=== PATIENT | female | born 1945 | race Caucasian/White ===

== ENCOUNTER → 2017-11-13 11:08 | Outpatient (CLI) | payer MEDICARE, SELFPAY ==
[2017-11-13 11:12] LABS: Bacteria 0 SEEN /hpf (None Seen); Mucous, Urine 0 SEEN /hpf (<or=2+); Red Blood Cells-Urine 0 SEEN /hpf (0-5); Squamous Epithelial Cells - UA 0 SEEN /hpf (5-10); White Blood Cells 0 SEEN /hpf (0-5)
[2017-11-13 14:42] LABS: Absolute Lymphocyte Count 1.34 X10^3/ul (0.83-4.51); Absolute Neutrophil Count 3.1 X10^3/uL (2.0-7.7); Basophil# 0.02 X10^3/uL; Basophil% 0.4 % (0-1); Hematocrit 40.1 % (37-47); Hemoglobin 12.9 g/dl (12.0-15.0); Lymphocyte # 1.34 X10^3/ul (4.0); Lymphocyte % 26.6 % (19-41); Mean Corp Hgb Conc 32.2 g/gl (32-36); Mean Corpuscular Hgb 29.8 pg (27.0-32.0); Mean Corpuscular Volume 92.6 fL (81-99); Mean Platelet Vol. 11.3 fl (6.2-12.0); Monocyte# 0.45 X10^3/uL; Monocyte% 8.9 % (0-10); Neutrophil # 3.13 X10^3/uL (2.7-7.7); Neutrophil % 62.1 % (47-70); POSITIVE COUNT NO; POSITIVE DIFFERENTIAL NO; POSITIVE MORPHOLOGY NO; Platelet Count 210 K/mm3 (150-450); RBC Distribution Width CV 13.2 % (11.6-14.6); RBC Distribution Width SD 43.9 fl (35.1-43.9); Red Blood Count 4.33 M/mm3 (4.2-5.4)
[2017-11-13 14:44] LABS: Color, Urine Yellow (Yellow); Glucose, Dipstick Normal (Normal); Ketone-Dipstick Negative (Negative); Protein-Dipstick Negative (Negative); Specific Gravity, Urine 1.005 (1.002-1.030); Urine Bilirubin Dipstick Negative (Negative); Urine Clarity Clear (Clear); Urine pH 6.5 (5.0 - 8.0)
[2017-11-13 14:45] LABS: Leukocyte Esterase-Dipstick Negative /ul (Negative); Nitrite-Dipstick Negative (Negative); Occult Blood-Urine Negative /ul (Negative); Urine Urobilinogen Normal (Normal)
[2017-11-13 14:58] LABS: Vitamin D,25 Hydroxy 46.2 ng/mL (29.95-100.01)
== END ==
PROVIDERS: Family Provider Family Medicine; PCP Family Medicine; Visit Provider Family Medicine
DX: N18.3 Chronic kidney disease, stage 3 (moderate) (principal)
CPT/HCPCS: 36415; 81001; 82306; 85025

== ENCOUNTER → 2017-11-20 10:41 | Outpatient (CLI) | payer MEDICARE, SELFPAY ==
[2017-11-20 12:28] LABS: Protein, Urine (Random) < 6.0 mg/dL (<11.9); Protein:Creat Ratio 65 mg/g CRE (0-200)
[2017-11-20 12:45] LABS: ALB/GLOB Ratio 0.9 RATIO (0.9-2.4); AST(SGOT) 20 U/L (15-37); Alanine Aminotransfer ALT/SGPT 20 U/L (13-56); Albumin, Serum 3.5 g/dL (3.2-5.0); Alkaline Phosphatase 69 U/L (45-117); Anion Gap 9 (5-15); BUN 12 mg/dL (7-18); BUN/Creat Ratio 9.3 RATIO (10-20); Chloride 108 mmol/L (98-107); Cholesterol 236 mg/dL (200); Creatinine, Serum 1.29 mg/dL (0.55-1.02); EST Glomerular Filtration Rate 43 mL/min (>60); Est Glom Filt Rate - Afr Amer 52 mL/min (>60); Globulin 3.9 g/dL (2.2-4.2); Glucose 110 mg/dL (74-106); High Density Lipoprotein 57 mg/dL; Phosphorus 3.4 mg/dL (2.5-4.9); Protein, Total 7.4 g/dL (6.4-8.2); Sodium Level 142 mmol/L (136-145); Thyroid Stim Hormone (TSH) 1.02 uIU/mL (0.358-3.74); Triglycerides 166 mg/dL; Very Low Density Lipoprotein 33 mg/dL (5-40)
[2017-11-20 12:55] LABS: PTHIN 44.5 pg/mL (18.4-80.1)
== END ==
PROVIDERS: Family Provider Family Medicine; PCP Family Medicine; Visit Provider Family Medicine
DX: I12.9 Hypertensive chronic kidney disease with stage 1 through stage 4 chronic kidney disease, or unspecified chronic kidney disease (principal); N18.3 Chronic kidney disease, stage 3 (moderate); E78.2 Mixed hyperlipidemia
CPT/HCPCS: 36415; 80053; 80061; 82570; 83970; 84100; 84156; 84443

== ENCOUNTER → 2018-01-29 10:51 | Outpatient (CLI) | payer MEDICARE, SELFPAY ==
--- NOTE | 2018-01-29 11:04 | BD_ITS ---
STUDY: DUAL ENERGY X-RAY ABSORPTIOMETRY / DXA REASON FOR EXAM: Female, 72 years old. The patient is postmenopausal. Loss of height. TECHNIQUE: Bone Mineral Density (BMD) measurements of lumbar spine and bilateral hips were obtained. COMPARISON: None. FINDINGS: Lumbar Spine (L1-L4): g/cm2 (1.009) / T-score (-1.6) / Z-score (0.2) Findings are suggestive of osteopenia with a moderate fracture risk. Left Femur Total: g/cm2 (0.771) / T-score (-1.9) / Z-score (-0.2) Left Femoral Neck: g/cm2 (0.645) / T-score (-2.8) / Z-score (-0.9) Right Femur Total: g/cm2 (0.796) / T-score (-1.7) / Z-score (0.0) Right Femoral Neck: g/cm2 (0.719) / T-score (-2.3) / Z-score (-0.4) BD/Dexa Bone Density Study IMPRESSION: The patient is considered osteoporotic as outlined below according to [employer] (WHO) criteria with a high fracture risk. Reference Information: The T-score is the number of standard deviations above or below the standard which is normal for young adults at their peak bone mineral density. The World Health Organization (WHO) interprets the T-scores as follows: Above -1 Normal bone density Between -1 and -2.5 Osteopenia Equal to / or below -2.5 Osteoporosis As a practical clinical guideline, osteopenia may be graded as follows: Mild -1 through -1.5 Moderate -1.6 through -2.0 Severe -2.1 through -2.4 The Z-score is the number of standard deviations above or below age-matched controls. A Z-score of less than -1.5 would be considered abnormal. References: 1. NIH Osteoporosis and Related Bone Diseases http://www.osteo.org 2. International Society for Clinical Densitometry http://www.iscd.org 3. National Osteoporosis Foundation http://www.nof.org Electronically Signed: Kevin Milton MD at 9:01 EDT Tel [phone], Service support ,
== END ==
PROVIDERS: Family Provider Family Medicine; PCP Family Medicine; Visit Provider Family Medicine
DX: Z13.820 Encounter for screening for osteoporosis (principal); Z78.0 Asymptomatic menopausal state; M81.0 Age-related osteoporosis without current pathological fracture
CPT/HCPCS: 77080

== ENCOUNTER → 2018-02-13 09:42 | Outpatient (CLI) | payer MEDICARE, SELFPAY ==
[2018-02-13 09:48] LABS: Bacteria 0 SEEN /hpf (None Seen); Mucous, Urine 0 SEEN /hpf (<or=2+); Red Blood Cells-Urine 0 SEEN /hpf (0-5); White Blood Cells 0 SEEN /hpf (0-5)
[2018-02-13 12:19] LABS: Color, Urine Yellow (Yellow); Glucose, Dipstick Normal (Normal); Ketone-Dipstick Negative (Negative); Leukocyte Esterase-Dipstick Negative /ul (Negative); Nitrite-Dipstick Negative (Negative); Occult Blood-Urine Negative /ul (Negative); Protein-Dipstick Negative (Negative); Urine Bilirubin Dipstick Negative (Negative); Urine Clarity Clear (Clear); Urine Urobilinogen Normal (Normal)
[2018-02-13 12:27] LABS: Squamous Epithelial Cells - UA 0-5 SEEN /hpf (5-10)
[2018-02-13 12:28] LABS: Protein, Urine (Random) 9.7 mg/dL (<11.9); Protein:Creat Ratio 102 mg/g CRE (0-200)
[2018-02-13 12:44] LABS: Hematocrit 40.1 % (37-47); Hemoglobin 12.8 g/dl (12.0-15.0); Mean Corp Hgb Conc 31.9 g/gl (32-36); Mean Corpuscular Hgb 29.4 pg (27.0-32.0); Mean Platelet Vol. 11.2 fl (6.2-12.0); Platelet Count 212 K/mm3 (150-450); RBC Distribution Width CV 13.7 % (11.6-14.6); RBC Distribution Width SD 45.2 fl (35.1-43.9); Red Blood Count 4.36 M/mm3 (4.2-5.4); White Blood Count 4.4 K/mm3 (4.4-11.0)
[2018-02-13 12:48] LABS: Scan Indicated on CBC? Y/N NO
[2018-02-13 13:01] LABS: ALB/GLOB Ratio 0.9 RATIO (0.9-2.4); AST(SGOT) 22 U/L (15-37); Alanine Aminotransfer ALT/SGPT 26 U/L (13-56); Albumin, Serum 3.5 g/dL (3.2-5.0); Alkaline Phosphatase 72 U/L (45-117); Anion Gap 7 (5-15); BUN 14 mg/dL (7-18); BUN/Creat Ratio 11.4 RATIO (10-20); Calcium,Total 8.8 mg/dL (8.5-10.1); Chloride 109 mmol/L (98-107); Creatinine, Serum 1.23 mg/dL (0.55-1.02); EST Glomerular Filtration Rate 45 mL/min (>60); Est Glom Filt Rate - Afr Amer 55 mL/min (>60); Globulin 3.8 g/dL (2.2-4.2); Glucose 87 mg/dL (74-106); Potassium 4.1 mmol/L (3.5-5.1); Protein, Total 7.3 g/dL (6.4-8.2); Sodium Level 141 mmol/L (136-145)
[2018-02-13 13:19] LABS: Vitamin D,25 Hydroxy 44.1 ng/mL (29.95-100.01)
== END ==
PROVIDERS: Family Provider Family Medicine; PCP Family Medicine; Visit Provider Family Medicine
DX: N18.3 Chronic kidney disease, stage 3 (moderate) (principal); E55.9 Vitamin D deficiency, unspecified
CPT/HCPCS: 36415; 80053; 81001; 82306; 82570; 84156; 85027

== ENCOUNTER → 2018-03-25 08:28 | Outpatient (CLI) | payer MEDICARE, SELFPAY ==
[2018-03-25 12:23] LABS: Anion Gap 5 (5-15); BUN 11 mg/dL (7-18); BUN/Creat Ratio 8.2 RATIO (10-20); Calcium,Total 9.4 mg/dL (8.5-10.1); Chloride 106 mmol/L (98-107); Creatinine, Serum 1.34 mg/dL (0.55-1.02); EST Glomerular Filtration Rate 41 mL/min (>60); Est Glom Filt Rate - Afr Amer 50 mL/min (>60); Glucose 99 mg/dL (74-106); Potassium 3.7 mmol/L (3.5-5.1); Sodium Level 140 mmol/L (136-145)
== END ==
PROVIDERS: Family Provider Family Medicine; PCP Family Medicine; Visit Provider Family Medicine
DX: I10 Essential (primary) hypertension (principal)
CPT/HCPCS: 36415; 80048

== ENCOUNTER → 2018-07-09 10:27 | Outpatient (CLI) | payer MEDICARE, SELFPAY ==
[2018-07-09 10:33] LABS: Bacteria 0 SEEN /hpf (None Seen); Mucous, Urine 0 SEEN /hpf (<or=2+); Red Blood Cells-Urine 0 SEEN /hpf (0-5); White Blood Cells 0 SEEN /hpf (0-5)
[2018-07-09 12:11] LABS: Absolute Lymphocyte Count 1.47 X10^3/ul (0.83-4.51); Absolute Neutrophil Count 2.9 X10^3/uL (2.0-7.7); Basophil# 0.03 X10^3/uL; Basophil% 0.6 % (0-1); Eosinophil# 0.12 X10^3/uL; Eosinophils% 2.4 % (0-5); Hematocrit 41.7 % (37-47); Hemoglobin 13.4 g/dl (12.0-15.0); Lymphocyte # 1.47 X10^3/ul (4.0); Lymphocyte % 29.2 % (19-41); Mean Corp Hgb Conc 32.1 g/gl (32-36); Mean Corpuscular Volume 93.3 fL (81-99); Mean Platelet Vol. 11.1 fl (6.2-12.0); Monocyte# 0.47 X10^3/uL; Monocyte% 9.3 % (0-10); Neutrophil # 2.93 X10^3/uL (2.7-7.7); Neutrophil % 58.3 % (47-70); Platelet Count 221 K/mm3 (150-450); RBC Distribution Width CV 13.4 % (11.6-14.6); RBC Distribution Width SD 44.1 fl (35.1-43.9); Red Blood Count 4.47 M/mm3 (4.2-5.4)
[2018-07-09 12:23] LABS: Anion Gap 8 (5-15); BUN 14 mg/dL (7-18); BUN/Creat Ratio 9.8 RATIO (10-20); Calcium,Total 9.4 mg/dL (8.5-10.1); Chloride 106 mmol/L (98-107); Cholesterol 242 mg/dL (200); Creatinine, Serum 1.43 mg/dL (0.55-1.02); EST Glomerular Filtration Rate 38 mL/min (>60); Est Glom Filt Rate - Afr Amer 46 mL/min (>60); Glucose 91 mg/dL (74-106); High Density Lipoprotein 56 mg/dL; Phosphorus 3.5 mg/dL (2.5-4.9); Sodium Level 140 mmol/L (136-145); Triglycerides 185 mg/dL; Very Low Density Lipoprotein 37 mg/dL (5-40)
[2018-07-09 12:25] LABS: POSITIVE COUNT NO; POSITIVE DIFFERENTIAL NO; POSITIVE MORPHOLOGY NO
[2018-07-09 12:29] LABS: Vitamin D,25 Hydroxy 43.2 ng/mL (29.95-100.01)
[2018-07-09 13:03] LABS: Color, Urine Yellow (Yellow); Glucose, Dipstick Normal (Normal); Ketone-Dipstick Negative (Negative); Leukocyte Esterase-Dipstick 25 /ul (Negative); Nitrite-Dipstick Negative (Negative); Occult Blood-Urine Negative /ul (Negative); Protein-Dipstick Negative (Negative); Specific Gravity, Urine 1.015 (1.002-1.030); Urine Bilirubin Dipstick Negative (Negative); Urine Clarity Clear (Clear); Urine Urobilinogen Normal (Normal)
[2018-07-09 13:13] LABS: Squamous Epithelial Cells - UA 0-5 SEEN /hpf (5-10)
--- OUTSIDE RECORDS SUMMARY | 2018-09-03 18:44 | XMS RPT_ITS ---
:1945 Author Organization OH[facility] Care Team Providers Name Role Phone GEORGES ESCOBAR Referring Unavailable Georges Escobar Attending Unavailable Georges Escobar Primary Care Unavailable Linda Perez D.C. Attending Unavailable Georges Escobar Referring Unavailable Georges Escobar Primary Care Unavailable Georges Escobar Attending Unavailable Georges Escobar Primary Care Unavailable Linda Perez D.C. Attending Unavailable Georges Escobar Attending Unavailable Georges Escobar Primary Care Unavailable Georges Escobar Attending Unavailable Georges Escobar Primary Care Unavailable Georges Escobar Attending Unavailable Georges Escobar Primary Care Unavailable Georges Escobar Attending Unavailable Georges Escobar Primary Care Unavailable PROBLEMS PROBLEMS DATE TYPE CONDITION / CODE ATTENDING STATUS SOURCE 01/29/2018 Unknown Z13.820 - Georges Escobar Active [facility] Encounter for E [facility] screening for [facility] osteoporosis / Repository Z13.820(ICD-10) 11/25/2017 Unknown M99.01 - Segmental Dossie, Linda Active [place] [facility] Community dysfunction of Hospital cervical region / Repository M99.01(ICD-10) 11/25/2017 Unknown M99.02 - Segmental Dossie, Linda Active [facility] dysfunction of Hospital thoracic region / Repository M99.02(ICD-10) 11/25/2017 Unknown M99.03 - Segmental Dossie, Linda Active [place] [facility] Community dysfunction of Hospital lumbar region / Repository M99.03(ICD-10) 11/25/2017 Unknown M99.05 - Segmental Dossie, Linda Active [place] [facility] Community dysfunction of Hospital pelvic region / Repository M99.05(ICD-10) 11/25/2017 Unknown M43.10 - Dossie, Linda Active [place] [facility] Community site unspecified / Hospital M43.10(ICD-10) Repository 11/19/2017 Unknown N18.3 - Chronic Georges Escobar Active [facility] kidney disease, E Community stage 3 (moderate) Hospital / N18.3(ICD-10) Repository 09/30/2017 Active Unknown / NA Active [facility] UNK(Unknown) [facility] [place] Repository PROCEDURES PROCEDURES No Procedure Records FoundRESULTS RESULTS BASIC METABOLIC Collected: 07/09/2018 Status: F Source: [facility] PROFILE (BMP) [facility] TYPE CODE TESTS RESULT OUT OF RANGE REFERENCE UNITS LAB L501.0100 74-106 mg/dL Normal GLU 91 Result Comment: Please note revised GLUCOSE reference range effective 2017. LAB L501.1000 7-18 mg/dL Normal BUN 14 LAB L501.1100 0.55-1.02 mg/dL High CREAT,SERUM 1.43 Result Comment: The validity of the calculated GFR AND GFRAA in patients over 70 years has not been determined. Clinical correlation is essential. LAB L501.1110 >60 mL/min Low EST GFR 38 Result Comment: Non- GFR Calc LAB L501.1115 >60 mL/min Low EST GFR - AA 46 Result Comment: GFR Calc LAB L501.1300 10-20 RATIO Low BUN/CRE 9.8 LAB L501.2200 8.5-10.1 mg/dL Normal CA 9.4 LAB L501.5300 136-145 mmol/L Normal NA 140 LAB L501.5600 3.5-5.1 mmol/L Normal K 4.0 LAB L501.5900 98-107 mmol/L Normal CL 106 LAB L501.6100 21.0-32.0 mmol/L Normal CO2 26.0 LAB L501.6200 5-15 Normal GAP 8 Performed By: #### L500.2500, L500.4100, L501.2300 #### [facility] [address] [place], [place], [id number] LIPID PROFILE Collected: 07/09/2018 Status: F Source: [facility] 10:30 AM [facility] REPOSITORY TYPE CODE TESTS RESULT OUT OF RANGE REFERENCE UNITS LAB L501.4900 200 mg/dL High CHOL 242 Result Comment: <200 mg/dL Desirable 200-240 mg/dL Borderline >240 mg/dL High Risk LAB L501.5000 mg/dL Normal TRIG 185 Result Comment: The drugs N-Acetylcysteine and Metamizole may falsely depress this assay. Serum Triglycerides Reference Interval Normal <150 mg/dL Borderline high 150 - 199 mg/dL High 200 - 499 mg/dL Very High > or = 500 mg/dL LAB L501.6400 mg/dL Normal HDL 56 Result Comment: The drugs N-Acetylcysteine and Metamizole may falsely depress this assay. Reference Range HDL <40 mg/dL Low HDL Cholesterol HDL >or= 60 mg/dL High HDL Cholesterol LAB L501.6500 0-130 mg/dL High LDL 149 LAB L501.6600 5-40 mg/dL Normal VLDL 37 Performed By: #### L500.2500, L500.4100, L501.2300 #### [facility] [address] [place], [address] PHOSPHORUS Collected: 07/09/2018 Status: F Source: [place] 10:30 AM [facility] REPOSITORY TYPE CODE TESTS RESULT OUT OF RANGE REFERENCE UNITS LAB L501.2300 2.5-4.9 mg/dL Normal PHOS 3.5 Performed By: #### L500.2500, L500.4100, L501.2300 #### [facility] [address] [place], [place], [address] CBC W/DIFF, AUTOMATED Collected: 07/09/2018 Status: F Source: [place] 10:30 AM [facility] REPOSITORY TYPE CODE TESTS RESULT OUT OF RANGE REFERENCE UNITS LAB L100.1000 4.4-11.0 K/mm3 Normal WBC 5.0 LAB L100.1200 4.2-5.4 M/mm3 Normal RBC 4.47 LAB L100.1300 12.0-15.0 g/dl Normal HGB 13.4 LAB L100.1400 37-47 % Normal HCT 41.7 LAB L100.1500 81-99 fL Normal MCV 93.3 LAB L100.1600 27.0-32.0 pg Normal MCH 30.0 LAB L100.1700 32-36 g/gl Normal MCHC 32.1 LAB L100.1810 11.6-14.6 % Normal RDW CV 13.4 LAB L100.1820 35.1-43.9 fl High RDW SD 44.1 LAB L100.1900 150-450 K/mm3 Normal PLT 221 LAB L100.2000 6.2-12.0 fl Normal MPV 11.1 LAB L100.2100 47-70 % Normal NEUT% 58.3 LAB L100.2200 19-41 % Normal LY% 29.2 LAB L100.2300 0-10 % Normal MONO% 9.3 LAB L100.2400 0-5 % Normal EO% 2.4 LAB L100.2500 0-1 % Normal BASO% 0.6 LAB L100.2550 0.0-0.9 % Normal IM GRAN % 0.200 Result Comment: IG% - Immature Granulocytes (promyelocytes, myelocytes and metamyelocytes) > 1% indicates that a LEFT SHIFT is Present. LAB L100.2620 2.0-7.7 X10 3/uL Normal Absolute Neut 2.9 LAB L100.2720 0.83-4.51 X10 3/ul Normal Absolute Lymph 1.47 Performed By: #### L100.0100 #### [facility] [address] [place], [address] VITAMIN D,25 HYDROXY Collected: 07/09/2018 Status: F Source: [place] 10:30 AM [facility] REPOSITORY TYPE CODE TESTS RESULT OUT OF RANGE REFERENCE UNITS LAB L506.1000 29.95-100.01 ng/mL Normal Vitamin D 43.2 25-OH Result Comment: Vitamin D 25(OH) Status Range Deficiency <20 ng/mL (50nmol/L) Insuffciency 20 - 30 ng/mL (50 - 75 nmol/L) Sufficiency 30 - 100 ng/mL (75 - 250 nmol/L) Toxicity >100 ng/mL (>250 nmol/L) Performed By: #### L506.1000 #### [facility] [address] [place], [address] URINALYSIS, COMPLETE Collected: 07/09/2018 Status: F Source: [facility] 10:30 AM [facility] REPOSITORY Order Comment: How was Urine Obtained? CLEAN CATCH TYPE CODE TESTS RESULT OUT OF RANGE REFERENCE UNITS LAB L400.3000 Yellow COLOR Normal Yellow LAB L400.3050 Clear Normal CLARITY Clear LAB L400.3200 Normal mg/dl Normal GLUCOSE, UR Normal LAB L400.3300 Negative mg/dL Normal BILIRUBIN URINE Negative LAB L400.3400 Negative mg/dl Normal KETONE UR Negative LAB L400.3465 1.002-1.030 Normal SP.GR. DIPSTX 1.015 LAB L400.3550 5.0 - 8.0 pH UR Normal 8.0 LAB L400.3600 Negative mg/dl PROT Normal DIPSTX Negative LAB L400.3700 Normal mg/dl Normal UROBILI Normal LAB L400.3750 Negative Normal NITRITE UR Negative LAB L400.3780 Negative /ul Normal OCCULT BLOOD-UR Negative LAB L400.3800 Negative /ul High LEUK 25 ESTERASE LAB L400.4050 0-5 /hpf WBC 0 Normal SEEN LAB L400.4100 0-5 /hpf 0 Normal RBC-UA SEEN LAB L400.4150 5-10 /hpf SQUAM Normal EPI 0-5 SEEN LAB L400.4300 None Seen /hpf 0 Normal BACTERIA SEEN LAB L400.4350 <or=2+ /hpf 0 Normal MUCUS, URINE SEEN Performed By: #### L400.0001 #### [facility] [address] [place], [place], [address] BASIC METABOLIC Collected: 03/25/2018 Status: F Source: [facility] PROFILE (BMP) 8:30 AM [facility] REPOSITORY Order Comment: Order Date: 03/18/18 Order Info: 0667-1 - BMP TYPE CODE TESTS RESULT OUT OF RANGE REFERENCE UNITS LAB L501.0100 74-106 mg/dL Normal GLU 99 Result Comment: Please note revised GLUCOSE reference range effective 2017. LAB L501.1000 7-18 mg/dL Normal BUN 11 LAB L501.1100 0.55-1.02 mg/dL High CREAT,SERUM 1.34 Result Comment: The validity of the calculated GFR AND GFRAA in patients over 70 years has not been determined. Clinical correlation is essential. LAB L501.1110 >60 mL/min Low EST GFR 41 Result Comment: Non- GFR Calc LAB L501.1115 >60 mL/min Low EST GFR - AA 50 Result Comment: GFR Calc LAB L501.1300 10-20 RATIO Low BUN/CRE 8.2 LAB L501.2200 8.5-10.1 mg/dL Normal CA 9.4 LAB L501.5300 136-145 mmol/L Normal NA 140 LAB L501.5600 3.5-5.1 mmol/L Normal K 3.7 LAB L501.5900 98-107 mmol/L Normal CL 106 LAB L501.6100 21.0-32.0 mmol/L Normal CO2 29.0 LAB L501.6200 5-15 Normal GAP 5 Performed By: #### L500.2500 #### [facility] [address] [place], [address] URINALYSIS, COMPLETE Collected: 02/13/2018 Status: F Source: [facility] 9:47 AM [facility] REPOSITORY Order Comment: How was Urine Obtained? CLEAN CATCH TYPE CODE TESTS RESULT OUT OF RANGE REFERENCE UNITS LAB L400.3000 Yellow COLOR Normal Yellow LAB L400.3050 Clear Normal CLARITY Clear LAB L400.3200 Normal mg/dl Normal GLUCOSE, UR Normal LAB L400.3300 Negative mg/dL Normal BILIRUBIN URINE Negative LAB L400.3400 Negative mg/dl Normal KETONE UR Negative LAB L400.3465 1.002-1.030 Normal SP.GR. DIPSTX 1.010 LAB L400.3550 5.0 - 8.0 pH UR Normal 7.0 LAB L400.3600 Negative mg/dl PROT Normal DIPSTX Negative LAB L400.3700 Normal mg/dl Normal UROBILI Normal LAB L400.3750 Negative Normal NITRITE UR Negative LAB L400.3780 Negative /ul Normal OCCULT BLOOD-UR Negative LAB L400.3800 Negative /ul LEUK Normal ESTERASE Negative LAB L400.4050 0-5 /hpf WBC 0 Normal SEEN LAB L400.4100 0-5 /hpf 0 Normal RBC-UA SEEN LAB L400.4150 5-10 /hpf SQUAM Normal EPI 0-5 SEEN LAB L400.4300 None Seen /hpf 0 Normal BACTERIA SEEN LAB L400.4350 <or=2+ /hpf 0 Normal MUCUS, URINE SEEN Performed By: #### L400.0001 #### [facility] [address] [place], [address] PROTEIN+CREATININE Collected: Status: F Source: [facility],URINE 02/13/2018 9:47 AM [facility] REPOSITORY TYPE CODE TESTS RESULT OUT OF RANGE REFERENCE UNITS LAB L501.1200 NO RANGE EST. mg/dL Normal UR CREAT 94.90 LAB L501.1930 <11.9 mg/dL Normal 9.7 PROTEIN,UR.R AN. LAB L501.1940 0-200 mg/g CRE Normal PROT:CRE 102 RATIO Performed By: #### L501.0900 #### [facility] [address] [place], [place], [address] CBC-COMPLETE BLOOD CNT Collected: 02/13/2018 Status: F Source: [facility] NO DIFF 9:47 AM [facility] REPOSITORY TYPE CODE TESTS RESULT OUT OF RANGE REFERENCE UNITS LAB L100.1000 4.4-11.0 K/mm3 Normal WBC 4.4 LAB L100.1200 4.2-5.4 M/mm3 Normal RBC 4.36 LAB L100.1300 12.0-15.0 g/dl Normal HGB 12.8 LAB L100.1400 37-47 % Normal HCT 40.1 LAB L100.1500 81-99 fL Normal MCV 92.0 LAB L100.1600 27.0-32.0 pg Normal MCH 29.4 LAB L100.1700 32-36 g/gl Low MCHC 31.9 LAB L100.1810 11.6-14.6 % Normal RDW CV 13.7 LAB L100.1820 35.1-43.9 fl High RDW SD 45.2 LAB L100.1900 150-450 K/mm3 Normal PLT 212 LAB L100.2000 6.2-12.0 fl Normal MPV 11.2 Performed By: #### L100.0500 #### [facility] [address] [place], [address] COMPREHENSIVE METABOLIC Collected: 02/13/2018 Status: F Source: [facility] 9:47 AM [facility] REPOSITORY TYPE CODE TESTS RESULT OUT OF RANGE REFERENCE UNITS LAB L501.0100 74-106 mg/dL Normal GLU 87 Result Comment: Please note revised GLUCOSE reference range effective 2017. LAB L501.1000 7-18 mg/dL Normal BUN 14 LAB L501.1100 0.55-1.02 mg/dL High CREAT,SERUM 1.23 Result Comment: The validity of the calculated GFR AND GFRAA in patients over 70 years has not been determined. Clinical correlation is essential. LAB L501.1110 >60 mL/min Low EST GFR 45 Result Comment: Non- GFR Calc LAB L501.1115 >60 mL/min Low EST GFR - AA 55 Result Comment: GFR Calc LAB L501.1300 10-20 RATIO Normal BUN/CRE 11.4 LAB L501.1500 6.4-8.2 g/dL T Normal PROT 7.3 LAB L501.1800 3.2-5.0 g/dL Normal ALB 3.5 LAB L501.1950 2.2-4.2 g/dL Normal GLOB 3.8 LAB L501.2000 0.9-2.4 RATIO Normal A/G 0.9 LAB L501.2200 8.5-10.1 mg/dL CA Normal 8.8 LAB L501.4100 15-37 U/L Normal AST 22 LAB L501.4305 45-117 U/L Normal ALK P 72 LAB L501.4405 13-56 U/L Normal ALT 26 LAB L501.4600 0.20-1.00 mg/dL T Normal BILI 0.50 LAB L501.5300 136-145 mmol/L NA Normal 141 LAB L501.5600 3.5-5.1 mmol/L K Normal 4.1 LAB L501.5900 98-107 mmol/L High CL 109 LAB L501.6100 21.0-32.0 mmol/L Normal CO2 25.0 LAB L501.6200 5-15 Normal GAP 7 Performed By: #### L500.4050 #### [facility] [address] [facility] [place], [address] VITAMIN D,25 HYDROXY Collected: 02/13/2018 Status: F Source: [facility] 9:47 AM [facility] REPOSITORY TYPE CODE TESTS RESULT OUT OF RANGE REFERENCE UNITS LAB L506.1000 29.95-100.01 ng/mL Normal Vitamin D 44.1 25-OH Result Comment: Vitamin D 25(OH) Status Range Deficiency <20 ng/mL (50nmol/L) Insuffciency 20 - 30 ng/mL (50 - 75 nmol/L) Sufficiency 30 - 100 ng/mL (75 - 250 nmol/L) Toxicity >100 ng/mL (>250 nmol/L) Performed By: #### L506.1000 #### [facility] [address] [facility] [place], [address] DEXA BONE DENSITY Observed: 01/29/2018 Status: F Source: [facility] STUDY 11:05 AM [facility] REPOSITORY [facility] Services [address] [place] [address] Dexa Bone Density Study MR#: [id number] Acct: [id number] Name: CHERELLE STRAUSSALETHEA Cm Rep #: [id number] : 1945 F 72 From: Kevin Milton MD PCP: Georges Escobar MD Status: REG CLI Study: Dexa Bone Density Study Date of Exam: 01/29/18 Exam# [id number] Ordering Dr: Georges Escobar MD STUDY: DUAL ENERGY X-RAY ABSORPTIOMETRY / DXA REASON FOR EXAM: Female, 72 years old. The patient is postmenopausal. Loss of height. TECHNIQUE: Bone Mineral Density (BMD) measurements of lumbar spine and bilateral hips were obtained. COMPARISON: None. FINDINGS: Lumbar Spine (L1-L4): g/cm2 (1.009) / T-score (-1.6) / Z-score (0.2) Findings are suggestive of osteopenia with a moderate fracture risk. Left Femur Total: g/cm2 (0.771) / T-score (-1.9) / Z- score (-0.2) Left Femoral Neck: g/cm2 (0.645) / T-score (-2.8) / Z- score (-0.9) Right Femur Total: g/cm2 (0.796) / T-score (-1.7) / Z- score (0.0) Right Femoral Neck: g/cm2 (0.719) / T-score (-2.3) / Z-score (-0.4) BD/Dexa Bone Density Study IMPRESSION: The patient is considered osteoporotic as outlined below according to World [employer] Organization (WHO) criteria with a high fracture risk. Reference Information: The T-score is the number of standard deviations above or below the standard which is normal for young adults at their peak bone mineral density. The World Health Organization (WHO) interprets the T-scores as follows: Above -1 Normal bone density Between -1 and -2.5 Osteopenia Equal to / or below -2.5 Osteoporosis As a practical clinical guideline, osteopenia may be graded as follows: Mild -1 through -1.5 Moderate -1.6 through -2.0 Severe -2.1 through -2.4 The Z-score is the number of standard deviations above or below age-matched controls. A Z-score of less than -1.5 would be considered abnormal. References: 1. NIH Osteoporosis and Related Bone Diseases http://www.osteo.org 2. International Society for Clinical Densitometry http://www.iscd.org 3. National Osteoporosis Foundation http://www.nof.org Electronically Signed: Kevin Milton MD at 9:01 EDT Tel [phone], Service support , CC: Georges Escobar MD Tissue Inserter: Signed PROTEIN+CREATININE Collected: Status: F Source: [facility],URINE 11/20/2017 10:42 AM [facility] REPOSITORY TYPE CODE TESTS RESULT OUT OF RANGE REFERENCE UNITS LAB L501.1200 NO RANGE EST. mg/dL Normal UR CREAT 89.80 LAB L501.1930 <11.9 mg/dL Normal < 6.0 PROTEIN,UR.R AN. LAB L501.1940 0-200 mg/g CRE Normal PROT:CRE 65 RATIO Performed By: #### L501.0900 #### [facility] [address] [place], [address] COMPREHENSIVE METABOLIC Collected: 11/20/2017 Status: F Source: [facility] PROFIL 10:42 AM [facility] REPOSITORY Order Comment: Order Date: 11/20/17 Order Info: [id number] - CMP Order Info: [id number] - LIPID Order Info: [id number] - PHOS Order Info: 3016-3 - TSH TYPE CODE TESTS RESULT OUT OF RANGE REFERENCE UNITS LAB L501.0100 74-106 mg/dL High GLU 110 Result Comment: Fasting Glucose result from 100 to 125 mg/dL suggests IMPAIRED HOMEOSTASIS per A.D.A. criteria. Please note revised GLUCOSE reference range effective 2017. LAB L501.1000 7-18 mg/dL Normal BUN 12 LAB L501.1100 0.55-1.02 mg/dL High CREAT,SERUM 1.29 Result Comment: The validity of the calculated GFR AND GFRAA in patients over 70 years has not been determined. Clinical correlation is essential. LAB L501.1110 >60 mL/min Low EST GFR 43 Result Comment: Non- GFR Calc LAB L501.1115 >60 mL/min Low EST GFR - AA 52 Result Comment: GFR Calc LAB L501.1300 10-20 RATIO Low BUN/CRE 9.3 LAB L501.1500 6.4-8.2 g/dL Normal T PROT 7.4 LAB L501.1800 3.2-5.0 g/dL Normal ALB 3.5 LAB L501.1950 2.2-4.2 g/dL Normal GLOB 3.9 LAB L501.2000 0.9-2.4 RATIO Normal A/G 0.9 LAB L501.2200 8.5-10.1 mg/dL Normal CA 9.0 LAB L501.4100 15-37 U/L Normal AST 20 LAB L501.4305 45-117 U/L Normal ALK P 69 LAB L501.4405 13-56 U/L Normal ALT 20 Result Comment: Please note revised ALT reference range effective 2017. LAB L501.4600 0.20-1.00 mg/dL Normal T BILI 0.40 LAB L501.5300 136-145 mmol/L Normal NA 142 LAB L501.5600 3.5-5.1 mmol/L Normal K 4.0 LAB L501.5900 98-107 mmol/L High CL 108 LAB L501.6100 21.0-32.0 mmol/L Normal CO2 25.0 LAB L501.6200 5-15 Normal GAP 9 Performed By: #### L500.4050, L500.4100, L501.2300, L501.9520, L509.1000 #### [facility] [address] [place], [address] LIPID PROFILE Collected: 11/20/2017 Status: F Source: [facility] 10:42 AM [facility] REPOSITORY Order Comment: Order Date: 11/20/17 Order Info: [id number] - CMP Order Info: [id number] - LIPID Order Info: [id number] - PHOS Order Info: 3016-3 - TSH TYPE CODE TESTS RESULT OUT OF RANGE REFERENCE UNITS LAB L501.4900 200 mg/dL High CHOL 236 Result Comment: <200 mg/dL Desirable 200-240 mg/dL Borderline >240 mg/dL High Risk LAB L501.5000 mg/dL Normal TRIG 166 Result Comment: The drugs N-Acetylcysteine and Metamizole may falsely depress this assay. Serum Triglycerides Reference Interval Normal <150 mg/dL Borderline high 150 - 199 mg/dL High 200 - 499 mg/dL Very High > or = 500 mg/dL LAB L501.6400 mg/dL Normal HDL 57 Result Comment: The drugs N-Acetylcysteine and Metamizole may falsely depress this assay. Reference Range HDL <40 mg/dL Low HDL Cholesterol HDL >or= 60 mg/dL High HDL Cholesterol LAB L501.6500 0-130 mg/dL High LDL 146 LAB L501.6600 5-40 mg/dL Normal VLDL 33 Performed By: #### L500.4050, L500.4100, L501.2300, L501.9520, L509.1000 #### [facility] [address] [place], [place], [address] PHOSPHORUS Collected: 11/20/2017 Status: F Source: [facility] 10:42 AM [facility] REPOSITORY Order Comment: Order Date: 11/20/17 Order Info: [id number] - CMP Order Info: [id number] - LIPID Order Info: [id number] - PHOS Order Info: 3016-3 - TSH TYPE CODE TESTS RESULT OUT OF RANGE REFERENCE UNITS LAB L501.2300 2.5-4.9 mg/dL Normal PHOS 3.4 Performed By: #### L500.4050, L500.4100, L501.2300, L501.9520, L509.1000 #### [facility] [address] [place], [place], [address] THYROID STIM HORMONE Collected: 11/20/2017 Status: F Source: [facility] (TSH) 10:42 AM [facility] REPOSITORY Order Comment: Order Date: 11/20/17 Order Info: [id number] - CMP Order Info: [id number] - LIPID Order Info: [id number] - PHOS Order Info: 3016-3 - TSH TYPE CODE TESTS RESULT OUT OF RANGE REFERENCE UNITS LAB L501.9520 0.358-3.74 uIU/mL Normal TSH 1.02 Performed By: #### L500.4050, L500.4100, L501.2300, L501.9520, L509.1000 #### [facility] [address] [place], [address] PTHIN Collected: 11/20/2017 Status: F Source: [facility] 10:42 AM [facility] REPOSITORY Order Comment: Order Date: 11/20/17 Order Info: [id number] - PTHIN TYPE CODE TESTS RESULT OUT OF RANGE REFERENCE UNITS LAB L509.1000 18.4-80.1 pg/mL Normal PTHIN 44.5 Result Comment: Please Note: PTH INTACT METHOD AND REFERENCE RANGE CHANGE Effective 07/31/2017. Performed By: #### L500.4050, L500.4100, L501.2300, L501.9520, L509.1000 #### [facility] [address] [place], [address] CHIROPRACTIC REPORT Observed: 11/20/2017 Status: F Source: [facility] 10:05 AM [facility] REPOSITORY [facility] [address] [place] [address] OFFICE VISIT Date of Service: 11/18/17 MR#: [id number] Acct: [id number] Name: HAYDEE STRAUSS N Rep #: [id number] : 1945 Provider: Linda Benítez D.C. Age/Sex: 72/F Location: [facility] Status: Signed Intake Vital Signs11/18/17 Height 5 ft 4 in 11/18/17 Weight: 215 lb 11/18/17 Body Mass Index (BMI) 36.8 Intake Visit Reasons: R back pain Is patient in pain?: Yes PFSH Medical History Anterolisthesis (Chronic) Social History Smoking Status: Former smoker HPI R back pain : Chief Complaint: low back pain Visit Number: 1 Referral source: previous patient Details: HAYDEE STRAUSS is a 72 year old F who presents with R sided low back pain with insideous onset. She states that over the past four days she has noticed a sharp ache in the low back, today Haydee rates her pain a 4/10 although lifting her R leg to tie her shoes causes a sharp shooting pain that is a 7/10. The pain is staying localized to the R low back, with a specific area, she denies any numbness or tingling. Haydee also gets occasional upper back tightness and discomfort. No headaches. Onset: 11/12/17 Location: R low back Duration: constant Aggravating or associated factors: transitioning to standing, lifting the R leg Relieving factors: N/A Pain Quality: aching, dull Exam Musc General: Yes normal gait, joint tenderness (C6, T3, T4, L3- L5, R SI) and decreased ROM; no normal posture (decreased lumbar lordosis) Cervical Spine: loss of normal cervical lordosis (slight anterior head carriage), pain with cervical ROM with lateral flexion to left, with lateral flexion to right, with anterior flexion and with extension, cervical spasm, cervical ROM abnormal lateral flexion to the right decreased, lateral flexion to the left decreased and extension decreased Thoracic/Lumbar Spine: thor and lumb spine abnorm to inspection (left posteriorly rotated pelvis), Lasegue's sign positive on the right, pain with thoraco-lumbar ROM with forward flexion, with lateral flexion to the left, with lateral flexion to the right and with rotation to the right, thoraco-lumbar ROM limited with forward flexion and with lateral flexion to the left, thoraco-lumbar spasm on the right in the lower lumbar and bilaterally in the upper thoracic and in the mid thoracic, straight leg raise negative Neuro General: alert, awake, oriented x3, gait normal, normal light touch, pain and propioception, no focal motor deficits Ortho Test CERVICAL Compression pain: Negative Distraction pain: relief Miquel's pain: Negative Valsalvas: Negative Shoulder depression pain: Right (bilateral) THORACIC Kemps: Negative Schepelmanns pain: Negative Jasso: Negative LUMBAR Kemps: Positive, Rig Valsalvas: Negative SLR: Negative Iliac Compression: Positive, Rig Office Procedures Chiropractic Treatments Procedures Manipulation: 3-4 regions (C6, T3, L3,L5, RIL) Assessment AND Plan 1. Segmental and somatic dysfunction of cervical region M99.01 Orders Orders: 2. Segmental and somatic dysfunction of thoracic region M99.02 Orders Orders: 3. Segmental and somatic dysfunction of pelvic region M99.05 Orders Orders: 4. Segmental and somatic dysfunction of lumbar region M99.03 Orders Orders: 5. Anterolisthesis M43.10 Orders Orders: Plan Detail Goals Decrease pain and spasm Improve ROM Barriers Anterolisthesis of L4 on L5 Follow Up 1 Week Coding Level of Care Code Off vis,est,level 1 Diagnoses Segmental and somatic dysfunction of cervical region M99.01 Segmental and somatic dysfunction of thoracic region M99.02 Segmental and somatic dysfunction of pelvic region M99.05 Segmental and somatic dysfunction of lumbar region M99.03 Anterolisthesis M43.10 Additional Codes Procedures - Manipulation: 3-4 regions (62723) 11/20/17 1005 <Electronically signed by Linda Benítez D.C.> Date Linda Benítez D.C. Cosigner Signature: Date (if applicable) CC: CBC W/DIFF, AUTOMATED Collected: 11/13/2017 Status: F Source: [facility] 11:11 AM [facility] REPOSITORY Order Comment: Order Date: 06/27/17 Order Info: [id number] - CBCD TYPE CODE TESTS RESULT OUT OF RANGE REFERENCE UNITS LAB L100.1000 4.4-11.0 K/mm3 Normal WBC 5.0 LAB L100.1200 4.2-5.4 M/mm3 Normal RBC 4.33 LAB L100.1300 12.0-15.0 g/dl Normal HGB 12.9 LAB L100.1400 37-47 % Normal HCT 40.1 LAB L100.1500 81-99 fL Normal MCV 92.6 LAB L100.1600 27.0-32.0 pg Normal MCH 29.8 LAB L100.1700 32-36 g/gl Normal MCHC 32.2 LAB L100.1810 11.6-14.6 % Normal RDW CV 13.2 LAB L100.1820 35.1-43.9 fl Normal RDW SD 43.9 LAB L100.1900 150-450 K/mm3 Normal PLT 210 LAB L100.2000 6.2-12.0 fl Normal MPV 11.3 LAB L100.2100 47-70 % Normal NEUT% 62.1 LAB L100.2200 19-41 % Normal LY% 26.6 LAB L100.2300 0-10 % Normal MONO% 8.9 LAB L100.2400 0-5 % Normal EO% 2.0 LAB L100.2500 0-1 % Normal BASO% 0.4 LAB L100.2550 0.0-0.9 % Normal IM GRAN % 0.000 Result Comment: IG% - Immature Granulocytes (promyelocytes, myelocytes and metamyelocytes) > 1% indicates that a LEFT SHIFT is Present. LAB L100.2620 2.0-7.7 X10 3/uL Normal Absolute Neut 3.1 LAB L100.2720 0.83-4.51 X10 3/ul Normal Absolute Lymph 1.34 Performed By: #### L100.0100, L400.0001, L506.1000 #### [facility] [address] [place], [place], [address] URINALYSIS, COMPLETE Collected: 11/13/2017 Status: F Source: [place] 11:11 AM [facility] REPOSIT[facility] Order Comment: Order Date: 06/27/17 Order Info: [id number] - UAC How was Urine Obtained? BUTTER MAKER TO SPECIFY TYPE CODE TESTS RESULT OUT OF RANGE REFERENCE UNITS LAB L400.3000 Yellow COLOR Normal Yellow LAB L400.3050 Clear Normal CLARITY Clear LAB L400.3200 Normal mg/dl Normal GLUCOSE, UR Normal LAB L400.3300 Negative mg/dL Normal BILIRUBIN URINE Negative LAB L400.3400 Negative mg/dl Normal KETONE UR Negative LAB L400.3465 1.002-1.030 Normal SP.GR. DIPSTX 1.005 LAB L400.3550 5.0 - 8.0 pH UR Normal 6.5 LAB L400.3600 Negative mg/dl PROT Normal DIPSTX Negative LAB L400.3700 Normal mg/dl Normal UROBILI Normal LAB L400.3750 Negative Normal NITRITE UR Negative LAB L400.3780 Negative /ul Normal OCCULT BLOOD-UR Negative LAB L400.3800 Negative /ul LEUK Normal ESTERASE Negative LAB L400.4050 0-5 /hpf WBC 0 Normal SEEN LAB L400.4100 0-5 /hpf 0 Normal RBC-UA SEEN LAB L400.4150 5-10 /hpf SQUAM 0 Normal EPI SEEN LAB L400.4300 None Seen /hpf 0 Normal BACTERIA SEEN LAB L400.4350 <or=2+ /hpf 0 Normal MUCUS, URINE SEEN Performed By: #### L100.0100, L400.0001, L506.1000 #### [facility] [address] [place], [address] VITAMIN D,25 HYDROXY Collected: 11/13/2017 Status: F Source: [place] 11:11 AM [facility] REPOSITORY Order Comment: Order Date: 06/27/17 Order Info: [id number] - VITD25 TYPE CODE TESTS RESULT OUT OF RANGE REFERENCE UNITS LAB L506.1000 29.95-100.01 ng/mL Normal Vitamin D 46.2 25-OH Result Comment: Vitamin D 25(OH) Status Range Deficiency <20 ng/mL (50nmol/L) Insuffciency 20 - 30 ng/mL (50 - 75 nmol/L) Sufficiency 30 - 100 ng/mL (75 - 250 nmol/L) Toxicity >100 ng/mL (>250 nmol/L) Performed By: #### L100.0100, L400.0001, L506.1000 #### [facility] [address] [place], [address] XR CHEST 2V FRONTAL/LAT Observed: 09/30/2017 Status: F Source: [place] 9:02 AM [facility] REPOSITORY * * *Final Report* * * DATE OF EXAM: Sep 30 2017 9:02AM WRX 5291 - XR CHEST 2V FRONTAL/LAT / PROCEDURE REASON: lung nodule * * * * Physician Interpretation * * * * EXAMINATION: CHEST RADIOGRAPH (2 VIEW FRONTAL and LATERAL) Clinical History: lung nodule M: XC2_4 Comparison: 09/26/2011 RESULT: Lines, tubes, and devices: None. Lungs and pleura: There is a stable 1 cm nodule within the left upper lobe and areas of scarring within the right middle lobe, lingula and left lower lobe. No additional nodules are identified. There is no evidence of consolidation, pleural effusion or pneumothorax. Pulmonary vascularity is normal. Cardiomediastinal silhouette: Normal cardiomediastinal silhouette. There is atherosclerotic calcification within the aortic arch. Other: There is diffuse osteopenia and multilevel degenerative disc disease predominantly involving the mid to upper thoracic spine. IMPRESSION: NO ACUTE RADIOGRAPHIC ABNORMALITY. STABLE LEFT UPPER LOBE NODULE AND AREAS OF SCARRING WITHIN BOTH LUNGS. Tissue Inserter: WILLIAM Transcribe Date/Time: Sep 30 2017 10:37A Dictated by : DEIRDRE ZIMMERMAN MD This examination was interpreted and the report reviewed and electronically signed by: DEIRDRE ZIMMERMAN MD on Sep 30 2017 10:41AM EST [id number] PROGRESS Observed: 09/30/2017 Status: COMPLETED Source: [place] 8:54 AM [facility] REPOSITORY HNO ID: [id number] Author: Inocencia Jung (Rt) Alvaro [place] Service: (none) Author Type: Java Sql Developer Type: Progress Notes Filed: 09/30/2017 9:03 AM Note Text: Radiology Service Progress Note PATIENT NAME: Haydee Strauss DATE OF SERVICE: September 30, 2017 TIME: 8:54 AM PATIENT IDENTITY VERIFICATION COMPLETED USING TWO (2) METHODS: Patient confirmed name verbally and Date of . PATIENT GENDER DATA: Female. status: : No status: NO. PATIENT RELEVANT IMPLANT DATA REVIEWED: Not Applicable RADIOLOGY DEPARTMENT: General X-ray: Exam(s) Completed: Chest X-Ray PERIPHERAL IV DATA: Not applicable SIGNED BY: RT Marcin September 30, 2017 8:54 AM ALLERGIES ALLERGIES DATE TYPE / CODE NAME / CODE REACTION SEVERITY SOURCE 04/22/2006 Drug SULFA HIVES [facility] Class/266113 (SULFONAMIDE [place] 003(SNOMED ANTIBIOTICS) Repository CT) ENCOUNTERS ENCOUNTERS ADMIT/DISCHARGE ACCOUNT ADMITTING ENCOUNTER LOCATION SOURCE NUMBER CLASS 07/09/[id number] [facility] ing:MFPLAB Repository 03/25/[id number] [facility] ing:MFPLAB Repository 02/13/[id number] [facility] ing:MFPLAB Repository 01/29/[id number] [facility] ing:OPBD Repository 11/25/2017 [id number] Ambulatory BMS[place] Repository 11/20/2017 [id number] [facility] 11/18/2017/11/19/19 [id number] Ambulatory BMSBuilding:B [place] [address] [facility] Repository 11/13/2017 [id number] Ambulatory [facility] ing:MFPLAB Repository 09/30/2017/09/30/19 [id number] Ambulatory [address] Repository PAYERS PAYERS ENCOUNTER GUARANTOR PAYER SUBSCRIBER SOURCE 07/09/2018 JAYCE Hogan Primary HAYDEE N [place] [id number] Insurance:AETNA SCHLUNDDOB: [facility] [place] [id number] [id number] Repository [address]Nli: 234) Date:3114-31-34MH [phone] () [id number] [address]AE: 07/09/2018 Secondary NOT GIVENUNK [place] Insurance:SELF PAY [facility] Number: Effective Repository Date:2018-07-09 03/25/2018 JAYCE Hogan Primary HAYDEE N [place] [id number] Insurance:AETNA SCHLUNDDOB: [facility] Number: [id number] [id number] Repository [address]Ijm: ([phone]) Date:2134-42-96DG [phone] ) [id number] [address]RL: 03/25/2018 Secondary NOT GIVENUNK [place] Insurance:SELF PAY [facility] Number: Effective Repository Date:2018-03-25 02/13/2018 JAYCE Hogan Primary HAYDEE N [place] [id number] Insurance:AETNA SCHLUNDDOB: [facility] Number: [id number][place] [id number] Repository [address]Rzj: ([phone]) Date:7864-05-21SP [phone] (HP) [id number] [place] [address]CR: 02/13/2018 Secondary NOT GIVENUNK [place] Insurance:SELF PAY [facility] Number: Effective Repository Date:2018-02-13 01/29/2018 JAYCE Hogan Primary HAYDEE N [place] [id number] Insurance:AETNA SCHLUNDDOB: [facility] [place] Number: [id number], [place] [id number] Repository [address]Fvq: ([phone]) Date:2227-55-92DI [phone] (HP) [id number] [place] [address]FF: 01/29/2018 Secondary NOT GIVENUNK [place] Insurance:SELF PAY [facility] Number: Effective Repository Date:2018-01-23 11/25/2017 JAYCE Hogan Primary HAYDEE N [place] [id number] Insurance:AETNA SCHLUNDDOB: [facility] Number: [id number], [place] [id number] Repository [address]Thi: ([phone]) Date:3986-30-28QU [phone] (HP) [id number] [place], [place] [address]DT: 11/25/2017 Secondary NOT GIVENUNK [place] Insurance:SELF PAY [facility] Number: Effective Repository Date:2017-11-21 11/20/2017 JAYCE Hogan Primary HAYDEE N [place] [id number] Insurance:AETNA SCHLUNDDOB: [facility] Number: [id number], [place] [id number] Repository [address]Pjv: ([phone]) Date:4799-89-19VR [phone] (HP) [id number] [place] [address]HU: 11/20/2017 Secondary NOT GIVENUNK [place] Insurance:SELF PAY [facility] Number: Effective Repository Date:2017-11-20 11/18/2017 JAYCE A Primary HAYDEE N [place] [id number] Insurance:AETNA SCHLUNDDOB: [facility] Number: [id number], [place] [id number] Repository [address]Bcr: ([phone]) Date:5621-17-72YJ [phone] () [id number] [place] [address]XF: 11/18/2017 Secondary NOT GIVENUNK [place] Insurance:SELF PAY [facility] Number: Effective Repository Date:2017-11-18 11/13/2017 JAYCE Hogan Primary HAYDEE N [place] [id number] Insurance:AETNA JANETLUNDDOB: [facility] Number: [id number], [place] [id number] Repository [address]Zso: ([phone]) Date:2720-77-37PM [phone] () [id number] [place] [address]JK: 11/13/2017 Secondary NOT GIVENUNK [place] Insurance:SELF PAY [facility] Number: Effective Repository Date:2017-11-13
== END ==
PROVIDERS: Family Provider Family Medicine; PCP Family Medicine; Visit Provider Family Medicine
DX: N18.3 Chronic kidney disease, stage 3 (moderate) (principal); E78.2 Mixed hyperlipidemia; M81.0 Age-related osteoporosis without current pathological fracture
CPT/HCPCS: 36415; 80048; 80061; 81001; 82306; 84100; 85025

== ENCOUNTER → 2018-11-06 08:52 | Outpatient (CLI) | payer MEDICARE, SELFPAY ==
[2018-11-06 08:55] LABS: Bacteria 0 SEEN /hpf (None Seen); Mucous, Urine 0 SEEN /hpf (<or=2+); Red Blood Cells-Urine 0 SEEN /hpf (0-5); White Blood Cells 0 SEEN /hpf (0-5)
[2018-11-06 09:58] LABS: Color, Urine Yellow (Yellow); Glucose, Dipstick Normal (Normal); Ketone-Dipstick Negative (Negative); Leukocyte Esterase-Dipstick 25 /ul (Negative); Nitrite-Dipstick Negative (Negative); Occult Blood-Urine Negative /ul (Negative); Protein-Dipstick Negative (Negative); Urine Bilirubin Dipstick Negative (Negative); Urine Clarity Clear (Clear); Urine Urobilinogen Normal (Normal)
[2018-11-06 10:10] LABS: Absolute Lymphocyte Count 1.34 X10^3/ul (0.83-4.51); Absolute Neutrophil Count 2.4 X10^3/uL (2.0-7.7); Basophil# 0.02 X10^3/uL; Basophil% 0.5 % (0-1); Eosinophil# 0.12 X10^3/uL; Eosinophils% 2.9 % (0-5); Hematocrit 40.1 % (37-47); Hemoglobin 12.7 g/dl (12.0-15.0); Lymphocyte # 1.34 X10^3/ul (4.0); Lymphocyte % 31.9 % (19-41); Mean Corp Hgb Conc 31.7 g/gl (32-36); Mean Corpuscular Hgb 29.6 pg (27.0-32.0); Mean Corpuscular Volume 93.5 fL (81-99); Mean Platelet Vol. 11.2 fl (6.2-12.0); Monocyte# 0.37 X10^3/uL; Monocyte% 8.8 % (0-10); Neutrophil # 2.35 X10^3/uL (2.7-7.7); Neutrophil % 55.9 % (47-70); Platelet Count 204 K/mm3 (150-450); RBC Distribution Width CV 13.5 % (11.6-14.6); Red Blood Count 4.29 M/mm3 (4.2-5.4); White Blood Count 4.2 K/mm3 (4.4-11.0)
[2018-11-06 10:11] LABS: Squamous Epithelial Cells - UA 0-5 SEEN /hpf (5-10)
[2018-11-06 10:17] LABS: POSITIVE COUNT NO; POSITIVE DIFFERENTIAL NO; POSITIVE MORPHOLOGY NO
[2018-11-06 10:24] LABS: Protein, Urine (Random) 10.1 mg/dL (<11.9); Protein:Creat Ratio 83 mg/g CRE (0-200)
[2018-11-06 10:40] LABS: AST(SGOT) 21 U/L (15-37); Alanine Aminotransfer ALT/SGPT 24 U/L (13-56); Albumin, Serum 3.5 g/dL (3.2-5.0); Alkaline Phosphatase 64 U/L (45-117); Anion Gap 7 (5-15); BUN 9 mg/dL (7-18); Chloride 110 mmol/L (98-107); Creatinine, Serum 1.29 mg/dL (0.55-1.02); EST Glomerular Filtration Rate 43 mL/min (>60); Est Glom Filt Rate - Afr Amer 52 mL/min (>60); Globulin 3.6 g/dL (2.2-4.2); Glucose 88 mg/dL (74-106); Potassium 3.8 mmol/L (3.5-5.1); Protein, Total 7.1 g/dL (6.4-8.2); Sodium Level 143 mmol/L (136-145)
[2018-11-06 10:46] LABS: Vitamin D,25 Hydroxy 42.7 ng/mL (29.95-100.01)
== END ==
PROVIDERS: Family Provider Family Medicine; PCP Family Medicine; Referring Provider Family Medicine; Visit Provider Family Medicine
DX: I12.9 Hypertensive chronic kidney disease with stage 1 through stage 4 chronic kidney disease, or unspecified chronic kidney disease (principal); N18.3 Chronic kidney disease, stage 3 (moderate); E55.9 Vitamin D deficiency, unspecified
CPT/HCPCS: 36415; 80053; 81001; 82306; 82570; 84156; 85025

== ENCOUNTER → 2019-05-11 08:42 | Outpatient (CLI) | payer MEDICARE, SELFPAY ==
[2019-05-11 12:29] LABS: Absolute Lymphocyte Count 1.34 X10^3/uL (0.83-4.51); Absolute Neutrophil Count 2.6 X10^3/uL (2.0-7.7); Basophil# 0.04 X10^3/uL; Basophil% 0.9 % (0-1); Eosinophil# 0.17 X10^3/uL; Eosinophils% 3.7 % (0-5); Hematocrit 38.9 % (37-47); Hemoglobin 12.5 g/dL (12.0-15.0); Lymphocyte # 1.34 X10^3/ul (4.0); Mean Corp Hgb Conc 32.1 g/dL (32-36); Mean Corpuscular Hgb 30.3 pg (27.0-32.0); Mean Corpuscular Volume 94.4 fL (81-99); Mean Platelet Vol. 11.2 fl (6.2-12.0); Monocyte# 0.43 X10^3/uL; Monocyte% 9.3 % (0-10); NRBC Flagged by Analyzer 0 % (0-5); Neutrophil # 2.63 X10^3/uL (2.7-7.7); Neutrophil % 56.9 % (47-70); Platelet Count 189 K/mm3 (150-450); RBC Distribution Width CV 12.8 % (11.6-14.6); RBC Distribution Width SD 44.2 fl (35.1-43.9); Red Blood Count 4.12 M/mm3 (4.2-5.4); White Blood Count 4.6 K/mm3 (4.4-11.0)
[2019-05-11 13:27] LABS: AST(SGOT) 20 U/L (15-37); Alanine Aminotransfer ALT/SGPT 23 U/L (13-56); Albumin, Serum 3.4 g/dL (3.2-5.0); Alkaline Phosphatase 68 U/L (45-117); Anion Gap 6 (5-15); BUN 14 mg/dL (7-18); BUN/Creat Ratio 9.8 RATIO (10-20); Chloride 110 mmol/L (98-107); Cholesterol 207 mg/dL (200); Creatinine, Serum 1.43 mg/dL (0.55-1.02); EST Glomerular Filtration Rate 38 mL/min (>60); Est Glom Filt Rate - Afr Amer 46 mL/min (>60); Globulin 3.3 g/dL (2.2-4.2); Glucose 88 mg/dL (74-106); High Density Lipoprotein 56 mg/dL; Protein, Total 6.7 g/dL (6.4-8.2); Sodium Level 141 mmol/L (136-145); Thyroid Stim Hormone (TSH) 1.57 uIU/mL (0.358-3.74); Triglycerides 137 mg/dL; Very Low Density Lipoprotein 27 mg/dL (5-40)
== END ==
PROVIDERS: Family Provider Family Medicine; PCP Family Medicine; Referring Provider Family Medicine; Visit Provider Family Medicine
DX: I12.9 Hypertensive chronic kidney disease with stage 1 through stage 4 chronic kidney disease, or unspecified chronic kidney disease (principal); N18.3 Chronic kidney disease, stage 3 (moderate); E78.2 Mixed hyperlipidemia
CPT/HCPCS: 36415; 80053; 80061; 84443; 85025

== ENCOUNTER → 2019-09-14 10:26 | Outpatient (CLI) | payer MEDICARE, SELFPAY ==
[2019-09-14 12:35] LABS: PTHIN 25.9 pg/mL (18.4-80.1); Protein, Urine (Random) < 6.0 mg/dL (<11.9); Protein:Creat Ratio 72 mg/g CRE (0-200); Vitamin D,25 Hydroxy 35.7 ng/mL (29.95-100.01)
[2019-09-14 12:36] LABS: ALB/GLOB Ratio 0.9 RATIO (0.9-2.4); AST(SGOT) 17 U/L (15-37); Alanine Aminotransfer ALT/SGPT 24 U/L (13-56); Albumin, Serum 3.5 g/dL (3.2-5.0); Alkaline Phosphatase 75 U/L (45-117); Anion Gap 5 (5-15); BUN 14 mg/dL (7-18); BUN/Creat Ratio 9.8 RATIO (10-20); Calcium,Total 9.5 mg/dL (8.5-10.1); Chloride 106 mmol/L (98-107); Creatinine, Serum 1.43 mg/dL (0.55-1.02); EST Glomerular Filtration Rate 38 mL/min (>60); Est Glom Filt Rate - Afr Amer 46 mL/min (>60); Globulin 3.7 g/dL (2.2-4.2); Glucose 90 mg/dL (74-106); Phosphorus 3.4 mg/dL (2.5-4.9); Protein, Total 7.2 g/dL (6.4-8.2); Sodium Level 138 mmol/L (136-145)
== END ==
PROVIDERS: PCP Family Medicine; Referring Provider Family Medicine; Visit Provider Family Medicine
DX: I12.9 Hypertensive chronic kidney disease with stage 1 through stage 4 chronic kidney disease, or unspecified chronic kidney disease (principal); N18.3 Chronic kidney disease, stage 3 (moderate); M81.0 Age-related osteoporosis without current pathological fracture; E55.9 Vitamin D deficiency, unspecified
CPT/HCPCS: 36415; 80053; 82306; 82570; 83970; 84100; 84156

== ENCOUNTER → 2019-09-28 10:43 | Outpatient (CLI) | payer MEDICARE, SELFPAY ==
[2019-09-28 12:51] LABS: Vitamin B12 592 pg/mL (211-911)
== END ==
PROVIDERS: PCP Family Medicine; Referring Provider Family Medicine; Visit Provider Family Medicine
DX: R41.3 Other amnesia (principal)
CPT/HCPCS: 36415; 82607

== ENCOUNTER → 2020-01-13 14:10 | Outpatient (CLI) | payer MEDICARE, SELFPAY ==
--- NOTE | 2020-01-13 14:29 | RAD_ITS ---
STUDY: X-RAY - LEFT SHOULDER REASON FOR EXAM: Female, 74 years old. PAIN X 1 YEAR, NO INJURY TECHNIQUE: 4 view(s) of the shoulder. COMPARISON: None. FINDINGS: Normal glenohumeral articulation. There is minimal degenerative arthrosis of the acromioclavicular joint without inferior osseous spur formation. Normal acromion. There is demineralization of the humerus and visualized osseous structures. The soft tissue structures are unremarkable. Normal visualized pulmonary apex. RAD/Shoulder min 2 Views IMPRESSION: Bony demineralization. No visualized fracture. Minimal degenerative change. Electronically Signed: Sunni Arango MD at 2:35 EDT Tel , Service support ,
[2020-01-13 15:36] LABS: Absolute Lymphocyte Count 1.39 X10^3/uL (0.83-4.51); Absolute Neutrophil Count 3.7 X10^3/uL (2.0-7.7); Basophil# 0.04 X10^3/uL; Basophil% 0.7 % (0-1); Eosinophil# 0.25 X10^3/uL; Eosinophils% 4.2 % (0-5); Hematocrit 39.1 % (37-47); Hemoglobin 12.4 g/dL (12.0-15.0); Lymphocyte # 1.39 X10^3/ul (4.0); Lymphocyte % 23.3 % (19-41); Mean Corp Hgb Conc 31.7 g/dL (32-36); Mean Corpuscular Hgb 29.7 pg (27.0-32.0); Mean Corpuscular Volume 93.5 fL (81-99); Monocyte# 0.54 X10^3/uL; NRBC Flagged by Analyzer 0 % (0-5); Neutrophil # 3.73 X10^3/uL (2.7-7.7); Neutrophil % 62.5 % (47-70); Platelet Count 244 K/mm3 (150-450); RBC Distribution Width CV 13.2 % (11.6-14.6); RBC Distribution Width SD 45.1 fl (35.1-43.9); Red Blood Count 4.18 M/mm3 (4.2-5.4)
[2020-01-13 15:54] LABS: Protein, Urine (Random) < 6.0 mg/dL (<11.9)
[2020-01-13 16:07] LABS: ALB/GLOB Ratio 1.1 RATIO (0.9-2.4); AST(SGOT) 18 U/L (15-37); Alanine Aminotransfer ALT/SGPT 21 U/L (13-56); Albumin, Serum 3.8 g/dL (3.2-5.0); Alkaline Phosphatase 85 U/L (45-117); Anion Gap 4 (5-15); BUN 13 mg/dL (7-18); BUN/Creat Ratio 9.2 RATIO (10-20); Calcium,Total 10.1 mg/dL (8.5-10.1); Chloride 109 mmol/L (98-107); Creatinine, Serum 1.41 mg/dL (0.55-1.02); EST Glomerular Filtration Rate 39 mL/min (>60); Est Glom Filt Rate - Afr Amer 47 mL/min (>60); Globulin 3.6 g/dL (2.2-4.2); Glucose 93 mg/dL (74-106); Potassium 4.2 mmol/L (3.5-5.1); Protein, Total 7.4 g/dL (6.4-8.2); Sodium Level 142 mmol/L (136-145); Vitamin D,25 Hydroxy 34.6 ng/mL
== END ==
PROVIDERS: PCP Family Medicine; Referring Provider Family Medicine; Visit Provider Family Medicine
DX: M25.512 Pain in left shoulder (principal); I12.9 Hypertensive chronic kidney disease with stage 1 through stage 4 chronic kidney disease, or unspecified chronic kidney disease; N18.3 Chronic kidney disease, stage 3 (moderate); E55.9 Vitamin D deficiency, unspecified
CPT/HCPCS: 36415; 73030; 80053; 82306; 82570; 84156; 85025

== ENCOUNTER → 2020-01-29 15:53 | Outpatient (CLI) | payer MEDICARE, SELFPAY ==
[2020-01-29 19:11] LABS: Vitamin B12 530 pg/mL (211-911)
[2020-02-03 03:19] LABS: Vitamin B1, Thiamine 174.3 nmol/L (66.5-200.0)
== END ==
PROVIDERS: PCP Family Medicine; Visit Provider Family Medicine
DX: Q38.2 Macroglossia (principal)
CPT/HCPCS: 82607; 84100; 84425

== ENCOUNTER 2020-02-17 11:00 | Outpatient (RCR) | payer MEDICARE, SELFPAY ==
--- NOTE | 2020-01-15 15:17 | HP.PTEVAL_ITS ---
Patient's Visit Information HAYDEE STRAUSS is a 74 year old F referred to Physical Therapy by Dr. Don Madsen MD with a diagnosis of L shoulder pain. Date of Evaluation: 01/15/20 Physical Therapist: Logan Navarro, PT, NIMESH, SCS, CSCS - Visit Plan Frequency: 2x /Week Duration: 4 Weeks Plan: See patient 2xweek for 2 weeks if she is no better than perhaps and MRi to rule out a rotator cuff tear or injection. We did disuss that many RCT we can strenthen and get by without sx. Mrs Strauss lives along as her just . - Subjective PT states that approximately 3 weeks ago she was walking up her step and tripped and fell on an outstretched arm. She sought hte help of Dr Shea who referred her to our care. She is having difficulty raising her left arm, hooking on bra and several other adl's. - Pain Left Shoulder Pain Intensity (Out of 10): 2 Pain Intensity Range: 2, 6 - Objective Mrs Strauss presents with tenderness to palapation at the insertion fo the supraspinatus, she has a small amount of brusinig in that area. PROM is essentially Full 175+ shd flexion, 165+ abd. 55 ext intT 6 & 7. MMT R 19/21 ext/int L 2.5/21. Crepitus noted with Flexion and overpressure. Active shoulder flexion to 80 on L side. - Goals Goal 1:: Understand the anatomy and what is wrong with her shoulder Goal Time Frame: 1 Week Goal 2:: Initiate a light strenthening program to help raise arm arm her head Goal Time Frame: 4-6 Weeks - Rehabilitation Potential Physical Therapy Diagnosis: L Rotator cuff tear. Rehabilitation Potential: Good - Anticipated Interventions Patient/Client Instruction: Educate patient on: Condition, Plan of Care, Benefits of Fitness Program For the Purpose of:: To decrease pain, To increase ROM, To improve ability to perform ADL's Therapeutic Exercise to Include: Strength training For the Purpose of:: To decrease pain, To decrease swelling/inflammation, To increase ROM, To improve ability to perform ADL's Functional electric stimulation: Yes Ultrasound (thermal/non thermal): Yes For the Purpose of:: To decrease pain, To decrease swelling/inflammation, To increase ROM, To improve ability to perform ADL's Thank you for the opportunity to evaluate your patient. For Medicare and Medicare HMO plans, please review the plan of care and approve it. It will need to be FAXED BACK to us at [phone] for Medicare purposes. For Medicare only, by signing this I certify the plan of care. Please let me know if there are questions or concerns regarding this plan of care. Physician Signatur e: Date:
--- NOTE | 2020-02-17 11:44 | HP.PTDCSUM ---
It has been my pleasure to treat HAYDEE STRAUSS referred by Dr. Don Madsen MD, with the diagnosis of L shoulder pain for a total of 9 visit(s). Discharge Date: 02/17/20 Please see the following information for a summary of their discharge status. Subjective: My dog is not doing well so I'm a little grumpy. I happy with my progress I can rasie my arm again. Left Shoulder Pain Intensity (Out of 10): 0 % Improvement: 75 Objective/Function: MMT. L 11.9/23.2. R . Able to actively raise arm to 170+ shoulder flexion and 170 abduction Goal 1:: Understand the anatomy and what is wrong with her shoulder Goal Progress: Goal Met Goal 2:: Initiate a light strenthening program to help raise arm arm her head Goal Progress: Goal Met Plan: discharge to [facility] wick reviewed HEP will continue to check on her progress. I'm concerned with her memory which I let her duaghter in law know. Discharge Comments: Appreciate referral. If there are questions or concerns regarding this patient's physical therapy, please feel free to call me at [phone]. Thank you for the referral of this patient. Sincerely, Logan Navarro, PT, NIMESH, SCS, CSCS
== END 2020-02-17 12:49 | disposition home or self-care (01) ==
LOC: PT 11:00
PROVIDERS: PCP Family Medicine; Referring Provider Family Medicine; Visit Provider Family Medicine
DX: M25.512 Pain in left shoulder (principal)
CPT/HCPCS: 97014; 97035; 97110; 97161; G0283

== ENCOUNTER → 2020-07-14 10:39 | Outpatient (CLI) | payer MEDICARE, SELFPAY ==
[2020-07-14 10:43] LABS: Bacteria 0 SEEN /hpf (None Seen); Mucous, Urine 0 SEEN /hpf (<or=2+)
[2020-07-14 12:21] LABS: Absolute Lymphocyte Count 1.25 X10^3/uL (0.83-4.51); Basophil# 0.04 X10^3/uL; Basophil% 0.8 % (0-1); Color, Urine Yellow (Yellow); Eosinophil# 0.09 X10^3/uL; Eosinophils% 1.9 % (0-5); Glucose, Dipstick Normal (Normal); Hematocrit 41.4 % (37-47); Hemoglobin 13.1 g/dL (12.0-15.0); Ketone-Dipstick Negative (Negative); Leukocyte Esterase-Dipstick 500 /ul (Negative); Lymphocyte # 1.25 X10^3/ul (4.0); Lymphocyte % 25.9 % (19-41); Mean Corp Hgb Conc 31.6 g/dL (32-36); Mean Corpuscular Hgb 29.6 pg (27.0-32.0); Mean Corpuscular Volume 93.7 fL (81-99); Mean Platelet Vol. 10.5 fl (6.2-12.0); Monocyte# 0.42 X10^3/uL; Monocyte% 8.7 % (0-10); NRBC Flagged by Analyzer 0 % (0-5); Neutrophil % 62.3 % (47-70); Nitrite-Dipstick Negative (Negative); Occult Blood-Urine 10 /ul (Negative); Platelet Count 243 K/mm3 (150-450); Protein-Dipstick Negative (Negative); RBC Distribution Width CV 12.7 % (11.6-14.6); RBC Distribution Width SD 43.8 fl (35.1-43.9); Red Blood Count 4.42 M/mm3 (4.2-5.4); Specific Gravity, Urine 1.015 (1.002-1.030); Urine Bilirubin Dipstick Negative (Negative); Urine Clarity Clear (Clear); Urine Urobilinogen Normal (Normal); White Blood Count 4.8 K/mm3 (4.4-11.0)
[2020-07-14 12:31] LABS: PTHIN 33.8 pg/mL (18.4-80.1)
[2020-07-14 12:35] LABS: Vitamin D,25 Hydroxy 47.6 ng/mL
[2020-07-14 12:39] LABS: Protein, Urine (Random) 7.9 mg/dL (<11.9); Protein:Creat Ratio 84 mg/g CRE (0-200)
[2020-07-14 12:57] LABS: AST(SGOT) 16 U/L (15-37); Alanine Aminotransfer ALT/SGPT 20 U/L (13-56); Albumin, Serum 3.6 g/dL (3.2-5.0); Alkaline Phosphatase 81 U/L (45-117); Anion Gap 4 (5-15); BUN 17 mg/dL (7-18); BUN/Creat Ratio 12.1 RATIO (10-20); Calcium,Total 9.7 mg/dL (8.5-10.1); Chloride 109 mmol/L (98-107); EST Glomerular Filtration Rate 39 mL/min (>60); Est Glom Filt Rate - Afr Amer 47 mL/min (>60); Globulin 3.7 g/dL (2.2-4.2); Glucose 90 mg/dL (74-106); Phosphorus 3.4 mg/dL (2.5-4.9); Protein, Total 7.3 g/dL (6.4-8.2); Sodium Level 139 mmol/L (136-145)
[2020-07-14 13:03] LABS: Squamous Epithelial Cells - UA 0-5 SEEN /hpf (5-10); Transitional Epithelial - Ur 0-5 SEEN /hpf (0-5)
[2020-07-14 13:05] LABS: Red Blood Cells-Urine 0-5 SEEN /hpf (0-5); White Blood Cells 0-5 SEEN /hpf (0-5)
== END ==
PROVIDERS: PCP Family Medicine; Referring Provider Family Medicine; Visit Provider Family Medicine
DX: N18.30 Chronic kidney disease, stage 3 unspecified (principal); M81.0 Age-related osteoporosis without current pathological fracture; E55.9 Vitamin D deficiency, unspecified
CPT/HCPCS: 36415; 80053; 81001; 82306; 82570; 83970; 84100; 84156; 85025

== ENCOUNTER → 2020-08-16 | Outpatient (CLI) | payer MEDICARE, SELFPAY ==
[2020-08-16 13:39] LABS: Bacteria 0 SEEN /hpf (None Seen); Mucous, Urine 0 SEEN /hpf (<or=2+); Red Blood Cells-Urine 0 SEEN /hpf (0-5)
[2020-08-16 15:21] LABS: Color, Urine Yellow (Yellow); Glucose, Dipstick Normal (Normal); Ketone-Dipstick Negative (Negative); Leukocyte Esterase-Dipstick 100 /ul (Negative); Nitrite-Dipstick Negative (Negative); Occult Blood-Urine Negative /ul (Negative); Protein-Dipstick Negative (Negative); Urine Bilirubin Dipstick Negative (Negative); Urine Clarity Clear (Clear); Urine Urobilinogen Normal (Normal)
[2020-08-16 16:10] LABS: Squamous Epithelial Cells - UA 0-5 SEEN /hpf (5-10); White Blood Cells 5-10 SEEN /hpf (0-5)
== END | disposition home or self-care (01) ==
LOC: LABSPEC 13:38
PROVIDERS: PCP Family Medicine; Referring Provider Family Medicine; Visit Provider Family Medicine
DX: N18.30 Chronic kidney disease, stage 3 unspecified (principal)
CPT/HCPCS: 81001

== ENCOUNTER → 2020-08-18 14:34 | Outpatient (CLI) | payer MEDICARE, SELFPAY ==
[2020-08-18 18:22] LABS: Anion Gap 7 (5-15); BUN 12 mg/dL (7-18); BUN/Creat Ratio 9.2 RATIO (10-20); Calcium,Total 9.3 mg/dL (8.5-10.1); Chloride 105 mmol/L (98-107); Creatinine, Serum 1.31 mg/dL (0.55-1.02); EST Glomerular Filtration Rate 42 mL/min (>60); Est Glom Filt Rate - Afr Amer 51 mL/min (>60); Glucose 116 mg/dL (74-106); Potassium 3.7 mmol/L (3.5-5.1); Sodium Level 138 mmol/L (136-145)
== END ==
PROVIDERS: PCP Family Medicine; Referring Provider Family Medicine; Visit Provider Family Medicine
DX: N18.30 Chronic kidney disease, stage 3 unspecified (principal)
CPT/HCPCS: 36415; 80048

== ENCOUNTER → 2020-12-13 08:35 | Outpatient (CLI) | payer MEDICARE, SELFPAY ==
[2020-12-13 10:12] LABS: Absolute Lymphocyte Count 1.43 X10^3/uL (0.83-4.51); Absolute Neutrophil Count 2.7 X10^3/uL (2.0-7.7); Basophil# 0.03 X10^3/uL; Basophil% 0.6 % (0-1); Eosinophil# 0.14 X10^3/uL; Eosinophils% 2.9 % (0-5); Hematocrit 40.3 % (37-47); Hemoglobin 12.8 g/dL (12.0-15.0); Lymphocyte # 1.43 X10^3/ul (0.83-4.51); Mean Corp Hgb Conc 31.8 g/dL (32-36); Mean Corpuscular Hgb 29.6 pg (27.0-32.0); Mean Corpuscular Volume 93.1 fL (81-99); Mean Platelet Vol. 11.7 fl (6.2-12.0); Monocyte# 0.41 X10^3/uL; Monocyte% 8.6 % (0-10); NRBC Flagged by Analyzer 0 % (0-5); Neutrophil # 2.73 X10^3/uL (2.7-7.7); Neutrophil % 57.5 % (47-70); POSITIVE COUNT YES; Platelet Count 178 K/mm3 (150-450); RBC Distribution Width CV 12.8 % (11.6-14.6); RBC Distribution Width SD 43.7 fl (35.1-43.9); Red Blood Count 4.33 M/mm3 (4.2-5.4); White Blood Count 4.8 K/mm3 (4.4-11.0)
[2020-12-13 10:14] LABS: Differential Indicated SCAN CRITERIA MET
[2020-12-13 10:32] LABS: Platelet Estimate ADEQUATE (ADEQ); Platelet Morphology CLUMPED
[2020-12-13 10:38] LABS: Protein, Urine (Random) < 6.0 mg/dL (<11.9)
[2020-12-13 10:48] LABS: AST(SGOT) 19 U/L (15-37); Alanine Aminotransfer ALT/SGPT 21 U/L (13-56); Albumin, Serum 3.6 g/dL (3.2-5.0); Alkaline Phosphatase 78 U/L (45-117); Anion Gap 3 (5-15); BUN 14 mg/dL (7-18); BUN/Creat Ratio 10.5 RATIO (10-20); Calcium,Total 9.2 mg/dL (8.5-10.1); Chloride 109 mmol/L (98-107); Creatinine, Serum 1.33 mg/dL (0.55-1.02); EST Glomerular Filtration Rate 41 mL/min (>60); Est Glom Filt Rate - Afr Amer 50 mL/min (>60); Globulin 3.6 g/dL (2.2-4.2); Glucose 91 mg/dL (74-106); Potassium 4.1 mmol/L (3.5-5.1); Protein, Total 7.2 g/dL (6.4-8.2); Sodium Level 139 mmol/L (136-145)
[2020-12-13 11:56] LABS: PTHIN 34.1 pg/mL (18.4-80.1)
[2020-12-13 11:58] LABS: Vitamin D,25 Hydroxy 48.4 ng/mL
== END ==
PROVIDERS: PCP Family Medicine; Referring Provider Family Medicine; Visit Provider Family Medicine
DX: I12.9 Hypertensive chronic kidney disease with stage 1 through stage 4 chronic kidney disease, or unspecified chronic kidney disease (principal); N18.30 Chronic kidney disease, stage 3 unspecified; E55.9 Vitamin D deficiency, unspecified
CPT/HCPCS: 36415; 80053; 82306; 82570; 83970; 84156; 85025

== ENCOUNTER → 2021-04-14 08:30 | Outpatient (CLI) | payer MEDICARE, SELFPAY ==
[2021-04-14 10:23] LABS: Absolute Lymphocyte Count 1.29 X10^3/uL (0.83-4.51); Absolute Neutrophil Count 4.2 X10^3/uL (2.0-7.7); Basophil# 0.04 X10^3/uL; Basophil% 0.6 % (0-1); Eosinophil# 0.15 X10^3/uL; Eosinophils% 2.4 % (0-5); Hematocrit 39.8 % (37-47); Hemoglobin 12.7 g/dL (12.0-15.0); Lymphocyte # 1.29 X10^3/ul (0.83-4.51); Lymphocyte % 20.6 % (19-41); Mean Corp Hgb Conc 31.9 g/dL (32-36); Mean Corpuscular Hgb 29.4 pg (27.0-32.0); Mean Corpuscular Volume 92.1 fL (81-99); Mean Platelet Vol. 10.7 fl (6.2-12.0); Monocyte# 0.54 X10^3/uL; Monocyte% 8.6 % (0-10); NRBC Flagged by Analyzer 0 % (0-5); Neutrophil # 4.22 X10^3/uL (2.7-7.7); Neutrophil % 67.5 % (47-70); Platelet Count 221 K/mm3 (150-450); RBC Distribution Width CV 12.8 % (11.6-14.6); RBC Distribution Width SD 43.2 fl (35.1-43.9); Red Blood Count 4.32 M/mm3 (4.2-5.4); White Blood Count 6.3 K/mm3 (4.4-11.0)
[2021-04-14 11:01] LABS: Vitamin D,25 Hydroxy 57.2 ng/mL
[2021-04-14 11:11] LABS: ALB/GLOB Ratio 0.8 RATIO (0.9-2.4); AST(SGOT) 19 U/L (15-37); Alanine Aminotransfer ALT/SGPT 23 U/L (13-56); Albumin, Serum 3.4 g/dL (3.2-5.0); Alkaline Phosphatase 81 U/L (45-117); Anion Gap 5 (5-15); BUN 10 mg/dL (7-18); BUN/Creat Ratio 7.2 RATIO (10-20); Calcium,Total 9.3 mg/dL (8.5-10.1); Chloride 108 mmol/L (98-107); Cholesterol 212 mg/dL (200); Creatinine, Serum 1.38 mg/dL (0.55-1.02); EST Glomerular Filtration Rate 39 mL/min (>60); Est Glom Filt Rate - Afr Amer 48 mL/min (>60); Glucose 93 mg/dL (74-106); High Density Lipoprotein 66 mg/dL; Potassium 4.1 mmol/L (3.5-5.1); Protein, Total 7.4 g/dL (6.4-8.2); Sodium Level 139 mmol/L (136-145); Thyroid Stim Hormone (TSH) 1.09 uIU/mL (0.358-3.74); Triglycerides 132 mg/dL; Very Low Density Lipoprotein 26 mg/dL (5-40)
== END ==
PROVIDERS: PCP Family Medicine; Referring Provider Family Medicine; Visit Provider Family Medicine
DX: I10 Essential (primary) hypertension (principal); E55.9 Vitamin D deficiency, unspecified
CPT/HCPCS: 36415; 80053; 80061; 82306; 84443; 85025

== ENCOUNTER → 2021-05-05 17:02 | Outpatient (CLI) | payer MEDICARE, SELFPAY ==
--- NOTE | 2021-05-05 17:05 | RAD_ITS ---
STUDY: X-RAY CHEST REASON FOR EXAM: Female, 76 years old. ACUTE BRONCHITIS TECHNIQUE: PA and lateral views of the chest. COMPARISON: None. FINDINGS: Scattered reticular opacities of the lung bases. No dense airspace consolidation. There is no demonstrated pleural abnormality. Normal size heart. Normal mediastinum and lora. Normal visualized pulmonary arteries. There is atherosclerotic calcification of the aortic arch with tortuosity. There are diffuse degenerative changes of the visualized thoracic spine. Normal visualized ribs, clavicles, and shoulders. There is no demonstrated abnormality of the visualized soft tissue structures of the upper abdomen. RAD/Chest PA and Lateral IMPRESSION: Bibasilar fibrotic scarring versus atelectasis. No comparison study. Electronically Signed: Dave Stephenson MD ([place]) at 16:54 EDT , Service support ,
== END ==
PROVIDERS: PCP Family Medicine; Referring Provider Family Medicine; Visit Provider Family Medicine
DX: U07.1 COVID-19 (principal); J20.8 Acute bronchitis due to other specified organisms
CPT/HCPCS: 71046; 87635; U0005; U0003

== ENCOUNTER → 2021-05-23 15:18 | Outpatient (CLI) | payer MEDICARE, SELFPAY ==
[2021-05-23 18:13] LABS: Anion Gap 7 (5-15); BUN 7 mg/dL (7-18); BUN/Creat Ratio 5.7 RATIO (10-20); Calcium,Total 9.9 mg/dL (8.5-10.1); Chloride 102 mmol/L (98-107); Creatinine, Serum 1.23 mg/dL (0.55-1.02); EST Glomerular Filtration Rate 45 mL/min (>60); Est Glom Filt Rate - Afr Amer 54 mL/min (>60); Glucose 139 mg/dL (74-106); Potassium 4.1 mmol/L (3.5-5.1); Sodium Level 138 mmol/L (136-145)
== END ==
PROVIDERS: PCP Family Medicine; Referring Provider Family Medicine; Visit Provider Family Medicine
DX: N18.30 Chronic kidney disease, stage 3 unspecified (principal)
CPT/HCPCS: 36415; 80048

== ENCOUNTER 2021-08-14 08:34 | Outpatient (CLI) | payer MEDICARE, SELFPAY ==
[2021-08-14 08:37] LABS: Bacteria 0 SEEN /hpf (None Seen); Mucous, Urine 0 SEEN /hpf (<or=2+); Red Blood Cells-Urine 0 SEEN /hpf (0-5)
[2021-08-14 10:15] LABS: Absolute Lymphocyte Count 1.15 X10^3/uL (0.83-4.51); Absolute Neutrophil Count 4.3 X10^3/uL (2.0-7.7); Basophil# 0.04 X10^3/uL; Basophil% 0.7 % (0-1); Eosinophil# 0.12 X10^3/uL; Hematocrit 38.9 % (37-47); Hemoglobin 12.2 g/dL (12.0-15.0); Lymphocyte # 1.15 X10^3/ul (0.83-4.51); Lymphocyte % 18.8 % (19-41); Mean Corp Hgb Conc 31.4 g/dL (32-36); Mean Corpuscular Hgb 28.4 pg (27.0-32.0); Mean Corpuscular Volume 90.7 fL (81-99); Mean Platelet Vol. 10.4 fl (6.2-12.0); Monocyte# 0.53 X10^3/uL; Monocyte% 8.6 % (0-10); NRBC Flagged by Analyzer 0 % (0-5); Neutrophil # 4.27 X10^3/uL (2.7-7.7); Neutrophil % 69.6 % (47-70); Platelet Count 247 K/mm3 (150-450); RBC Distribution Width CV 13.2 % (11.6-14.6); RBC Distribution Width SD 43.7 fl (35.1-43.9); Red Blood Count 4.29 M/mm3 (4.2-5.4); White Blood Count 6.1 K/mm3 (4.4-11.0)
[2021-08-14 10:44] LABS: Vitamin B12 1414 pg/mL (211-911)
[2021-08-14 10:44] LABS: Vitamin D,25 Hydroxy 49.3 ng/mL
[2021-08-14 10:51] LABS: ALB/GLOB Ratio 0.8 RATIO (0.9-2.4); AST(SGOT) 15 U/L (15-37); Alanine Aminotransfer ALT/SGPT 21 U/L (13-56); Albumin, Serum 3.3 g/dL (3.2-5.0); Alkaline Phosphatase 80 U/L (45-117); Anion Gap 8 (5-15); BUN 9 mg/dL (7-18); BUN/Creat Ratio 7.8 RATIO (10-20); Calcium,Total 9.6 mg/dL (8.5-10.1); Chloride 105 mmol/L (98-107); Creatinine, Serum 1.15 mg/dL (0.55-1.02); EST Glomerular Filtration Rate 48 mL/min (>60); Est Glom Filt Rate - Afr Amer 59 mL/min (>60); Globulin 4.3 g/dL (2.2-4.2); Glucose 91 mg/dL (74-106); Phosphorus 3.2 mg/dL (2.5-4.9); Potassium 3.6 mmol/L (3.5-5.1); Protein, Total 7.6 g/dL (6.4-8.2); Sodium Level 138 mmol/L (136-145)
[2021-08-14 11:05] LABS: Thyroid Stim Hormone (TSH) 1.37 uIU/mL (0.358-3.74)
[2021-08-14 12:22] LABS: Color, Urine Yellow (Yellow); Glucose, Dipstick Normal (Normal); Ketone-Dipstick Negative (Negative); Leukocyte Esterase-Dipstick 25 /ul (Negative); Nitrite-Dipstick Negative (Negative); Occult Blood-Urine Negative /ul (Negative); Protein-Dipstick Negative (Negative); Specific Gravity, Urine 1.015 (1.002-1.030); Urine Bilirubin Dipstick Negative (Negative); Urine Clarity Sl. Cloudy (Clear); Urine Urobilinogen Normal (Normal)
[2021-08-14 12:32] LABS: Squamous Epithelial Cells - UA 0-5 SEEN /hpf (5-10); White Blood Cells 0-5 SEEN /hpf (0-5)
[2021-08-14 13:02] LABS: Protein, Urine (Random) 11.7 mg/dL (<11.9); Protein:Creat Ratio 59 mg/g CRE (0-200)
== END 2021-08-14 23:59 | disposition short-term general hospital (02) ==
LOC: MFPLAB 08:35
PROVIDERS: PCP Family Medicine; Visit Provider Family Medicine
DX: I12.9 Hypertensive chronic kidney disease with stage 1 through stage 4 chronic kidney disease, or unspecified chronic kidney disease (principal); N18.30 Chronic kidney disease, stage 3 unspecified; E55.9 Vitamin D deficiency, unspecified; R41.3 Other amnesia
CPT/HCPCS: 36415; 80053; 81001; 82306; 82570; 82607; 84100; 84156; 84443; 85025

== ENCOUNTER → 2021-12-29 | Outpatient (CLI) | payer MEDICARE, SELFPAY ==
[2021-12-29 10:10] LABS: Bacteria 0 SEEN /hpf (None Seen); Mucous, Urine 0 SEEN /hpf (<or=2+); Red Blood Cells-Urine 0 SEEN /hpf (0-5); Squamous Epithelial Cells - UA 0 SEEN /hpf (5-10); White Blood Cells 0 SEEN /hpf (0-5)
[2021-12-29 12:20] LABS: Absolute Lymphocyte Count 1.36 X10^3/uL (0.83-4.51); Absolute Neutrophil Count 3.1 X10^3/uL (2.0-7.7); Basophil# 0.06 X10^3/uL; Basophil% 1.2 % (0-1); Color, Urine Yellow (Yellow); Eosinophil# 0.13 X10^3/uL; Eosinophils% 2.5 % (0-5); Glucose, Dipstick Normal (Normal); Hematocrit 40.3 % (37-47); Hemoglobin 12.9 g/dL (12.0-15.0); Ketone-Dipstick Negative (Negative); Leukocyte Esterase-Dipstick 25 /ul (Negative); Lymphocyte # 1.36 X10^3/ul (0.83-4.51); Lymphocyte % 26.5 % (19-41); Mean Corpuscular Hgb 29.9 pg (27.0-32.0); Mean Corpuscular Volume 93.3 fL (81-99); Mean Platelet Vol. 10.7 fl (6.2-12.0); Monocyte# 0.45 X10^3/uL; Monocyte% 8.8 % (0-10); NRBC Flagged by Analyzer 0 % (0-5); Neutrophil # 3.12 X10^3/uL (2.7-7.7); Neutrophil % 60.6 % (47-70); Nitrite-Dipstick Negative (Negative); Occult Blood-Urine Negative /ul (Negative); Platelet Count 218 K/mm3 (150-450); Protein-Dipstick Negative (Negative); RBC Distribution Width CV 13.5 % (11.6-14.6); RBC Distribution Width SD 46.2 fl (35.1-43.9); Red Blood Count 4.32 M/mm3 (4.2-5.4); Urine Bilirubin Dipstick Negative (Negative); Urine Clarity Clear (Clear); Urine Urobilinogen Normal (Normal); White Blood Count 5.1 K/mm3 (4.4-11.0)
[2021-12-29 12:27] LABS: Protein, Urine (Random) 9.1 mg/dL (<11.9); Protein:Creat Ratio 115 mg/g CRE (0-200)
[2021-12-29 12:38] LABS: PTHIN 45.6 pg/mL (18.4-80.1)
[2021-12-29 12:39] LABS: Vitamin D,25 Hydroxy 41.2 ng/mL
[2021-12-29 12:59] LABS: ALB/GLOB Ratio 0.8 RATIO (0.9-2.4); AST(SGOT) 20 U/L (15-37); Alanine Aminotransfer ALT/SGPT 19 U/L (13-56); Albumin, Serum 3.4 g/dL (3.2-5.0); Alkaline Phosphatase 88 U/L (45-117); Anion Gap 5 (5-15); BUN 13 mg/dL (7-18); BUN/Creat Ratio 10.1 RATIO (10-20); Calcium,Total 9.4 mg/dL (8.5-10.1); Chloride 109 mmol/L (98-107); Cholesterol 234 mg/dL (200); Creatinine, Serum 1.29 mg/dL (0.55-1.02); EST Glomerular Filtration Rate 42 mL/min (>60); Est Glom Filt Rate - Afr Amer 51 mL/min (>60); Glucose 87 mg/dL (74-106); High Density Lipoprotein 64 mg/dL; Phosphorus 2.9 mg/dL (2.5-4.9); Potassium 4.1 mmol/L (3.5-5.1); Protein, Total 7.4 g/dL (6.4-8.2); Sodium Level 140 mmol/L (136-145); Thyroid Stim Hormone (TSH) 1.21 uIU/mL (0.358-3.74); Triglycerides 143 mg/dL; Very Low Density Lipoprotein 29 mg/dL (5-40)
== END | disposition home or self-care (01) ==
LOC: MFPLAB 10:00
PROVIDERS: PCP Family Medicine; Referring Provider Family Medicine; Visit Provider Family Medicine
DX: I12.9 Hypertensive chronic kidney disease with stage 1 through stage 4 chronic kidney disease, or unspecified chronic kidney disease (principal); N18.30 Chronic kidney disease, stage 3 unspecified; E55.9 Vitamin D deficiency, unspecified
CPT/HCPCS: 36415; 80053; 80061; 81001; 82306; 82570; 83970; 84100; 84156; 84443; 85025

== ENCOUNTER → 2022-05-21 | Outpatient (CLI) | payer MEDICARE, SELFPAY ==
[2022-05-21 10:21] LABS: Absolute Lymphocyte Count 1.01 X10^3/uL (0.83-4.51); Absolute Neutrophil Count 4.1 X10^3/uL (2.0-7.7); Basophil# 0.04 X10^3/uL; Basophil% 0.7 % (0-1); Eosinophil# 0.13 X10^3/uL; Eosinophils% 2.2 % (0-5); Hematocrit 39.7 % (37-47); Hemoglobin 12.7 g/dL (12.0-15.0); Lymphocyte # 1.01 X10^3/ul (0.83-4.51); Lymphocyte % 17.5 % (19-41); Mean Corpuscular Hgb 30.2 pg (27.0-32.0); Mean Corpuscular Volume 94.3 fL (81-99); Mean Platelet Vol. 10.8 fl (6.2-12.0); Monocyte# 0.49 X10^3/uL; Monocyte% 8.5 % (0-10); NRBC Flagged by Analyzer 0 % (0-5); Neutrophil # 4.09 X10^3/uL (2.7-7.7); Neutrophil % 70.8 % (47-70); Platelet Count 213 K/mm3 (150-450); RBC Distribution Width CV 13.1 % (11.6-14.6); RBC Distribution Width SD 44.9 fl (35.1-43.9); Red Blood Count 4.21 M/mm3 (4.2-5.4); White Blood Count 5.8 K/mm3 (4.4-11.0)
[2022-05-21 10:45] LABS: Bacteria 0 SEEN /hpf (None Seen); Mucous, Urine 0 SEEN /hpf (<or=2+); Red Blood Cells-Urine 0 SEEN /hpf (0-5)
[2022-05-21 11:06] LABS: PTHIN 47.9 pg/mL (18.4-80.1)
[2022-05-21 11:07] LABS: ALB/GLOB Ratio 0.9 RATIO (0.9-2.4); AST(SGOT) 17 U/L (15-37); Alanine Aminotransfer ALT/SGPT 19 U/L (13-56); Albumin, Serum 3.4 g/dL (3.2-5.0); Alkaline Phosphatase 72 U/L (45-117); Anion Gap 6 (5-15); BUN 15 mg/dL (7-18); BUN/Creat Ratio 12.1 RATIO (10-20); Calcium,Total 9.4 mg/dL (8.5-10.1); Chloride 108 mmol/L (98-107); Cholesterol 205 mg/dL (200); Creatinine, Serum 1.24 mg/dL (0.55-1.02); EST Glomerular Filtration Rate 44 mL/min (>60); Est Glom Filt Rate - Afr Amer 54 mL/min (>60); Globulin 3.8 g/dL (2.2-4.2); Glucose 91 mg/dL (74-106); High Density Lipoprotein 60 mg/dL; Phosphorus 2.9 mg/dL (2.5-4.9); Potassium 4.2 mmol/L (3.5-5.1); Protein, Total 7.2 g/dL (6.4-8.2); Sodium Level 141 mmol/L (136-145); Thyroid Stim Hormone (TSH) 1.24 uIU/mL (0.358-3.74); Triglycerides 140 mg/dL; Very Low Density Lipoprotein 28 mg/dL (5-40)
[2022-05-21 11:10] LABS: Vitamin D,25 Hydroxy 47.6 ng/mL
[2022-05-21 12:13] LABS: Color, Urine Yellow (Yellow); Glucose, Dipstick Normal (Normal); Ketone-Dipstick Negative (Negative); Leukocyte Esterase-Dipstick 25 /ul (Negative); Nitrite-Dipstick Negative (Negative); Occult Blood-Urine Negative /ul (Negative); Protein-Dipstick Negative (Negative); Urine Bilirubin Dipstick Negative (Negative); Urine Clarity Clear (Clear); Urine Urobilinogen Normal (Normal); Urine pH 6.5 (5.0 - 8.0)
[2022-05-21 12:25] LABS: Squamous Epithelial Cells - UA 0-5 SEEN /hpf (5-10); White Blood Cells 0-5 SEEN /hpf (0-5)
[2022-05-21 12:41] LABS: Protein, Urine (Random) 16.4 mg/dL (<11.9); Protein:Creat Ratio 93 mg/g CRE (0-200)
== END | disposition home or self-care (01) ==
LOC: MFPLAB 09:09
PROVIDERS: PCP Family Medicine; Visit Provider Family Medicine
DX: I12.9 Hypertensive chronic kidney disease with stage 1 through stage 4 chronic kidney disease, or unspecified chronic kidney disease (principal); N18.30 Chronic kidney disease, stage 3 unspecified; E55.9 Vitamin D deficiency, unspecified
CPT/HCPCS: 36415; 80053; 80061; 81001; 82306; 82570; 83970; 84100; 84156; 84443; 85025

== ENCOUNTER → 2022-09-17 | Outpatient (CLI) | payer MEDICARE, SELFPAY ==
[2022-09-17 08:56] LABS: Bacteria 0 SEEN /hpf (None Seen); Mucous, Urine 0 SEEN /hpf (<or=2+); Red Blood Cells-Urine 0 SEEN /hpf (0-5); Squamous Epithelial Cells - UA 0 SEEN /hpf (5-10)
[2022-09-17 10:17] LABS: Absolute Lymphocyte Count 1.39 X10^3/uL (0.83-4.51); Absolute Neutrophil Count 3.3 X10^3/uL (2.0-7.7); Basophil# 0.04 X10^3/uL; Basophil% 0.8 % (0-1); Eosinophils% 1.9 % (0-5); Hematocrit 40.3 % (37-47); Hemoglobin 12.8 g/dL (12.0-15.0); Lymphocyte # 1.39 X10^3/ul (0.83-4.51); Lymphocyte % 26.1 % (19-41); Mean Corp Hgb Conc 31.8 g/dL (32-36); Mean Corpuscular Hgb 29.4 pg (27.0-32.0); Mean Corpuscular Volume 92.6 fL (81-99); Mean Platelet Vol. 10.9 fl (6.2-12.0); Monocyte# 0.51 X10^3/uL; Monocyte% 9.6 % (0-10); NRBC Flagged by Analyzer 0 % (0-5); Neutrophil # 3.27 X10^3/uL (2.7-7.7); Neutrophil % 61.2 % (47-70); Platelet Count 205 K/mm3 (150-450); RBC Distribution Width CV 13.4 % (11.6-14.6); RBC Distribution Width SD 45.2 fl (35.1-43.9); Red Blood Count 4.35 M/mm3 (4.2-5.4); White Blood Count 5.3 K/mm3 (4.4-11.0)
[2022-09-17 10:32] LABS: Color, Urine Yellow (Yellow); Glucose, Dipstick Normal (Normal); Ketone-Dipstick Negative (Negative); Leukocyte Esterase-Dipstick 25 /ul (Negative); Nitrite-Dipstick Negative (Negative); Occult Blood-Urine Negative /ul (Negative); Protein-Dipstick Negative (Negative); Urine Bilirubin Dipstick Negative (Negative); Urine Clarity Sl. Cloudy (Clear); Urine Urobilinogen Normal (Normal)
[2022-09-17 10:43] LABS: White Blood Cells 0-5 SEEN /hpf (0-5)
[2022-09-17 10:46] LABS: PTHIN 55.9 pg/mL (18.4-80.1)
[2022-09-17 10:48] LABS: Vitamin D,25 Hydroxy 55.2 ng/mL
[2022-09-17 10:51] LABS: AST(SGOT) 21 U/L (15-37); Alanine Aminotransfer ALT/SGPT 19 U/L (13-56); Albumin, Serum 3.6 g/dL (3.2-5.0); Alkaline Phosphatase 77 U/L (45-117); Anion Gap 6 (5-15); BUN 11 mg/dL (7-18); BUN/Creat Ratio 8.6 RATIO (10-20); Calcium,Total 9.2 mg/dL (8.5-10.1); Chloride 108 mmol/L (98-107); Creatinine, Serum 1.28 mg/dL (0.55-1.02); EST Glomerular Filtration Rate 43 mL/min (>60); Est Glom Filt Rate - Afr Amer 52 mL/min (>60); Globulin 3.7 g/dL (2.2-4.2); Glucose 90 mg/dL (74-106); Potassium 3.8 mmol/L (3.5-5.1); Protein, Total 7.3 g/dL (6.4-8.2); Sodium Level 140 mmol/L (136-145)
[2022-09-17 10:52] LABS: Protein, Urine (Random) < 6.0 mg/dL (<11.9)
== END | disposition home or self-care (01) ==
PROVIDERS: PCP Family Medicine; Referring Provider Family Medicine; Visit Provider Family Medicine
DX: I12.9 Hypertensive chronic kidney disease with stage 1 through stage 4 chronic kidney disease, or unspecified chronic kidney disease (principal); N18.30 Chronic kidney disease, stage 3 unspecified; E55.9 Vitamin D deficiency, unspecified
CPT/HCPCS: 36415; 80053; 81001; 82306; 82570; 83970; 84156; 85025

== ENCOUNTER → 2023-01-14 | Outpatient (CLI) | payer MEDICARE, SELFPAY ==
[2023-01-14 10:51] LABS: Color, Urine Yellow (Yellow); Glucose, Dipstick Normal (Normal); Ketone-Dipstick Negative (Negative); Leukocyte Esterase-Dipstick 25 /ul (Negative); Nitrite-Dipstick Negative (Negative); Occult Blood-Urine 10 /ul (Negative); Protein-Dipstick 15 mg/dl (Negative); Specific Gravity, Urine 1.015 (1.002-1.030); Urine Bilirubin Dipstick Negative (Negative); Urine Clarity Sl. Cloudy (Clear); Urine Urobilinogen Normal (Normal)
[2023-01-14 10:57] LABS: Bacteria RARE /hpf (None Seen); Mucous, Urine RARE /hpf (<or=2+); Red Blood Cells-Urine 0-5 SEEN /hpf (0-5); Squamous Epithelial Cells - UA 0-5 SEEN /hpf (5-10); White Blood Cells 0-5 SEEN /hpf (0-5)
[2023-01-14 11:01] LABS: Protein, Urine (Random) 21.8 mg/dL (<11.9); Protein:Creat Ratio 112 mg/g CRE (0-200)
[2023-01-14 11:05] LABS: ALB/GLOB Ratio 0.9 RATIO (0.9-2.4); AST(SGOT) 17 U/L (15-37); Alanine Aminotransfer ALT/SGPT 20 U/L (13-56); Albumin, Serum 3.6 g/dL (3.2-5.0); Alkaline Phosphatase 94 U/L (45-117); Anion Gap 5 (5-15); BUN 13 mg/dL (7-18); BUN/Creat Ratio 9.9 RATIO (10-20); Calcium,Total 9.4 mg/dL (8.5-10.1); Chloride 109 mmol/L (98-107); Cholesterol 212 mg/dL (200); Creatinine, Serum 1.31 mg/dL (0.55-1.02); EST Glomerular Filtration Rate 42 mL/min (>60); Est Glom Filt Rate - Afr Amer 50 mL/min (>60); Glucose 93 mg/dL (74-106); High Density Lipoprotein 61 mg/dL; Phosphorus 3.3 mg/dL (2.5-4.9); Potassium 4.7 mmol/L (3.5-5.1); Protein, Total 7.6 g/dL (6.4-8.2); Sodium Level 140 mmol/L (136-145); Triglycerides 114 mg/dL; Very Low Density Lipoprotein 23 mg/dL (5-40); Vitamin D,25 Hydroxy 48.9 ng/mL
[2023-01-14 11:13] LABS: PTHIN 74.5 pg/mL (18.4-80.1)
[2023-01-14 11:17] LABS: Absolute Lymphocyte Count 1.19 X10^3/uL (0.83-4.51); Absolute Neutrophil Count 3.7 X10^3/uL (2.0-7.7); Basophil# 0.05 X10^3/uL; Basophil% 0.9 % (0-1); Eosinophil# 0.16 X10^3/uL; Eosinophils% 2.9 % (0-5); Hemoglobin 13.2 g/dL (12.0-15.0); Lymphocyte # 1.19 X10^3/ul (0.83-4.51); Lymphocyte % 21.6 % (19-41); Mean Corpuscular Hgb 30.3 pg (27.0-32.0); Mean Platelet Vol. 10.9 fl (6.2-12.0); Monocyte# 0.42 X10^3/uL; Monocyte% 7.6 % (0-10); NRBC Flagged by Analyzer 0 % (0-5); Neutrophil # 3.66 X10^3/uL (2.7-7.7); Neutrophil % 66.6 % (47-70); Platelet Count 244 K/mm3 (150-450); RBC Distribution Width CV 12.8 % (11.6-14.6); RBC Distribution Width SD 42.9 fl (35.1-43.9); Red Blood Count 4.35 M/mm3 (4.2-5.4); White Blood Count 5.5 K/mm3 (4.4-11.0)
== END | disposition home or self-care (01) ==
LOC: MTLAB 08:44
PROVIDERS: PCP Family Medicine; Referring Provider Family Medicine; Visit Provider Family Medicine
DX: I12.9 Hypertensive chronic kidney disease with stage 1 through stage 4 chronic kidney disease, or unspecified chronic kidney disease (principal); N18.30 Chronic kidney disease, stage 3 unspecified; M81.0 Age-related osteoporosis without current pathological fracture
CPT/HCPCS: 80053; 80061; 81001; 82306; 82570; 83970; 84100; 84156; 85025

== ENCOUNTER → 2023-01-18 | Outpatient (CLI) | payer MEDICARE, SELFPAY ==
--- NOTE | 2023-01-18 14:25 | RAD_ITS ---
INDICATION: pain, fall on december 31 EXAMINATION/TECHNIQUE: X-RAY - XR Spine Lumbar 2 or 3 Views COMPARISON: Lumbar spine series 03/13/2016. FINDINGS: T12 compression abnormality with approximately 25% vertebral body height loss, of uncertain age but appears increased compared to prior study. Lumbar vertebral bodies are normal in height. Minimal anterior subluxation of L4 on L5 is unchanged. Mild disc space narrowing with osteophytes throughout most levels. Facet arthropathy at the lower levels. No paravertebral soft tissue mass identified. RAD/Lumbar Spine 2 or 3 Views IMPRESSION: T12 compression fracture of uncertain age, with increased height loss compared to prior study from 2015. No evidence of acute fracture or traumatic subluxation the lumbar spine. Degenerative changes with anterolisthesis at L4-5, stable. Electronically Signed: Karen Allison MD at 7:56 EDT ,
== END | disposition home or self-care (01) ==
LOC: MTRAD 14:25
PROVIDERS: PCP Family Medicine; Referring Provider Family Medicine; Visit Provider Family Medicine
DX: M54.50 Low back pain, unspecified (principal)
CPT/HCPCS: 72100

== ENCOUNTER → 2023-01-25 | Outpatient (CLI) | payer MEDICARE, SELFPAY ==
--- NOTE | 2023-01-27 14:41 | STRESSREP ---
Stress Test Report Date: 01/25/2023 Procedure: Exercise tolerance test/imaging study Indications: Chest pain Consent: Per the patient Procedure: The patient exercised on a Schuyler protocol for 4 minutes and 1 second achieving a peak heart rate of 160 bpm (113% predicted maximal heart rate) with a peak blood pressure 198/82 mmHg and a peak MET capacity of 7 METs. The baseline ECG demonstrated normal sinus rhythm, frequent PVCs. The peak exercise ECG demonstrated no significant ischemic changes. EKG during recovery revealed no significant ischemic changes [There were no cardiac dysrhythmias pretest, during exercise, or recovery]. The functional capacity was considered normal for age. There was [no complaint of chest discomfort during exercise or recovery]. The examination was discontinued secondary to dyspnea, achieving target heart rate. Impression: 1. Technically adequate (percent predicted maximal heart rate greater than 85%) exercise tolerance test 2. Stress test is negative for exercise-induced EKG changes of ischemia 3. The test test is negative for exercise-induced chest pain 4. Functional capacity is normal for age 5. Nuclear images pending Myocardial perfusion imaging study: Technique: The patient was injected with 12 mCi of technetium 99m Cardiolite and subsequently rest SPECT Cardiolite nuclear imaging was obtained in the horizontal long, vertical long, and short axis views. The patient exercised on a Schuyler protocol. Please see above for details. The patient was injected with 34.3 mCi of technetium 99m Cardiolite and subsequently stress SPECT Cardiolite nuclear imaging was obtained in the horizontal long, vertical long, and short axis views. A gated Cardiolite study at peak stress was obtained. Interpretation: Rest and stress SPECT Cardiolite nuclear imaging status post realignment, normalization, and attenuation correction, demonstrates overall normal myocardial radioisotope uptake. The gated Cardiolite study demonstrates no significant regional wall motion abnormalities. The reported LVEF is 70%. Impression: 1. There is no evidence of significant ischemia or infarction. 2. The gated Cardiolite study reports an LVEF of 70%. This note was generated with Mobile Road[employer] software. It may contain incorrect words, spelling, and punctuation that were not noted in checking the note before signing.
== END | disposition home or self-care (01) ==
PROVIDERS: PCP Family Medicine; Referring Provider Family Medicine; Visit Provider Family Medicine
DX: R07.9 Chest pain, unspecified (principal)
CPT/HCPCS: 78452; 93017; A9500; A4216

== ENCOUNTER → 2023-02-07 | Outpatient (CLI) | payer MEDICARE, SELFPAY ==
--- NOTE | 2023-02-07 12:59 | BD_ITS ---
STUDY: DUAL ENERGY X-RAY ABSORPTIOMETRY / DXA REASON FOR EXAM: Female, 77 years old. M810 TECHNIQUE: Bone Mineral Density (BMD) measurements of lumbar spine and bilateral hips were obtained. COMPARISON: Comparison is made with prior study dated January 29, 2018. FINDINGS: Lumbar Spine (L1-L4): g/cm2 (0.876) / T-score (-2.0) / Z-score (0.8) Findings are suggestive of osteopenia with a moderate fracture risk. Left Femur Total: g/cm2 (0.756) / T-score (-1.5) / Z-score (0.5) Left Femoral Neck: g/cm2 (0.563) / T-score (-2.6) / Z-score (-0.3) Right Femur Total: g/cm2 (0.698) / T-score (-2.0) / Z-score (0.0) Right Femoral Neck: g/cm2 (0.457) / T-score (-3.5) / Z-score (-1.2) The T-Scores on the most recent prior examination were: Lumbar Spine (L1-L4): There has been worsening of bone density since the previous examination. Left Femur Total: which represents an improvement of 6.3%. Right Femur Total: which represents a worsening of 5.2%. BD/Dexa Bone Density Study IMPRESSION: The patient is considered osteoporotic as outlined below according to World Jew[employer] Organization (WHO) criteria with a high fracture risk. There has been worsening of bone density since the previous examination. Reference Information: The T-score is the number of standard deviations above or below the standard which is normal for young adults at their peak bone mineral density. The World Health Organization (WHO) interprets the T-scores as follows: Above -1 Normal bone density Between -1 and -2.5 Osteopenia Equal to / or below -2.5 Osteoporosis As a practical clinical guideline, osteopenia may be graded as follows: Mild -1 through -1.5 Moderate -1.6 through -2.0 Severe -2.1 through -2.4 The Z-score is the number of standard deviations above or below age-matched controls. A Z-score of less than -1.5 would be considered abnormal. References: 1. NIH Osteoporosis and Related Bone Diseases www osteo.org 2. International Society for Clinical Densitometry www iscd.org 3. National Osteoporosis Foundation www nof.org Electronically Signed: Kevin Milton MD at 13:06 EDT ,
== END | disposition home or self-care (01) ==
LOC: OPBD 12:50
PROVIDERS: PCP Family Medicine; Referring Provider Family Medicine; Visit Provider Family Medicine
DX: M81.0 Age-related osteoporosis without current pathological fracture (principal)
CPT/HCPCS: 77080

== ENCOUNTER → 2023-03-07 | Outpatient (CLI) | payer MEDICARE, SELFPAY ==
--- NOTE | 2023-03-07 16:40 | RAD_ITS ---
INDICATION: pain EXAMINATION/TECHNIQUE: X-RAY - RIGHT XR Hip Unilateral with Pelvis when performed; 2-3 Views 3 VIEWS COMPARISON: Lumbar spine x-rays January 18, 2023. FINDINGS: SOFT TISSUES: No soft tissue swelling or gas. No radiopaque foreign body. BONES/JOINTS: No acute fracture or malalignment. Degenerative endplate changes and facet arthropathy lower lumbar spine. There are chronic degenerative changes, unchanged, sacroiliac joints and symphysis pubis. No sclerotic or destructive changes observed. RAD/HIP, UNI W/ Pelvis 2-3 Views IMPRESSION: No significant degenerative changes of the hip. Mild chronic degenerative changes spine and sacroiliac joints and symphysis pubis. Electronically Signed: Naldo Espinoza DO at 23:53 EDT ,
== END | disposition home or self-care (01) ==
LOC: MTRAD 16:39
PROVIDERS: PCP Family Medicine; Visit Provider Family Medicine
DX: M25.551 Pain in right hip (principal)
CPT/HCPCS: 73502

== ENCOUNTER → 2023-06-14 | Outpatient (CLI) | payer MEDICARE, SELFPAY ==
--- NOTE | 2023-06-14 08:49 | RAD_ITS ---
STUDY: X-RAY - LEFT SHOULDER REASON FOR EXAM: Female, 78 years old. Left shoulder pain. TECHNIQUE: 4 view(s) of the shoulder. COMPARISON: January 13, 2020 FINDINGS: Osteopenia. Mild arthrosis of the glenohumeral joint. Moderate arthrosis of the AC joint. Small subacromial spur. Normal humeral head and visualized proximal humerus. Normal soft tissues. Normal visualized pulmonary apex. RAD/Shoulder min 2 Views IMPRESSION: Stable osteopenia with osteoarthritic changes and small subacromial spur. Electronically Signed: Rayo Hi MD at 11:14 EDT ,
[2023-06-14 10:13] LABS: Absolute Lymphocyte Count 1.15 X10^3/uL (0.83-4.51); Absolute Neutrophil Count 3.7 X10^3/uL (2.0-7.7); Basophil# 0.03 X10^3/uL; Basophil% 0.5 % (0-1); Eosinophil# 0.13 X10^3/uL; Eosinophils% 2.3 % (0-5); Hematocrit 42.3 % (37-47); Hemoglobin 13.3 g/dL (12.0-15.0); Lymphocyte # 1.15 X10^3/ul (0.83-4.51); Lymphocyte % 20.5 % (19-41); Mean Corp Hgb Conc 31.4 g/dL (32-36); Mean Corpuscular Hgb 29.8 pg (27.0-32.0); Mean Corpuscular Volume 94.6 fL (81-99); Mean Platelet Vol. 10.6 fl (6.2-12.0); Monocyte# 0.58 X10^3/uL; Monocyte% 10.4 % (0-10); NRBC Flagged by Analyzer 0 % (0-5); Neutrophil # 3.68 X10^3/uL (2.7-7.7); Neutrophil % 65.8 % (47-70); Platelet Count 257 K/mm3 (150-450); RBC Distribution Width CV 13.2 % (11.6-14.6); RBC Distribution Width SD 46.5 fl (35.1-43.9); Red Blood Count 4.47 M/mm3 (4.2-5.4); White Blood Count 5.6 K/mm3 (4.4-11.0)
[2023-06-14 10:35] LABS: PTHIN 69.4 pg/mL (18.4-80.1); Vitamin D,25 Hydroxy 64.6 ng/mL
[2023-06-14 10:47] LABS: ALB/GLOB Ratio 0.8 RATIO (0.9-2.4); AST(SGOT) 22 U/L (15-37); Alanine Aminotransfer ALT/SGPT 30 U/L (13-56); Albumin, Serum 3.4 g/dL (3.2-5.0); Alkaline Phosphatase 83 U/L (45-117); Anion Gap 5 (5-15); BUN 12 mg/dL (7-18); BUN/Creat Ratio 9.1 RATIO (10-20); Calcium,Total 8.8 mg/dL (8.5-10.1); Chloride 104 mmol/L (98-107); Creatinine, Serum 1.32 mg/dL (0.55-1.02); EST Glomerular Filtration Rate 41 mL/min (>60); Est Glom Filt Rate - Afr Amer 50 mL/min (>60); Globulin 4.2 g/dL (2.2-4.2); Glucose 93 mg/dL (74-106); Phosphorus 3.1 mg/dL (2.5-4.9); Potassium 3.7 mmol/L (3.5-5.1); Protein, Total 7.6 g/dL (6.4-8.2); Sodium Level 136 mmol/L (136-145)
== END | disposition home or self-care (01) ==
LOC: MTLAB 08:29
PROVIDERS: PCP Family Medicine; Referring Provider Family Medicine; Visit Provider Family Medicine
DX: I12.9 Hypertensive chronic kidney disease with stage 1 through stage 4 chronic kidney disease, or unspecified chronic kidney disease (principal); N18.30 Chronic kidney disease, stage 3 unspecified; M25.812 Other specified joint disorders, left shoulder
CPT/HCPCS: 36415; 73030; 80053; 82306; 83970; 84100; 84443; 85025

== ENCOUNTER 2023-09-11 13:00 | Outpatient (RCR) | payer MEDICARE, SELFPAY ==
--- NOTE | 2023-07-10 14:31 | HP.PTEVAL_ITS ---
Patient's Visit Information Visit Information Visit Information: HAYDEE STRAUSS is a 78 year old F referred to Physical Therapy by Dr. Don Madsen MD with a diagnosis of L shoulder impingement. Date of Evaluation: 07/10/23 Physical Therapist: Ru Hernandez, PT, ATC Visit Plan Frequency: 2-3x /Week Duration: 4-6 Weeks Plan: L shoulder rot cuff strengthening, scap stab ex's, UBE, and HEP Subjective Subjective: Pt reports she fell while ascending the stairs 6 mos ago. Pt reports she landed on her L shoulder and experienced severe pain as a result. Pt notes she had an x-ray at that time that revealed no Fx. Pt reports the pain eventually went away until one month ago when her OA has kicked in. Pt reports reaching out to her side and lifting her arm up overhead all results in severe pain. Pt denies any tingling or numbness in her L UE at this time. Pt reports she has a hard time driving at this time secondary to L shoulder pain and li mited ROM. Pt reports no sleep difficulty at this time secondary to pain. Pt notes her L shoulder pops on occasion but does not result in pain. Pt is L hand dominant. 0/10 while sitting here at rest, 8/10 pain at worst. Pain L shoulder: Pain Intensity (Out of 10): 0 Pain Intensity Range: 8 Objective Objective: Neuro: B UE sensation is WNL to light touch. B bicipital reflex= 2/3 Palpation: Pt is sore along the distribution of the supraspinatus tendon. Minor deformity noted on the L AC joint. ROM: R shoulder flex= 150, abd= 130, ER= 30, IR= WNL; L shoulder flex= 60, abd= 55, ER= 0, IR= WNL MMT: R shoulder flex= 4, abd= 15, ER= 8, IR= 13 #F; L shoulder flex= 4, abd= 0, ER= 0, IR= 9 #F SPecial tests: Pos empty can Balance/Special Test Scores Quick DASH Score: 22.7250 Goals Goal 1:: Decrease L shoulder pain x 50% to aid with IADL's Goal Time Frame: 4-6 Weeks Goal 2:: Increase L shoulder flex and abd ROM x 20 degrees to aid with overhead lifting activities Goal Time Frame: 4-6 Weeks Goal 3:: Increase L shoulder strength x 5#F in all planes to aid with IADL's Goal Time Frame: 4-6 Weeks Goal 4:: I with HEP Goal Time Frame: 4-6 Weeks Rehabilitation Potential Physical Therapy Diagnosis: Pt has L shoulder pain, weakness, and limited ROM secondary to L rotator cuff strain Rehabilitation Potential: Good Anticipated Interventions Patient/Client Instruction: Educate patient on: Condition and Plan of Care For the Purpose of:: To improve self management Therapeutic Exercise to Include: Strength training, Endurance training, Flexibilty training, Active ROM and Scapular Strength/Stabilization For the Purpose of:: To decrease pain, To increase ROM and To improve muscle performance and motor function Cryotherapy (ice pack, ice massage): Yes For the Purpose of:: To decrease pain Text: Thank you for the opportunity to evaluate your patient. For Medicare and Medicare HMO plans, please review the plan of care and approve it. It will need to be FAXED BACK to us at [phone] for Medicare purposes. For Medicare only, by signing this I certify the plan of care. Please let me know if there are questions or concerns regarding this plan of care. Physician Signature: Date:
--- NOTE | 2023-09-13 13:46 | HP.PTDCSUM ---
Discharge Summary D/C summary: It has been my pleasure to treat HAYDEE STRAUSS referred by Dr. Don Madsen MD, with the diagnosis of L shoulder impingement for a total of 23 visit(s). Discharge Date: Please see the following information for a summary of their discharge status. Subjective Subjective: Pt reports she is ready for discharge Pain L shoulder: Pain Intensity (Out of 10): 0 LBP: Pain Intensity (Out of 10): 0 Overall Improvement % Improvement: 50 Objective Objective/Function: L shoulder pain ranges from 0-3/10 MMT: L shoulder flex= 0, abd= 8, ER= 8, IR= 15 #F L shoulder ROM: flex= 87, abd= 65 degrees Pt is I with HEP Goals Goal 1:: Decrease L shoulder pain x 50% to aid with IADL's Goal Progress: Goal Met Goal 2:: Increase L shoulder flex and abd ROM x 20 degrees to aid with overhead lifting activities Goal Progress: Progressing Goal 3:: Increase L shoulder strength x 5#F in all planes to aid with IADL's Goal Progress: Progressing Goal 4:: I with HEP Goal Progress: Goal Met Plan Plan: Discharge to HEP D/C Information d/c sentence: If there are questions or concerns regarding this patient's physical therapy, please feel free to call me at [phone]. Thank you for the referral of this patient. Sincerely, Ru Hernandez, PT, ATC Balance/Gait/Functional tests Balance/Special Test Scores Quick DASH Score: 31.8175 Improvement % Improvement: 50
== END 2023-09-11 19:00 | disposition home or self-care (01) ==
LOC: PT 13:00
PROVIDERS: PCP Family Medicine; Referring Provider Family Medicine; Visit Provider Family Medicine
DX: M25.812 Other specified joint disorders, left shoulder (principal)
CPT/HCPCS: 97110; 97161; 97164

== ENCOUNTER → 2023-10-14 | Outpatient (CLI) | payer MEDICARE, SELFPAY ==
[2023-10-14 08:04] LABS: Bacteria 0 SEEN /hpf (None Seen); Mucous, Urine 0 SEEN /hpf (<or=2+); Red Blood Cells-Urine 0 SEEN /hpf (0-5)
--- OUTSIDE RECORDS SUMMARY | 2023-10-14 08:37 | XMS RPT_ITS | CCD ---
Author Name Unknown Address [address] [place] [address] Organization [facility] Care Team Providers Care Stunner Name Role Phone LUZ GEORGES HAROON Unavailable Unavailabl e Allergies Allergy Classification Reported Allergen(s) Allergy Type Date of Onset Reaction(s) Facility (1 source) Sulfonamides (Antibiotic); Translations: [SULFA (SULFONAMIDE ANTIBIOTICS)] Propensity to adverse reactions to drug (disorder) [facility] [place] Repository Problems Problem Classification Problem Date Documented Da te Episodic/Chronic Unclassified (1 source) Unknown / UNK(Unknown) Onset: 09-30-2017 Results Test Name Value Interpretation Reference Range Facil ity Encounters Encounter Date Encounter Type Care Provider Facility Start: 09-30-2017 End: 09-30-2017 Ambulatory GEORGES CANDIDOSE MARCETRUDY [facility] Cl vj Summary Purpose Family History No Family History Records Found Advance Directives No Advanced Directives Records Found Additional Source Comments INFORMATION SOURCE (unrecogn ized section and content) FOR RECORDS PERTAINING TO PATIENTS WHO ARE OR HAVE BEEN ENROLLED IN A CHEMICAL DEPENDENCY/SUBSTANCEABUSE PROGRAM, SOME INFORMATION MAY BE OMITTED. This clinical summary was aggregated from multiple sources. Caution should be exercised in using it in the provision of clinical care. This summary normalizes information from multiple sources, and as a consequence, information in this document may materially change the coding, format and clinical context of patient data. In addition, data may be omitted in some cases. CLINICAL DECISIONS SHOULD BE BASED ON THE PRIMARY CLINICAL RECORDS. [email or web address] provides no warranty or guarantee of the accuracy or completeness of information in this document.
[2023-10-14 10:37] LABS: Absolute Lymphocyte Count 1.36 X10^3/uL (0.83-4.51); Absolute Neutrophil Count 3.5 X10^3/uL (2.0-7.7); Basophil# 0.05 X10^3/uL; Basophil% 0.9 % (0-1); Eosinophil# 0.17 X10^3/uL; Hematocrit 40.4 % (37-47); Lymphocyte # 1.36 X10^3/ul (0.83-4.51); Lymphocyte % 24.1 % (19-41); Mean Corp Hgb Conc 32.2 g/dL (32-36); Mean Corpuscular Hgb 29.9 pg (27.0-32.0); Mean Corpuscular Volume 92.9 fL (81-99); Mean Platelet Vol. 10.8 fl (6.2-12.0); Monocyte# 0.53 X10^3/uL; Monocyte% 9.4 % (0-10); NRBC Flagged by Analyzer 0 % (0-5); Neutrophil # 3.51 X10^3/uL (2.7-7.7); Neutrophil % 62.2 % (47-70); Platelet Count 230 K/mm3 (150-450); RBC Distribution Width CV 12.9 % (11.6-14.6); Red Blood Count 4.35 M/mm3 (4.2-5.4); White Blood Count 5.6 K/mm3 (4.4-11.0)
[2023-10-14 10:52] LABS: Vitamin D,25 Hydroxy 46.6 ng/mL
[2023-10-14 10:59] LABS: Protein, Urine (Random) 13.4 mg/dL (<11.9); Protein:Creat Ratio 90 mg/g CRE (0-200)
[2023-10-14 11:04] LABS: PTHIN 45.7 pg/mL (18.4-80.1)
[2023-10-14 11:05] LABS: ALB/GLOB Ratio 0.9 RATIO (0.9-2.4); AST(SGOT) 16 U/L (15-37); Alanine Aminotransfer ALT/SGPT 19 U/L (13-56); Albumin, Serum 3.4 g/dL (3.2-5.0); Alkaline Phosphatase 88 U/L (45-117); Anion Gap 3 (5-15); BUN 14 mg/dL (7-18); BUN/Creat Ratio 11.6 RATIO (10-20); Calcium,Total 9.6 mg/dL (8.5-10.1); Chloride 109 mmol/L (98-107); Cholesterol 217 mg/dL (200); Creatinine, Serum 1.21 mg/dL (0.55-1.02); EST Glomerular Filtration Rate 45 mL/min (>60); Est Glom Filt Rate - Afr Amer 55 mL/min (>60); Globulin 3.8 g/dL (2.2-4.2); Glucose 89 mg/dL (74-106); High Density Lipoprotein 60 mg/dL; Phosphorus 3.8 mg/dL (2.5-4.9); Protein, Total 7.2 g/dL (6.4-8.2); Sodium Level 140 mmol/L (136-145); Thyroid Stim Hormone (TSH) 1.59 uIU/mL (0.358-3.74); Triglycerides 115 mg/dL; Very Low Density Lipoprotein 23 mg/dL (5-40)
[2023-10-14 11:06] LABS: Color, Urine Yellow (Yellow); Glucose, Dipstick Normal (Normal); Ketone-Dipstick 5 mg/dl (Negative); Leukocyte Esterase-Dipstick 25 /ul (Negative); Nitrite-Dipstick Negative (Negative); Occult Blood-Urine Negative /ul (Negative); Protein-Dipstick 15 mg/dl (Negative); Urine Bilirubin Dipstick Negative (Negative); Urine Clarity Sl. Cloudy (Clear); Urine Urobilinogen Normal (Normal); Urine pH 6.5 (5.0 - 8.0)
[2023-10-14 11:21] LABS: Squamous Epithelial Cells - UA 0-5 SEEN /hpf (5-10); White Blood Cells 0-5 SEEN /hpf (0-5)
== END | disposition home or self-care (01) ==
LOC: MFPLAB 08:01
PROVIDERS: PCP Family Medicine; Visit Provider Family Medicine
DX: I12.9 Hypertensive chronic kidney disease with stage 1 through stage 4 chronic kidney disease, or unspecified chronic kidney disease (principal); N18.30 Chronic kidney disease, stage 3 unspecified; E55.9 Vitamin D deficiency, unspecified
CPT/HCPCS: 36415; 80053; 80061; 81001; 82306; 82570; 83970; 84100; 84156; 84443; 85025

== ENCOUNTER → 2024-02-19 | Outpatient (CLI) | payer MEDICARE, SELFPAY ==
[2024-02-19 11:24] LABS: Mucous, Urine 0 SEEN /hpf (<or=2+); Red Blood Cells-Urine 0 SEEN /hpf (0-5)
[2024-02-19 15:13] LABS: Absolute Lymphocyte Count 1.35 X10^3/uL (0.83-4.51); Absolute Neutrophil Count 3.8 X10^3/uL (2.0-7.7); Basophil# 0.05 X10^3/uL; Basophil% 0.8 % (0-1); Eosinophil# 0.16 X10^3/uL; Eosinophils% 2.6 % (0-5); Hematocrit 40.5 % (37-47); Hemoglobin 12.9 g/dL (12.0-15.0); Lymphocyte # 1.35 X10^3/ul (0.83-4.51); Lymphocyte % 22.4 % (19-41); Mean Corp Hgb Conc 31.9 g/dL (32-36); Mean Corpuscular Hgb 29.4 pg (27.0-32.0); Mean Corpuscular Volume 92.3 fL (81-99); Mean Platelet Vol. 10.7 fl (6.2-12.0); Monocyte# 0.63 X10^3/uL; Monocyte% 10.4 % (0-10); NRBC Flagged by Analyzer 0 % (0-5); Neutrophil # 3.84 X10^3/uL (2.7-7.7); Neutrophil % 63.6 % (47-70); Platelet Count 239 K/mm3 (150-450); RBC Distribution Width CV 12.9 % (11.6-14.6); RBC Distribution Width SD 43.8 fl (35.1-43.9); Red Blood Count 4.39 M/mm3 (4.2-5.4)
[2024-02-19 15:28] LABS: Color, Urine Yellow (Yellow); Glucose, Dipstick Normal (Normal); Ketone-Dipstick Negative (Negative); Leukocyte Esterase-Dipstick 25 /ul (Negative); Nitrite-Dipstick Negative (Negative); Occult Blood-Urine Negative /ul (Negative); Protein-Dipstick Negative (Negative); Urine Bilirubin Dipstick Negative (Negative); Urine Clarity Clear (Clear); Urine Urobilinogen Normal (Normal); Urine pH 6.5 (5.0 - 8.0)
[2024-02-19 15:48] LABS: PTHIN 52.6 pg/mL (18.4-80.1)
[2024-02-19 15:50] LABS: Vitamin D,25 Hydroxy 46.2 ng/mL
[2024-02-19 15:51] LABS: Protein, Urine (Random) 7.3 mg/dL (<11.9); Protein:Creat Ratio 109 mg/g CRE (0-200)
[2024-02-19 15:56] LABS: Bacteria 1+ /hpf (None Seen); Squamous Epithelial Cells - UA 0-5 SEEN /hpf (5-10); White Blood Cells 0-5 SEEN /hpf (0-5)
[2024-02-19 16:14] LABS: ALB/GLOB Ratio 0.9 RATIO (0.9-2.4); AST(SGOT) 21 U/L (15-37); Alanine Aminotransfer ALT/SGPT 22 U/L (13-56); Albumin, Serum 3.5 g/dL (3.2-5.0); Alkaline Phosphatase 88 U/L (45-117); Anion Gap 6 (5-15); BUN 12 mg/dL (7-18); BUN/Creat Ratio 10.3 RATIO (10-20); Calcium,Total 9.5 mg/dL (8.5-10.1); Chloride 105 mmol/L (98-107); Cholesterol 225 mg/dL (200); Creatinine, Serum 1.16 mg/dL (0.55-1.02); EST Glomerular Filtration Rate 48 mL/min (>60); Est Glom Filt Rate - Afr Amer 58 mL/min (>60); Globulin 3.9 g/dL (2.2-4.2); Glucose 92 mg/dL (74-106); High Density Lipoprotein 56 mg/dL; Magnesium 2.3 mg/dL (1.6-2.6); Phosphorus 3.8 mg/dL (2.5-4.9); Potassium 4.3 mmol/L (3.5-5.1); Protein, Total 7.4 g/dL (6.4-8.2); Sodium Level 137 mmol/L (136-145); Thyroid Stim Hormone (TSH) 1.18 uIU/mL (0.358-3.74); Triglycerides 156 mg/dL; Very Low Density Lipoprotein 31 mg/dL (5-40)
== END | disposition home or self-care (01) ==
LOC: MFPLAB 11:20
PROVIDERS: PCP Family Medicine; Visit Provider Family Medicine
DX: I12.9 Hypertensive chronic kidney disease with stage 1 through stage 4 chronic kidney disease, or unspecified chronic kidney disease (principal); N18.2 Chronic kidney disease, stage 2 (mild); E55.9 Vitamin D deficiency, unspecified
CPT/HCPCS: 36415; 80053; 80061; 81001; 82306; 82570; 83735; 83970; 84100; 84156; 84443; 85025

== ENCOUNTER → 2024-09-23 | Outpatient (CLI) | payer MEDICARE, SELFPAY ==
[2024-09-23 10:22] LABS: Absolute Lymphocyte Count 1.27 X10^3/uL (0.83-4.51); Absolute Neutrophil Count 3.8 X10^3/uL (2.0-7.7); Basophil# 0.04 X10^3/uL; Basophil% 0.7 % (0-1); Eosinophil# 0.14 X10^3/uL; Eosinophils% 2.4 % (0-5); Hematocrit 41.7 % (37-47); Hemoglobin 13.1 g/dL (12.0-15.0); Lymphocyte # 1.27 X10^3/ul (0.83-4.51); Lymphocyte % 21.9 % (19-41); Mean Corp Hgb Conc 31.4 g/dL (32-36); Mean Corpuscular Hgb 29.1 pg (27.0-32.0); Mean Corpuscular Volume 92.7 fL (81-99); Mean Platelet Vol. 10.9 fl (6.2-12.0); Monocyte# 0.52 X10^3/uL; NRBC Flagged by Analyzer 0 % (0-5); Neutrophil % 65.7 % (47-70); Platelet Count 209 K/mm3 (150-450); White Blood Count 5.8 K/mm3 (4.4-11.0)
[2024-09-23 10:38] LABS: Vitamin D,25 Hydroxy 44.7 ng/mL
[2024-09-23 10:49] LABS: ALB/GLOB Ratio 0.9 RATIO (0.9-2.4); AST(SGOT) 16 U/L (15-37); Alanine Aminotransfer ALT/SGPT 19 U/L (13-56); Albumin, Serum 3.5 g/dL (3.2-5.0); Alkaline Phosphatase 85 U/L (45-117); Anion Gap 6 (5-15); BUN 14 mg/dL (7-18); BUN/Creat Ratio 11.2 RATIO (10-20); Calcium,Total 9.3 mg/dL (8.5-10.1); Chloride 110 mmol/L (98-107); Creatinine, Serum 1.25 mg/dL (0.55-1.02); EST Glomerular Filtration Rate 44 mL/min (>60); Est Glom Filt Rate - Afr Amer 53 mL/min (>60); Globulin 3.7 g/dL (2.2-4.2); Glucose 91 mg/dL (74-106); Potassium 3.9 mmol/L (3.5-5.1); Protein, Total 7.2 g/dL (6.4-8.2); Sodium Level 141 mmol/L (136-145)
[2024-09-23 11:51] LABS: Microalbumin,Random Urine 13.2 mg/L (NO RANGE EST.); Protein, Urine (Random) 14.8 mg/dL (<11.9); Protein:Creat Ratio 72 mg/g CRE (0-200)
[2024-09-24 09:39] LABS: Color, Urine Yellow (Yellow); Glucose, Dipstick Normal (Normal); Ketone-Dipstick Negative (Negative); Leukocyte Esterase-Dipstick Negative /ul (Negative); Nitrite-Dipstick Negative (Negative); Occult Blood-Urine Negative /ul (Negative); Protein-Dipstick Negative (Negative); Specific Gravity, Urine 1.015 (1.002-1.030); Urine Bilirubin Dipstick Negative (Negative); Urine Clarity Clear (Clear); Urine Urobilinogen Normal (Normal)
== END | disposition home or self-care (01) ==
PROVIDERS: PCP Family Medicine; Referring Provider Family Medicine; Visit Provider Family Medicine
DX: I10 Essential (primary) hypertension (principal); E55.9 Vitamin D deficiency, unspecified
CPT/HCPCS: 36415; 80053; 81002; 82043; 82306; 82570; 84156; 85025

== ENCOUNTER → 2025-01-22 | Outpatient (CLI) | payer MEDICARE, SELFPAY ==
[2025-01-22 09:18] LABS: Bacteria 0 SEEN /hpf (None Seen)
[2025-01-22 10:17] LABS: Color, Urine Yellow (Yellow); Glucose, Dipstick Normal (Normal); Ketone-Dipstick Negative (Negative); Leukocyte Esterase-Dipstick 25 /ul (Negative); Nitrite-Dipstick Negative (Negative); Occult Blood-Urine Negative /ul (Negative); Protein-Dipstick Negative (Negative); Urine Bilirubin Dipstick Negative (Negative); Urine Clarity Clear (Clear); Urine Urobilinogen Normal (Normal)
[2025-01-22 10:20] LABS: Absolute Lymphocyte Count 1.44 X10^3/uL (0.83-4.51); Basophil# 0.05 X10^3/uL; Eosinophil# 0.23 X10^3/uL; Eosinophils% 4.4 % (0-5); Hematocrit 39.9 % (37-47); Hemoglobin 12.9 g/dL (12.0-15.0); Lymphocyte # 1.44 X10^3/ul (0.83-4.51); Lymphocyte % 27.5 % (19-41); Mean Corp Hgb Conc 32.3 g/dL (32-36); Mean Corpuscular Hgb 29.9 pg (27.0-32.0); Mean Corpuscular Volume 92.4 fL (81-99); Mean Platelet Vol. 10.7 fl (6.2-12.0); Monocyte# 0.45 X10^3/uL; Monocyte% 8.6 % (0-10); NRBC Flagged by Analyzer 0 % (0-5); Neutrophil # 3.04 X10^3/uL (2.7-7.7); Neutrophil % 58.1 % (47-70); Platelet Count 216 K/mm3 (150-450); RBC Distribution Width CV 12.7 % (11.6-14.6); RBC Distribution Width SD 43.3 fl (35.1-43.9); Red Blood Count 4.32 M/mm3 (4.2-5.4); White Blood Count 5.2 K/mm3 (4.4-11.0)
[2025-01-22 10:30] LABS: Red Blood Cells-Urine 0-5 SEEN /hpf (0-5); Squamous Epithelial Cells - UA 0-5 SEEN /hpf (5-10); White Blood Cells 0-5 SEEN /hpf (0-5)
[2025-01-22 10:32] LABS: Mucous, Urine 1+ /hpf (<or=2+)
[2025-01-22 10:43] LABS: PTHIN 39 pg/mL (11-61)
[2025-01-22 10:45] LABS: Protein, Urine (Random) 14.4 mg/dL (0.0-12.0); Protein:Creat Ratio 76 mg/g CRE (0-200)
[2025-01-22 14:39] LABS: Cholesterol 247 mg/dL (<=200); High Density Lipoprotein 55 mg/dL; Low Density Lipoprotein Calc. 165 mg/dL; Triglycerides 136 mg/dL; Very Low Density Lipoprotein 27 mg/dL (5-40); Vitamin D,25 Hydroxy 42.9 ng/mL (30-100); cholesterol:hdl ratio screen 4.53
[2025-01-22 14:51] LABS: ALB/GLOB Ratio 1.3 RATIO (0.9-2.4); AST(SGOT) 22 U/L (<=31); Alanine Aminotransfer ALT/SGPT 14 U/L (<=34); Alkaline Phosphatase 86 U/L (35-104); Anion Gap 11 (5-15); BUN 14 mg/dL (4-19); BUN/Creat Ratio 11.2 RATIO (10-20); Calcium,Total 9.4 mg/dL (7.6-11.0); Carbon Dioxide 21.9 mmol/L (21.0-32.0); Chloride 106 mmol/L (98-108); Creatinine, Serum 1.21 mg/dL (0.70-1.20); EST Glomerular Filtration Rate 45 (>60); Globulin 2.9 g/dL (2.2-4.2); Glucose 91 mg/dL (70-99); Potassium 4.2 mmol/L (3.3-5.1); Protein, Total 6.9 g/dL (5.9-8.4); Sodium Level 139 mmol/L (133-145); Total Bilirubin 0.51 mg/dL (0.00-1.30)
== END | disposition home or self-care (01) ==
LOC: MFPLAB 09:15
PROVIDERS: PCP Family Medicine; Referring Provider Family Medicine; Visit Provider Family Medicine
DX: I12.9 Hypertensive chronic kidney disease with stage 1 through stage 4 chronic kidney disease, or unspecified chronic kidney disease (principal); N18.30 Chronic kidney disease, stage 3 unspecified
CPT/HCPCS: 36415; 80053; 80061; 81001; 82306; 82570; 83970; 84156; 85025

== ENCOUNTER → 2025-06-07 | Outpatient (CLI) | payer MEDICARE, SELFPAY ==
[2025-06-07 09:34] LABS: Red Blood Cells-Urine 0 SEEN /hpf (0-5)
--- OUTSIDE RECORDS SUMMARY | 2025-06-07 10:23 | XMS RPT_ITS | CCD ---
Author Organization [facility] Care Team Providers Care Telecommunications Manager Name Role Phone GEORGES ESCOBAR Unavailable Dr. Georges Clark Primary Care Provider Dr. Georges Escobar Referring Provider [phone] Dr. Donald Ingram Attending Provider Dr. Georges Escobar Other Provider Dr. Georges Escobar MD Primary Care Provider Dr. Georges Escobar MD Attending Provider [phone] Dr. Georges Escobar MD Referring Provider Georges Escobar Primary Care Unavailable Georges Escobar Attending Unavailable Georges Escobar Primary Care Unavailable Georges Escobar Attending Unavailable Georges Escobar Referring Unavailable Georges Escobar Attending Unavailable Georges Escobar Referring Unavailable Georges Escobar Primary Care Unavailable Allergies Allergy Classification Reported Allergen(s) Allergy Type Date of Onset Reaction(s) Facility (1 source) Sulfonamides (Antibiotic); Translations: [SULFA (SULFONAMIDE ANTIBIOTICS)] Propensity to adverse reactions to drug (disorder) 6 AOF [facility] Repository Problems Problem Classification Problem Date Documented Da te Episodic/Chronic Essential hypertension (1 source) Essential (primary) hypertension; Translations: [Essential (primary) hypertension] Onset: 10-07-2024 Chronic Hypertension with complications and secondary hypertension (1 source) Hypertensive chronic kidney disease with stage 1 through stage 4 chronic kidney disease, or unspecified chronic kidney disease; Translations: [Hypertensive chronic kidney disease with stage 1 through stage 4 chronic kidney disease, or unspecified chronic kidney disease] Onset: 01-28-2025 Chronic Joint disorders and dislocations; trauma-related (20 sources) Subluxation complex of lumbar vertebra; Translations: [Subluxation complex (vertebral) of lumbar region] 11-18-2017 Episodic Other acquired deformities (11 sources) Spondylolisthesis; Translations: [Spondylolisthesis, site unspecified] 11-20-2017 Episodic Comment on above: L4 Other bone disease and musculoskeletal deformities (20 sources) Segmental and somatic dysfunction; Translations: [Segmental and somatic dysfunction of cervical region] 11-18-2017 Episodic Unclassified (1 source) Unknown / UNK(Unknown) Onset: 09-30-2017 Results Test Name Value Interpretation Reference Range Facility Absolute lymphocyte countOrd ered By: Georges Escobar on 01-22-2025 Lymphocytes Auto (Unsp spec) [#/Vol] 1.44 10*3/uL 0.83-4.51 [facility] Absolute neutrophil countOrd ered By: Georges Escobar on 01-22-2025 Neutrophils (Bld) [#/Vol] 3.0 10*3/uL 2.0-7.7 [facility] Anion gap in Serum or Plasma Ordered By: Georges Escobar on 01-22-2025 Anion gap [Moles/Vol] 11 mmol/L 5-15 [facility] Automated lymphocyte count a s percentage of total leukocytesOrdered By: Georges Escobar on 01-22-2025 Lymphocytes/100 WBC Auto (Unsp spec) 27.5 % 19-41 [facility] BUN/creatinine ratioOrdered By: Georges Escobar on 01-22-2025 Urea nitrogen/Creatinine [Mass ratio] 11.2 mg/mg 10-20 [facility] Basophil percentageOrdered B y: Georges Escobar on 01-22-2025 Basophils/100 WBC (Bld) 1.0 % 0-1 [facility] Bilirubin Test strip Ql (U)O rdered By: Georges Escobar on 01-22-2025 Bilirubin Ql (U) Negative Negative [facility] Bilirubin, totalOrdered By: Georges Escobar on 01-22-2025 Bilirubin [Mass/Vol] 0.51 mg/dL 0.00-1.30 [facility] CBC W/Diff, Automatedon 01-10 Absolute Lymph 1.44 X10 3/uL Normal 0.83-4.51 [facility] Comment on above: Order Comment: Order Date: 02/19/24 Order Info: 0565-1 - PTHIN Performed By: #### L 500.4050, L501.9520, L506.1000, L501.2300, L501.5200, L100.0100, L500.4100, L509.1000 #### [facility] [address] [place], [address] Absolute Neut 3.0 X10 3/uL Normal 2.0-7.7 [facility] Comment on above: Order Comment: Order Date: 02/19/24 Order Info: 0565-1 - PTHIN Performed By: #### L 500.4050, L501.9520, L506.1000, L501.2300, L501.5200, L100.0100, L500.4100, L509.1000 #### [facility] [address] [place], [address] Basophils/100 WBC (Bld) 1.0 % Normal 0-1 [facility] Comment on above: Order Comment: Order Date: 02/19/24 Order Info: 0565-1 - PTHIN Performed By: #### L 500.4050, L501.9520, L506.1000, L501.2300, L501.5200, L100.0100, L500.4100, L509.1000 #### [facility] [address] [place], [address] Eosinophils/100 WBC (Bld) 4.4 % Normal 0-5 [facility] Comment on above: Order Comment: Order Date: 02/19/24 Order Info: 0565-1 - PTHIN Performed By: #### L 500.4050, L501.9520, L506.1000, L501.2300, L501.5200, L100.0100, L500.4100, L509.1000 #### [facility] [address] [place], [address] Erythrocyte distribution width (RBC) [Ratio] 12.7 % Normal 11.6-14.6 [facility] Comment on above: Order Comment: Order Date: 02/19/24 Order Info: 0565-1 - PTHIN Performed By: #### L 500.4050, L501.9520, L506.1000, L501.2300, L501.5200, L100.0100, L500.4100, L509.1000 #### [facility] [address] [place], [address] Hematocrit (Bld) [Volume fraction] 39.9 % Normal 37-47 [facility] Comment on above: Order Comment: Order Date: 02/19/24 Order Info: 0565-1 - PTHIN Performed By: #### L 500.4050, L501.9520, L506.1000, L501.2300, L501.5200, L100.0100, L500.4100, L509.1000 #### [facility] [address] [place], [address] Hemoglobin (Bld) [Mass/Vol] 12.9 g/dL Normal 12.0-15.0 [facility] Comment on above: Order Comment: Order Date: 02/19/24 Order Info: 0565-1 - PTHIN Performed By: #### L 500.4050, L501.9520, L506.1000, L501.2300, L501.5200, L100.0100, L500.4100, L509.1000 #### [facility] [address] [place], [address] IG% 0.400 Normal 0.0-0.9 [facility] Comment on above: Order Comment: Order Date: 02/19/24 Order Info: 0565-1 - PTHIN Result Comment: IG% - Immature Granulocytes (promyelocytes, myelocytes and metamyelocytes) > 1% indicates that a LEFT SHIFT is Present. Performed By: #### L 500.4050, L501.9520, L506.1000, L501.2300, L501.5200, L100.0100, L500.4100, L509.1000 #### [facility] [address] [place], [address] Lymphocytes/100 WBC (Bld) 27.5 % Normal 19-41 [facility] Comment on above: Order Comment: Order Date: 02/19/24 Order Info: 0565-1 - PTHIN Performed By: #### L 500.4050, L501.9520, L506.1000, L501.2300, L501.5200, L100.0100, L500.4100, L509.1000 #### [facility] [address] [place], [address] MCH (RBC) [Entitic mass] 29.9 pg Normal 27.0-32.0 [facility] Comment on above: Order Comment: Order Date: 02/19/24 Order Info: 0565-1 - PTHIN Performed By: #### L 500.4050, L501.9520, L506.1000, L501.2300, L501.5200, L100.0100, L500.4100, L509.1000 #### [facility] [address] [place], [address] MCHC (RBC) [Mass/Vol] 32.3 g/dL Normal 32-36 [facility] Comment on above: Order Comment: Order Date: 02/19/24 Order Info: 0565-1 - PTHIN Performed By: #### L 500.4050, L501.9520, L506.1000, L501.2300, L501.5200, L100.0100, L500.4100, L509.1000 #### [facility] [address] [place], [address] MCV (RBC) [Entitic vol] 92.4 fL Normal 81-99 [facility] Comment on above: Order Comment: Order Date: 02/19/24 Order Info: 0565-1 - PTHIN Performed By: #### L 500.4050, L501.9520, L506.1000, L501.2300, L501.5200, L100.0100, L500.4100, L509.1000 #### [facility] [address] [place], [address] Monocytes/100 WBC (Bld) 8.6 % Normal 0-10 [facility] Comment on above: Order Comment: Order Date: 02/19/24 Order Info: 0565-1 - PTHIN Performed By: #### L 500.4050, L501.9520, L506.1000, L501.2300, L501.5200, L100.0100, L500.4100, L509.1000 #### [facility] [address] [place], [address] Neutrophils/100 WBC (Bld) 58.1 % Normal 47-70 [facility] Comment on above: Order Comment: Order Date: 02/19/24 Order Info: 0565-1 - PTHIN Performed By: #### L 500.4050, L501.9520, L506.1000, L501.2300, L501.5200, L100.0100, L500.4100, L509.1000 #### [facility] [address] [place], [address] Nucleated RBC (Bld) [#/Vol] 0 10*3/uL Normal 0-5 [facility] Comment on above: Order Comment: Order Date: 02/19/24 Order Info: 0565-1 - PTHIN Performed By: #### L 500.4050, L501.9520, L506.1000, L501.2300, L501.5200, L100.0100, L500.4100, L509.1000 #### [facility] [address] [place], [address] Platelet mean volume (Bld) [Entitic vol] 10.7 fL Normal 6.2-12.0 [facility] Comment on above: Order Comment: Order Date: 02/19/24 Order Info: 0565-1 - PTHIN Performed By: #### L 500.4050, L501.9520, L506.1000, L501.2300, L501.5200, L100.0100, L500.4100, L509.1000 #### [facility] [address] [place], [address] Platelets (Bld) [#/Vol] 216 10*3/uL Normal 150-450 [facility] Comment on above: Order Comment: Order Date: 02/19/24 Order Info: 0565-1 - PTHIN Performed By: #### L 500.4050, L501.9520, L506.1000, L501.2300, L501.5200, L100.0100, L500.4100, L509.1000 #### [facility] [address] [place], [address] RBC (Bld) [#/Vol] 4.32 10*6/uL Normal 4.2-5.4 [facility] Comment on above: Order Comment: Order Date: 02/19/24 Order Info: 0565-1 - PTHIN Performed By: #### L 500.4050, L501.9520, L506.1000, L501.2300, L501.5200, L100.0100, L500.4100, L509.1000 #### [facility] [address] [place], [address] RDW SD 43.3 fl Normal 35.1-43.9 [facility] Comment on above: Order Comment: Order Date: 02/19/24 Order Info: 0565-1 - PTHIN Performed By: #### L 500.4050, L501.9520, L506.1000, L501.2300, L501.5200, L100.0100, L500.4100, L509.1000 #### [facility] [address] [place], [address] WBC (Bld) [#/Vol] 5.2 10*3/uL Normal 4.4-11.0 [facility] Comment on above: Order Comment: Order Date: 02/19/24 Order Info: 0565-1 - PTHIN Performed By: #### L 500.4050, L501.9520, L506.1000, L501.2300, L501.5200, L100.0100, L500.4100, L509.1000 #### [facility] [address] [place], [address] Calculated very low density lipoprotein (VLDL) cholesterol measurementOrdered By: Georges Escobar on 01-22-2025 Calculated very low density lipoprotein (VLDL) cholesterol measurement 27 mg/dL 5-40 [facility] Carbon dioxide, total [Moles /volume] in Central venous bloodOrdered By: Georges Escobar on 01-22-2025 CO2 [Moles/Vol] 21.9 mmol/L 21.0-32.0 [facility] Chloride assayOrdered By: Pam Escobar on 01-22-2025 Chloride [Moles/Vol] 106 mmol/L 98-108 [facility] Comprehensive Metabolic Prof ilon 01-22-2025 Albumin [Mass/Vol] 4.0 g/dL Normal 3.4-4.8 [facility] Comment on above: Order Comment: Order Date: 02/19/24 Order Info: [id number] - VITD25 Performed By: #### L 500.4050, L501.9520, L506.1000, L501.2300, L501.5200, L100.0100, L500.4100, L509.1000 #### [facility] [address] [place], [address] Albumin/Globulin [Mass ratio] 1.3 {ratio} Normal 0.9-2.4 [facility] Comment on above: Order Comment: Order Date: 02/19/24 Order Info: [id number] - VITD25 Performed By: #### L 500.4050, L501.9520, L506.1000, L501.2300, L501.5200, L100.0100, L500.4100, L509.1000 #### [facility] [address] [place], [address] ALK PHOS 86 U/L Normal 35-104 [facility] Comment on above: Order Comment: Order Date: 02/19/24 Order Info: [id number] - VITD25 Performed By: #### L 500.4050, L501.9520, L506.1000, L501.2300, L501.5200, L100.0100, L500.4100, L509.1000 #### [facility] [address] [place], [address] ALT [Catalytic activity/Vol] 14 U/L Normal <=34 [facility] Comment on above: Order Comment: Order Date: 02/19/24 Order Info: [id number] - VITD25 Performed By: #### L 500.4050, L501.9520, L506.1000, L501.2300, L501.5200, L100.0100, L500.4100, L509.1000 #### [facility] [address] [place], [address] AST [Catalytic activity/Vol] 22 U/L Normal <=31 [facility] Comment on above: Order Comment: Order Date: 02/19/24 Order Info: [id number] - VITD25 Performed By: #### L 500.4050, L501.9520, L506.1000, L501.2300, L501.5200, L100.0100, L500.4100, L509.1000 #### [facility] [address] [place], [address] Bilirubin [Mass/Vol] 0.51 mg/dL Normal 0.00-1.30 [facility] Comment on above: Order Comment: Order Date: 02/19/24 Order Info: [id number] - VITD25 Performed By: #### L 500.4050, L501.9520, L506.1000, L501.2300, L501.5200, L100.0100, L500.4100, L509.1000 #### [facility] [address] [place], [address] BUN/CRE 11.2 RATIO Normal 10-20 [facility] Comment on above: Order Comment: Order Date: 02/19/24 Order Info: [id number] - VITD25 Performed By: #### L 500.4050, L501.9520, L506.1000, L501.2300, L501.5200, L100.0100, L500.4100, L509.1000 #### [facility] [address] [place], [address] Calcium [Mass/Vol] 9.4 mg/dL Normal 7.6-11.0 [facility] Comment on above: Order Comment: Order Date: 02/19/24 Order Info: [id number] - VITD25 Performed By: #### L 500.4050, L501.9520, L506.1000, L501.2300, L501.5200, L100.0100, L500.4100, L509.1000 #### [facility] [address] [place], [address] Chloride [Moles/Vol] 106 mmol/L Normal 98-108 [facility] Comment on above: Order Comment: Order Date: 02/19/24 Order Info: [id number] - VITD25 Performed By: #### L 500.4050, L501.9520, L506.1000, L501.2300, L501.5200, L100.0100, L500.4100, L509.1000 #### [facility] [address] [place], [address] CO2 [Moles/Vol] 21.9 mmol/L Normal 21.0-32.0 [facility] Comment on above: Order Comment: Order Date: 02/19/24 Order Info: [id number] - VITD25 Performed By: #### L 500.4050, L501.9520, L506.1000, L501.2300, L501.5200, L100.0100, L500.4100, L509.1000 #### [facility] [address] [place], [address] Creatinine [Mass/Vol] 1.21 mg/dL High 0.70-1.20 [facility] Comment on above: Order Comment: Order Date: 02/19/24 Order Info: [id number] - VITD25 Performed By: #### L 500.4050, L501.9520, L506.1000, L501.2300, L501.5200, L100.0100, L500.4100, L509.1000 #### [facility] [address] [place], [address] GAP 11 Normal 5-15 [facility] Comment on above: Order Comment: Order Date: 02/19/24 Order Info: [id number] - VITD25 Performed By: #### L 500.4050, L501.9520, L506.1000, L501.2300, L501.5200, L100.0100, L500.4100, L509.1000 #### [facility] [address] [place], [address] GFR/1.73 sq M.predicted among non-blacks MDRD (S/P/Bld) [Vol rate/Area] 45 mL/min/{1.73_m2} Low >60 [facility] Comment on above: Order Comment: Order Date: 02/19/24 Order Info: [id number] - VITD25 Result Comment: mL/m in/1.73m2 CKD-EPI Creatinine Equation (2020) Performed By: #### L 500.4050, L501.9520, L506.1000, L501.2300, L501.5200, L100.0100, L500.4100, L509.1000 #### [facility] [address] [place], [address] Globulin (S) [Mass/Vol] 2.9 g/dL Normal 2.2-4.2 [facility] Comment on above: Order Comment: Order Date: 02/19/24 Order Info: [id number] - VITD25 Performed By: #### L 500.4050, L501.9520, L506.1000, L501.2300, L501.5200, L100.0100, L500.4100, L509.1000 #### [facility] [address] [place], [address] Glucose [Mass/Vol] 91 mg/dL Normal 70-99 [facility] Comment on above: Order Comment: Order Date: 02/19/24 Order Info: [id number] - VITD25 Performed By: #### L 500.4050, L501.9520, L506.1000, L501.2300, L501.5200, L100.0100, L500.4100, L509.1000 #### [facility] [address] [place], [address] Potassium [Moles/Vol] 4.2 mmol/L Normal 3.3-5.1 [facility] Comment on above: Order Comment: Order Date: 02/19/24 Order Info: [id number] - VITD25 Performed By: #### L 500.4050, L501.9520, L506.1000, L501.2300, L501.5200, L100.0100, L500.4100, L509.1000 #### [facility] [address] [place], [address] Sodium [Moles/Vol] 139 mmol/L Normal 133-145 [facility] Comment on above: Order Comment: Order Date: 02/19/24 Order Info: [id number] - VITD25 Performed By: #### L 500.4050, L501.9520, L506.1000, L501.2300, L501.5200, L100.0100, L500.4100, L509.1000 #### [facility] [address] [place], [address] T PROT 6.9 g/dL Normal 5.9-8.4 [facility] Comment on above: Order Comment: Order Date: 02/19/24 Order Info: [id number] - VITD25 Performed By: #### L 500.4050, L501.9520, L506.1000, L501.2300, L501.5200, L100.0100, L500.4100, L509.1000 #### [facility] [address] [place], [address] Urea nitrogen [Mass/Vol] 14 mg/dL Normal 4-19 [facility] Comment on above: Order Comment: Order Date: 02/19/24 Order Info: [id number] - VITD25 Performed By: #### L 500.4050, L501.9520, L506.1000, L501.2300, L501.5200, L100.0100, L500.4100, L509.1000 #### [facility] [address] [place], [place], [address] Eosinophil percentageOrdered By: Georges Escobar on 01-22-2025 Eosinophils/100 WBC (Bld) 4.4 % 0-5 [facility] Erythrocyte distribution wid th ratioOrdered By: Georges Escobar on 01-22-2025 Erythrocyte distribution width (RBC) [Ratio] 12.7 % 11.6-14.6 [facility] Erythrocyte distribution wid th standard deviationOrdered By: Georges Escobar on 01-22-2025 Erythrocyte distribution width (RBC) [Ratio] 43.3 fl 35.1-43.9 [facility] Glomerular filtration rate ( GFR) estimation/1.73 sq m using serum, plasma, or whole bOrdered By: Georges Escobar on 01-22-2025 GFR/1.73 sq M.predicted among non-blacks MDRD (S/P/Bld) [Vol rate/Area] 45 mL/min/{1.73_m2} Low >60 [facility] Comment on above: mL/min/1.73m2 CKD-EP I Creatinine Equation (2020) Hematocrit Auto (Bld) [Volum e fraction]Ordered By: Georges Escobar on 01-22-2025 Hematocrit (Bld) [Volume fraction] 39.9 % 37-47 [facility] Hemoglobin measurementOrdere d By: Georges Escobar on 01-22-2025 Hemoglobin (Bld) [Mass/Vol] 12.9 g/dL 12.0-15.0 [facility] Immature granulocytes/100 WB C Auto (Bld)Ordered By: Georges Escobar on 01-22-2025 Immature granulocytes/100 WBC (Bld) 0.400 % 0.0-0.9 [facility] Comment on above: IG% - Immature Granu locytes (promyelocytes, myelocytes and metamyelocytes) > 1% indicates that a LEFT SHIFT is Present. Ketones Test strip Ql (U)Ord ered By: Georges Escobar on 01-22-2025 Ketones Ql (U) Negative Negative [facility] LDL calc ser/plasOrdered By: Georges Escobar on 01-22-2025 Cholesterol in LDL [Mass/Vol] 165 mg/dL [facility] Comment on above: Teukbiefrq=576-011 m g/dL & Higher Wxqi=598 mg/dL or greater Laboratory - Chemistry and C hemistry - challengeOrdered By: Georges Escobar on 01-22-2025 AST [Catalytic activity/Vol] 22 U/L <32 [facility] Lipid Profileon 01-22-2025 CHOL:HDL 4.53 Normal [facility] Comment on above: Order Comment: Order Date: 02/19/24 Order Info: 0565-1 - PTHIN Performed By: #### L 500.4050, L501.9520, L506.1000, L501.2300, L501.5200, L100.0100, L500.4100, L509.1000 #### [facility] [address] [place], [place] [address]all [place]. [place], [place], [id number] Cholesterol [Mass/Vol] 247 mg/dL High <=200 [facility] Comment on above: Order Comment: Order Date: 02/19/24 Order Info: 0565-1 - PTHIN Result Comment: Chol esterol level, Desirable <200 mg/dL Borderline high cholesterol 200-239 mg/dL High cholesterol >=240 mg/dL Recommendations of the NCEP Adult Treatment Panel for the following risk-cutoff thresholds for the [place] population. Performed By: #### L 500.4050, L501.9520, L506.1000, L501.2300, L501.5200, L100.0100, L500.4100, L509.1000 #### [facility] [address] [place], [address] Cholesterol in HDL [Mass/Vol] 55 mg/dL Normal [facility] Comment on above: Order Comment: Order Date: 02/19/24 Order Info: 0565-1 - PTHIN Result Comment: Mirtha onal Cholesterol Education Program (NCEP) guidelines: <40 mg/dL: Low HDL-cholesterol (major risk factor for CHD) >= 60 mg/dL: High HDL-cholesterol (negative risk factor for CHD) HDL-cholesterol is affected by a number of factors, e.g. smoking, exercise, hormones, sex and age. Performed By: #### L 500.4050, L501.9520, L506.1000, L501.2300, L501.5200, L100.0100, L500.4100, L509.1000 #### [facility] [address] [place], [address] Cholesterol in LDL [Mass/Vol] 165 mg/dL Normal [facility] Comment on above: Order Comment: Order Date: 02/19/24 Order Info: 0565-1 - PTHIN Result Comment: Bord fftspt=000-860 mg/dL Higher Ekmy=803 mg/dL or greater Performed By: #### L 500.4050, L501.9520, L506.1000, L501.2300, L501.5200, L100.0100, L500.4100, L509.1000 #### [facility] [address] [place], [address] Cholesterol in VLDL [Mass/Vol] 27 mg/dL Normal 5-40 [facility] Comment on above: Order Comment: Order Date: 02/19/24 Order Info: 0565-1 - PTHIN Performed By: #### L 500.4050, L501.9520, L506.1000, L501.2300, L501.5200, L100.0100, L500.4100, L509.1000 #### [facility] [address] [place], [address] Triglyceride [Mass/Vol] 136 mg/dL Normal [facility] Comment on above: Order Comment: Order Date: 02/19/24 Order Info: 0565-1 - PTHIN Result Comment: The drugs N-Acetylcysteine and Metamizole may falsely depress this assay. Normal range: <150 mg/dL Borderline High: 150-199 mg/dL High: 200-499 mg/dL Very High: >500 mg/dL Performed By: #### L 500.4050, L501.9520, L506.1000, L501.2300, L501.5200, L100.0100, L500.4100, L509.1000 #### [facility] [address] [place], [address] MCV (mean corpuscular volume ) determinationOrdered By: Georges Escobar on 01-22-2025 MCV (RBC) [Entitic vol] 92.4 fL 81-99 [facility] Mean corpuscular hemoglobin (MCH) determinationOrdered By: Georges Escobar on 01-22-2025 MCH (RBC) [Entitic mass] 29.9 pg 27.0-32.0 [facility] Mean corpuscular hemoglobin concentration (MCHC) determinationOrdered By: Georges Escobar on 01-22-2025 MCHC (RBC) [Mass/Vol] 32.3 g/dL 32-36 [facility] [facility] Mean platelet volume determi nationOrdered By: Georges Escobar on 01-22-2025 Platelet mean volume (Bld) [Entitic vol] 10.7 fL 6.2-12.0 [facility] Microscopic analysis of urin e for red blood cells (RBC)Ordered By: Georges Escobar on 01-22-2025 Microscopic analysis of urine for red blood cells (RBC) 0-5 SEEN /hpf 0-5 [facility] Monocyte percentageOrdered B y: Georges Escobar on 01-22-2025 Monocytes/100 WBC (Bld) 8.6 % 0-10 [facility] Mucus LM Ql (Urine sed)Order ed By: Georges Escobar on 01-22-2025 Mucus Ql (Urine sed) 1+ /hpf [facility] Neutrophil percentageOrdered By: Georges Escobar on 01-22-2025 Neutrophils/100 WBC (Bld) 58.1 % 47-70 [facility] Nitrite Test strip Ql (U)Ord ered By: Georges Escobar on 01-22-2025 Nitrite Ql (U) Negative Negative [facility] Nucleated red blood cell per centageOrdered By: Georges Escobar on 01-22-2025 Nucleated RBC/100 WBC (Bld) [Ratio] 0 % 0-5 [facility] PTHINon 01-22-2025 PTH 39 pg/mL Normal 11-61 [facility] Comment on above: Order Comment: Order Date: 02/19/24 Order Info: [id number] - PTHIN Performed By: #### L 500.4050, L501.9520, L506.1000, L501.2300, L501.5200, L100.0100, L500.4100, L509.1000 #### [facility] [address] [place] [address]. [place], [address] Platelet countOrdered By: Pam Escobar on 01-22-2025 Platelets (Bld) [#/Vol] 216 10*3/uL 150-450 [facility] Potassium measurement (mass/ volume)Ordered By: Georges Escobar on 01-22-2025 Potassium (Unsp spec) [Mass/Vol] 4.2 mmol/L 3.3-5.1 [facility] Protein Test strip Ql (U)Ord ered By: Georges Escobar on 01-22-2025 Protein Ql (U) Negative Negative [facility] Protein+Creatinine Ratio,Uri neon 01-22-2025 PROT:CRE RATIO 76 mg/g CRE Normal 0-200 [facility] Comment on above: Performed By: #### L 500.4050, L501.9520, L506.1000, L501.2300, L501.5200, L100.0100, L500.4100, L509.1000 #### [facility] [address] [place], [address] Protein (U) [Mass/Vol] 14.4 mg/dL High 0.0-12.0 [facility] Comment on above: Performed By: #### L 500.4050, L501.9520, L506.1000, L501.2300, L501.5200, L100.0100, L500.4100, L509.1000 #### [facility] [address] [place], [address] UR CREAT 190.00 mg/dL Normal 28.00-217.00 [facility] Comment on above: Performed By: #### L 500.4050, L501.9520, L506.1000, L501.2300, L501.5200, L100.0100, L500.4100, L509.1000 #### [facility] [address] [place], [address] RBC Auto (Bld) [#/Vol]Ordere d By: Georges Escobar on 01-22-2025 RBC (Bld) [#/Vol] 4.32 10*6/uL 4.2-5.4 [facility] Random urine creatinine jose urement (mass/volume)Ordered By: Georges Escobar on 01-22-2025 Creatinine Unsp time (U) [Mass/Vol] 190.00 mg/dL 28.00-217.00 [facility] Screening total cholesterol/ high density lipoprotein (HDL) cholesterol ratioOrdered By: Georges Escobar on 01-22-2025 Cholesterol.total/Choles terol in HDL [Mass ratio] 4.53 {ratio} [facility] Serum creatinine measurement (mass/volume)Ordered By: Georges Escobar on 01-22-2025 Creatinine [Mass/Vol] 1.21 mg/dL High 0.70-1.20 [facility] Serum globulin measurementOr dered By: Georges Escobar on 01-22-2025 Globulin (S) [Mass/Vol] 2.9 g/dL 2.2-4.2 [facility] Serum glucose measurement (m ass/volume)Ordered By: Georges Escobar on 01-22-2025 Glucose [Mass/Vol] 91 mg/dL 70-99 [facility] Serum or plasma alanine landis otransferase (ALT) measurementOrdered By: Georges Escobar on 01-22-2025 ALT [Catalytic activity/Vol] 14 U/L <35 [facility] Serum or plasma albumin jose urement (mass/volume)Ordered By: Georges Escobar on 01-22-2025 Albumin [Mass/Vol] 4.0 g/dL 3.4-4.8 [facility] Serum or plasma albumin/glob ulin mass ratioOrdered By: Georges Escobar on 01-22-2025 Albumin/Globulin [Mass ratio] 1.3 {ratio} 0.9-2.4 [facility] Serum or plasma alkaline jase sphatase measurementOrdered By: Georges Escobar on 01-22-2025 ALP [Catalytic activity/Vol] 86 U/L 35-104 [facility] Serum or plasma calcium jose urement (mass/volume)Ordered By: Georges Escobar on 01-22-2025 Calcium [Mass/Vol] 9.4 mg/dL 7.6-11.0 [facility] Serum or plasma cholesterol in HDL measurement (mass/volume)Ordered By: Georges Escobar on 01-22-2025 Cholesterol in HDL [Mass/Vol] 55 mg/dL >40 [facility] Comment on above: National Cholesterol Education Program (NCEP) guidelines:<40 mg/dL: Low HDL-cholesterol (major risk factor for CHD)>= 60 mg/dL: High HDL-cholesterol (negative risk factor for CHD)HDL-cholesterol is affected by a number of factors, e.g. smoking, exercise, hormones, sex and age. Serum or plasma cholesterol measurement (mass/volume)Ordered By: Georges Escobar on 01-22-2025 Cholesterol [Mass/Vol] 247 mg/dL High <201 [facility] Comment on above: Cholesterol level, D esirable <200 mg/dLBorderline high cholesterol 200-239 mg/dLHigh cholesterol >=240 mg/dLRecommendations of the NCEP Adult Treatment Panel for the following risk-cutoff thresholds for the [place] population. Serum or plasma urea nitroge n measurement (mass/volume)Ordered By: Georges Escobar on 01-22-2025 Urea nitrogen [Mass/Vol] 14 mg/dL 4-19 [facility] Sodium levelOrdered By: Georges Escobar on 01-22-2025 Sodium [Moles/Vol] 139 mmol/L 133-145 [facility] Squamous epithelial cells de tection in urine sediment by light microscopyOrdered By: Georges Escobar on 01-22-2025 Epithelial cells.squamous LM Ql (Urine sed) 0-5 SEEN /hpf 5-10 [facility] Total proteinOrdered By: Demario Escobar on 01-22-2025 Protein [Mass/Vol] 6.9 g/dL 5.9-8.4 [facility] Triglycerides measurementOrd ered By: Georges Escobar on 01-22-2025 Triglyceride [Mass/Vol] 136 mg/dL <199 [facility] Comment on above: The drugs N-Acetylcy steine and Metamizole may falsely depress this assay. Normal range: <150 mg/dLBorderline High: 150-199 mg/dLHigh: 200-499 mg/dLVery High: >500 mg/dL Urinalysis, Completeon 01-22 Mucus Ql (Urine sed) 1+ /hpf Normal [facility] Comment on above: Order Comment: Order Date: 02/19/24 Order Info: [id number] - VITD25 Performed By: #### L 500.4050, L501.9520, L506.1000, L501.2300, L501.5200, L100.0100, L500.4100, L509.1000 #### [facility] [address] [place], [place], [id number] EPI,SQUAMOUS 0-5 SEEN Normal 5-10 [facility] Comment on above: Order Comment: Order Date: 02/19/24 Order Info: [id number] - VITD25 Performed By: #### L 500.4050, L501.9520, L506.1000, L501.2300, L501.5200, L100.0100, L500.4100, L509.1000 #### [facility] [address] [place], [place], [id number] RBC 0-5 SEEN Normal 0-5 [facility] Comment on above: Order Comment: Order Date: 02/19/24 Order Info: [id number] - VITD25 Performed By: #### L 500.4050, L501.9520, L506.1000, L501.2300, L501.5200, L100.0100, L500.4100, L509.1000 #### [facility] [address] [place], [place], [id number] WBC 0-5 SEEN Normal 0-5 [facility] Comment on above: Order Comment: Order Date: 02/19/24 Order Info: [id number] - VITD25 Performed By: #### L 500.4050, L501.9520, L506.1000, L501.2300, L501.5200, L100.0100, L500.4100, L509.1000 #### [facility] [address] [place], [place], [id number] BACTERIA 0 SEEN Normal None Seen [facility] Comment on above: Order Comment: Order Date: 02/19/24 Order Info: [id number] - VITD25 Performed By: #### L 500.4050, L501.9520, L506.1000, L501.2300, L501.5200, L100.0100, L500.4100, L509.1000 #### [facility] [address] [place], [place], [id number] Urine clarityOrdered By: Demario Escobar on 01-22-2025 Clarity (U) Clear Clear [facility] Urine color determinationOrd ered By: Georges Escobar on 01-22-2025 Color (U) Yellow Yellow [facility] Urine glucose detectionOrder ed By: Georges Escobar on 01-22-2025 Glucose Ql (U) Normal mg/dl Normal [facility] Urine leukocyte esterase det ection by dipstickOrdered By: Georges Escobar on 01-22-2025 Leukocyte esterase Test strip Ql (U) 25 /ul High Negative [facility] Urine pHOrdered By: Georges bowles on 01-22-2025 pH (U) 5.0 [pH] 5.0 - 8.0 [facility] Urine protein measurement (m ass/volume)Ordered By: Georges Escobar on 01-22-2025 Protein (U) [Mass/Vol] 14.4 mg/dL High 0.0-12.0 [facility] Urine protein/creatinine mas s ratioOrdered By: Georges Escobar on 01-22-2025 Protein/Creatinine (U) [Mass ratio] 76 mg/g CRE 0-200 [facility] Urine sediment bacteria coun t by microscopy (number/high power field)Ordered By: Georges Escobar on 01-22-2025 Bacteria LM.HPF (Urine sed) [#/Area] 0 /[HPF] None Seen [facility] Urine specific gravity measu rementOrdered By: Georges Escobar on 01-22-2025 Specific gravity (U) [Rel density] 1.020 1.002-1.030 [facility] Urine urobilinogen measureme ntOrdered By: Georges Escobar on 01-22-2025 Urobilinogen Ql (U) Normal mg/dl Normal [facility] Vitamin D,25 Hydroxyon 01-22 Vitamin D 25-OH 42.9 ng/mL Normal 30-100 [facility] Comment on above: Order Comment: Order Date: 10/01/24 Order Info: [id number] - CMP Order Info: [id number] - LIPID Result Comment: Maribel min D Status Deficiency: <20 ng/mL (50nmol/L) Insufficiency: 20-30 ng/mL (50-75 nmol/L) Sufficiency: 30-100 ng/mL (75-250 nmol/L) Toxicity: >100 ng/mL (>250 nmol/L) Performed By: #### L 506.1001 #### [facility] [address] [place], [address] White blood cell (WBC) count Ordered By: Georges Escobar on 01-22-2025 WBC (Bld) [#/Vol] 5.2 10*3/uL 4.4-11.0 [facility] White blood cell countOrdere d By: Georges Escobar on 01-22-2025 White blood cell count 0-5 SEEN /hpf 0-5 [facility] Urinalysis, Routine (Dipstic k)on 09-24-2024 BILIRUBIN URINE Negative Normal Negative [facility] Comment on above: Order Comment: Order Date: 02/19/24 Order Info: [id number] - PTHIN Performed By: #### L 500.4050, L501.9520, L506.1000, L501.2300, L501.5200, L100.0100, L500.4100, L509.1000 #### [facility] [address] [place], [address] Clarity (U) Clear Normal Clear [facility] Comment on above: Order Comment: Order Date: 02/19/24 Order Info: [id number] - PTHIN Performed By: #### L 500.4050, L501.9520, L506.1000, L501.2300, L501.5200, L100.0100, L500.4100, L509.1000 #### [facility] [address] [place], [address] Color (U) Yellow Normal Yellow [facility] Comment on above: Order Comment: Order Date: 02/19/24 Order Info: [id number] - PTHIN Performed By: #### L 500.4050, L501.9520, L506.1000, L501.2300, L501.5200, L100.0100, L500.4100, L509.1000 #### [facility] [address] [place], [address] GLUCOSE, UR Normal Normal Normal [facility] Comment on above: Order Comment: Order Date: 02/19/24 Order Info: 0565-1 - PTHIN Performed By: #### L 500.4050, L501.9520, L506.1000, L501.2300, L501.5200, L100.0100, L500.4100, L509.1000 #### [facility] [address] [place], [address] KETONE UR Negative Normal Negative [facility] Comment on above: Order Comment: Order Date: 02/19/24 Order Info: 0565-1 - PTHIN Performed By: #### L 500.4050, L501.9520, L506.1000, L501.2300, L501.5200, L100.0100, L500.4100, L509.1000 #### [facility] [address] [place], [address] LEUK ESTERASE Negative Normal Negative [facility] Comment on above: Order Comment: Order Date: 02/19/24 Order Info: 0565-1 - PTHIN Performed By: #### L 500.4050, L501.9520, L506.1000, L501.2300, L501.5200, L100.0100, L500.4100, L509.1000 #### [facility] [address] [place], [address] Nitrite Ql (U) Negative Normal Negative [facility] Comment on above: Order Comment: Order Date: 02/19/24 Order Info: 0565-1 - PTHIN Performed By: #### L 500.4050, L501.9520, L506.1000, L501.2300, L501.5200, L100.0100, L500.4100, L509.1000 #### [facility] [address] [place], [address] OCCULT BLOOD-UR Negative Normal Negative [facility] Comment on above: Order Comment: Order Date: 02/19/24 Order Info: 0565-1 - PTHIN Performed By: #### L 500.4050, L501.9520, L506.1000, L501.2300, L501.5200, L100.0100, L500.4100, L509.1000 #### [facility] [address] [place], [address] pH UR 6.0 Normal 5.0 - 8.0 [facility] Comment on above: Order Comment: Order Date: 02/19/24 Order Info: 0565-1 - PTHIN Performed By: #### L 500.4050, L501.9520, L506.1000, L501.2300, L501.5200, L100.0100, L500.4100, L509.1000 #### [facility] [address] [place], [address] PROT DIPSTX Negative Normal Negative [facility] Comment on above: Order Comment: Order Date: 02/19/24 Order Info: 0565-1 - PTHIN Performed By: #### L 500.4050, L501.9520, L506.1000, L501.2300, L501.5200, L100.0100, L500.4100, L509.1000 #### [facility] [address] [place], [address] SP.GR. DIPSTX 1.015 Normal 1.002-1.030 [facility] Comment on above: Order Comment: Order Date: 02/19/24 Order Info: 0565-1 - PTHIN Performed By: #### L 500.4050, L501.9520, L506.1000, L501.2300, L501.5200, L100.0100, L500.4100, L509.1000 #### [facility] [address] [place], [address] UROBILI Normal Normal Normal [facility] Comment on above: Order Comment: Order Date: 02/19/24 Order Info: 0565-1 - PTHIN Performed By: #### L 500.4050, L501.9520, L506.1000, L501.2300, L501.5200, L100.0100, L500.4100, L509.1000 #### [facility] [address] [place], [address] CBC W/Diff, Automatedon 09-12-2024 Absolute Lymph 1.27 X10 3/uL Normal 0.83-4.51 [facility] Comment on above: Performed By: #### L 500.4050, L501.9520, L506.1000, L501.2300, L501.5200, L100.0100, L500.4100, L509.1000 #### [facility] [address] [place], [address] Absolute Neut 3.8 X10 3/uL Normal 2.0-7.7 [facility] Comment on above: Performed By: #### L 500.4050, L501.9520, L506.1000, L501.2300, L501.5200, L100.0100, L500.4100, L509.1000 #### [facility] [address] [place], [address] Basophils/100 WBC (Bld) 0.7 % Normal 0-1 [facility] Comment on above: Performed By: #### L 500.4050, L501.9520, L506.1000, L501.2300, L501.5200, L100.0100, L500.4100, L509.1000 #### [facility] [address] [place], [address] Eosinophils/100 WBC (Bld) 2.4 % Normal 0-5 [facility] Comment on above: Performed By: #### L 500.4050, L501.9520, L506.1000, L501.2300, L501.5200, L100.0100, L500.4100, L509.1000 #### [facility] [address], [address] Erythrocyte distribution width (RBC) [Ratio] 13.0 % Normal 11.6-14.6 [facility] Comment on above: Performed By: #### L 500.4050, L501.9520, L506.1000, L501.2300, L501.5200, L100.0100, L500.4100, L509.1000 #### [facility] [address] [place], [address] Hematocrit (Bld) [Volume fraction] 41.7 % Normal 37-47 [facility] Comment on above: Performed By: #### L 500.4050, L501.9520, L506.1000, L501.2300, L501.5200, L100.0100, L500.4100, L509.1000 #### [facility] [address], [address] Hemoglobin (Bld) [Mass/Vol] 13.1 g/dL Normal 12.0-15.0 [facility] Comment on above: Performed By: #### L 500.4050, L501.9520, L506.1000, L501.2300, L501.5200, L100.0100, L500.4100, L509.1000 #### [facility] [address] [place], [address] IG% 0.300 Normal 0.0-0.9 [facility] Comment on above: Result Comment: IG% - Immature Granulocytes (promyelocytes, myelocytes and metamyelocytes) > 1% indicates that a LEFT SHIFT is Present. Performed By: #### L 500.4050, L501.9520, L506.1000, L501.2300, L501.5200, L100.0100, L500.4100, L509.1000 #### [facility] [address] [place], [address] Lymphocytes/100 WBC (Bld) 21.9 % Normal 19-41 [facility] Comment on above: Performed By: #### L 500.4050, L501.9520, L506.1000, L501.2300, L501.5200, L100.0100, L500.4100, L509.1000 #### [facility] [address] [place], [address] MCH (RBC) [Entitic mass] 29.1 pg Normal 27.0-32.0 [facility] Comment on above: Performed By: #### L 500.4050, L501.9520, L506.1000, L501.2300, L501.5200, L100.0100, L500.4100, L509.1000 #### [facility] [address] [place], [address] MCHC (RBC) [Mass/Vol] 31.4 g/dL Low 32-36 [facility] Comment on above: Performed By: #### L 500.4050, L501.9520, L506.1000, L501.2300, L501.5200, L100.0100, L500.4100, L509.1000 #### [facility] [address] [place], [address] MCV (RBC) [Entitic vol] 92.7 fL Normal 81-99 [facility] Comment on above: Performed By: #### L 500.4050, L501.9520, L506.1000, L501.2300, L501.5200, L100.0100, L500.4100, L509.1000 #### [facility] [address] [place], [address] Monocytes/100 WBC (Bld) 9.0 % Normal 0-10 [facility] Comment on above: Performed By: #### L 500.4050, L501.9520, L506.1000, L501.2300, L501.5200, L100.0100, L500.4100, L509.1000 #### [facility] [address] [place], [address] Neutrophils/100 WBC (Bld) 65.7 % Normal 47-70 [facility] Comment on above: Performed By: #### L 500.4050, L501.9520, L506.1000, L501.2300, L501.5200, L100.0100, L500.4100, L509.1000 #### [facility] [address] [place], [address] Nucleated RBC (Bld) [#/Vol] 0 10*3/uL Normal 0-5 [facility] Comment on above: Performed By: #### L 500.4050, L501.9520, L506.1000, L501.2300, L501.5200, L100.0100, L500.4100, L509.1000 #### [facility] [address] [place], [address] Platelet mean volume (Bld) [Entitic vol] 10.9 fL Normal 6.2-12.0 [facility] Comment on above: Performed By: #### L 500.4050, L501.9520, L506.1000, L501.2300, L501.5200, L100.0100, L500.4100, L509.1000 #### [facility] [address] [place], [address] Platelets (Bld) [#/Vol] 209 10*3/uL Normal 150-450 [facility] Comment on above: Performed By: #### L 500.4050, L501.9520, L506.1000, L501.2300, L501.5200, L100.0100, L500.4100, L509.1000 #### [facility] [address] [place], [address] RBC (Bld) [#/Vol] 4.50 10*6/uL Normal 4.2-5.4 [facility] Comment on above: Performed By: #### L 500.4050, L501.9520, L506.1000, L501.2300, L501.5200, L100.0100, L500.4100, L509.1000 #### [facility] [address] [place], [address] RDW SD 44.0 fl High 35.1-43.9 [facility] Comment on above: Performed By: #### L 500.4050, L501.9520, L506.1000, L501.2300, L501.5200, L100.0100, L500.4100, L509.1000 #### [facility] [address] [place], [address] WBC (Bld) [#/Vol] 5.8 10*3/uL Normal 4.4-11.0 [facility] Comment on above: Performed By: #### L 500.4050, L501.9520, L506.1000, L501.2300, L501.5200, L100.0100, L500.4100, L509.1000 #### [facility] [address] [place], [address] Comprehensive Metabolic Prof [facility] 09-23-2024 Albumin [Mass/Vol] 3.5 g/dL Normal 3.2-5.0 [facility] Comment on above: Performed By: #### L 500.4050, L501.9520, L506.1000, L501.2300, L501.5200, L100.0100, L500.4100, L509.1000 #### [facility] [address] [place], [address] Albumin/Globulin [Mass ratio] 0.9 {ratio} Normal 0.9-2.4 [facility] Comment on above: Performed By: #### L 500.4050, L501.9520, L506.1000, L501.2300, L501.5200, L100.0100, L500.4100, L509.1000 #### [facility] [address] [place], [address] ALK P 85 U/L Normal 45-117 [facility] Comment on above: Performed By: #### L 500.4050, L501.9520, L506.1000, L501.2300, L501.5200, L100.0100, L500.4100, L509.1000 #### [facility] [address] [place], [address] ALT [Catalytic activity/Vol] 19 U/L Normal 13-56 [facility] Comment on above: Performed By: #### L 500.4050, L501.9520, L506.1000, L501.2300, L501.5200, L100.0100, L500.4100, L509.1000 #### [facility] [address] [place], [address] AST [Catalytic activity/Vol] 16 U/L Normal 15-37 [facility] Comment on above: Performed By: #### L 500.4050, L501.9520, L506.1000, L501.2300, L501.5200, L100.0100, L500.4100, L509.1000 #### [facility] [address] [place], [address] Bilirubin [Mass/Vol] 0.60 mg/dL Normal 0.20-1.00 [facility] Comment on above: Result Comment: For patients on eltrombopag therapy, use of Dimension [place] TBIL is not recommended. Performed By: #### L 500.4050, L501.9520, L506.1000, L501.2300, L501.5200, L100.0100, L500.4100, L509.1000 #### [facility] [address] [place], [address] BUN/CRE 11.2 RATIO Normal 10-20 [facility] Comment on above: Performed By: #### L 500.4050, L501.9520, L506.1000, L501.2300, L501.5200, L100.0100, L500.4100, L509.1000 #### [facility] [address] [place], [address] CA,Total 9.3 mg/dL Normal 8.5-10.1 [facility] Comment on above: Performed By: #### L 500.4050, L501.9520, L506.1000, L501.2300, L501.5200, L100.0100, L500.4100, L509.1000 #### [facility] [address] [place], [address] Chloride [Moles/Vol] 110 mmol/L High 98-107 [facility] Comment on above: Performed By: #### L 500.4050, L501.9520, L506.1000, L501.2300, L501.5200, L100.0100, L500.4100, L509.1000 #### [facility] [address] [place], [address] CO2 [Moles/Vol] 25.0 mmol/L Normal 21.0-32.0 [facility] Comment on above: Performed By: #### L 500.4050, L501.9520, L506.1000, L501.2300, L501.5200, L100.0100, L500.4100, L509.1000 #### [facility] [address] [place], [address] Creatinine [Mass/Vol] 1.25 mg/dL High 0.55-1.02 [facility] Comment on above: Result Comment: The validity of the calculated GFR GFRAA in patients over 70 years has not been determined. Clinical correlation is essential. Performed By: #### L 500.4050, L501.9520, L506.1000, L501.2300, L501.5200, L100.0100, L500.4100, L509.1000 #### [facility] [address] [place], [address] EST GFR - AA 53 mL/min Low >60 [facility] Comment on above: Result Comment: Afri can [place] GFR Calc Performed By: #### L 500.4050, L501.9520, L506.1000, L501.2300, L501.5200, L100.0100, L500.4100, L509.1000 #### [facility] [address] [place], [place], [phone] (972) GAP 6 Normal 5-15 [facility] Comment on above: Performed By: #### L 500.4050, L501.9520, L506.1000, L501.2300, L501.5200, L100.0100, L500.4100, L509.1000 #### [facility] [address] [place], [address] GFR/1.73 sq M.predicted among non-blacks MDRD (S/P/Bld) [Vol rate/Area] 44 mL/min/{1.73_m2} Low >60 [facility] Comment on above: Result Comment: Non- GFR Calc Performed By: #### L 500.4050, L501.9520, L506.1000, L501.2300, L501.5200, L100.0100, L500.4100, L509.1000 #### [facility] [address] [place], [address] Globulin (S) [Mass/Vol] 3.7 g/dL Normal 2.2-4.2 [facility] Comment on above: Performed By: #### L 500.4050, L501.9520, L506.1000, L501.2300, L501.5200, L100.0100, L500.4100, L509.1000 #### [facility] [address] [place], [address] Glucose [Mass/Vol] 91 mg/dL Normal 74-106 [facility] Comment on above: Performed By: #### L 500.4050, L501.9520, L506.1000, L501.2300, L501.5200, L100.0100, L500.4100, L509.1000 #### [facility] [address] [place], [address] Potassium [Moles/Vol] 3.9 mmol/L Normal 3.5-5.1 [facility] Comment on above: Performed By: #### L 500.4050, L501.9520, L506.1000, L501.2300, L501.5200, L100.0100, L500.4100, L509.1000 #### [facility] [address] [place], [address] Sodium [Moles/Vol] 141 mmol/L Normal 136-145 [facility] Comment on above: Performed By: #### L 500.4050, L501.9520, L506.1000, L501.2300, L501.5200, L100.0100, L500.4100, L509.1000 #### [facility] [address] [place], [address] T PROT 7.2 g/dL Normal 6.4-8.2 [facility] Comment on above: Performed By: #### L 500.4050, L501.9520, L506.1000, L501.2300, L501.5200, L100.0100, L500.4100, L509.1000 #### [facility] [address] [place], [address] Urea nitrogen [Mass/Vol] 14 mg/dL Normal 7-18 [facility] Comment on above: Performed By: #### L 500.4050, L501.9520, L506.1000, L501.2300, L501.5200, L100.0100, L500.4100, L509.1000 #### [facility] [address] [place], [address] Microalbumin,Random Urineon 09-23-2024 MICROALBUMIN,UR 13.2 mg/L Normal NO RANGE EST. [facility] Comment on above: Performed By: #### L 500.4050, L501.9520, L506.1000, L501.2300, L501.5200, L100.0100, L500.4100, L509.1000 #### [facility] [address] [place], [address] Protein+Creatinine Ratio,Uri neon 09-23-2024 PROT:CRE RATIO 72 mg/g CRE Normal 0-200 [facility] Comment on above: Performed By: #### L 500.4050, L501.9520, L506.1000, L501.2300, L501.5200, L100.0100, L500.4100, L509.1000 #### [facility] [address] [place], [address] Protein (U) [Mass/Vol] 14.8 mg/dL High <11.9 [facility] Comment on above: Performed By: #### L 500.4050, L501.9520, L506.1000, L501.2300, L501.5200, L100.0100, L500.4100, L509.1000 #### [facility] [address] [place], [address] UR CREAT 205.00 mg/dL Normal NO RANGE EST. [facility] Comment on above: Performed By: #### L 500.4050, L501.9520, L506.1000, L501.2300, L501.5200, L100.0100, L500.4100, L509.1000 #### [facility] [address] [place], [address] Vitamin D,25 Hydroxyon 09-23 Vitamin D 25-OH 44.7 ng/mL Normal [facility] Comment on above: Result Comment: Maribel min D 25(OH) Status Range Deficiency <20 ng/mL (50nmol/L) Insufficiency 20 - 30 ng/mL (50 - 75 nmol/L) Sufficiency 30 - 100 ng/mL (75 - 250 nmol/L) Toxicity >100 ng/mL (>250 nmol/L) Performed By: #### L 500.4050, L501.9520, L506.1000, L501.2300, L501.5200, L100.0100, L500.4100, L509.1000 #### [facility] [address] [place], [address] CBC W/Diff, Automatedon 02-09-2023 Absolute Lymph 1.35 X10 3/uL Normal 0.83-4.51 [facility] Comment on above: Order Comment: Order Date: 02/19/24 Order Info: [id number] - CBCD Performed By: #### L 500.4050, L501.9520, L506.1000, L501.2300, L501.5200, L100.0100, L500.4100, L509.1000 #### [facility] [address] [place], [address] Absolute Neut 3.8 X10 3/uL Normal 2.0-7.7 [facility] Comment on above: Order Comment: Order Date: 02/19/24 Order Info: [id number] - CBCD Performed By: #### L 500.4050, L501.9520, L506.1000, L501.2300, L501.5200, L100.0100, L500.4100, L509.1000 #### [facility] [address] [place], [address] Basophils/100 WBC (Bld) 0.8 % Normal 0-1 [facility] Comment on above: Order Comment: Order Date: 02/19/24 Order Info: [id number] - CBCD Performed By: #### L 500.4050, L501.9520, L506.1000, L501.2300, L501.5200, L100.0100, L500.4100, L509.1000 #### [facility] [address] [place], [address] Eosinophils/100 WBC (Bld) 2.6 % Normal 0-5 [facility] Comment on above: Order Comment: Order Date: 02/19/24 Order Info: [id number] - CBCD Performed By: #### L 500.4050, L501.9520, L506.1000, L501.2300, L501.5200, L100.0100, L500.4100, L509.1000 #### [facility] [address] [place], [address] Erythrocyte distribution width (RBC) [Ratio] 12.9 % Normal 11.6-14.6 [facility] Comment on above: Order Comment: Order Date: 02/19/24 Order Info: [id number] - CBCD Performed By: #### L 500.4050, L501.9520, L506.1000, L501.2300, L501.5200, L100.0100, L500.4100, L509.1000 #### [facility] [address] [place], [address] Hematocrit (Bld) [Volume fraction] 40.5 % Normal 37-47 [facility] Comment on above: Order Comment: Order Date: 02/19/24 Order Info: [id number] - CBCD Performed By: #### L 500.4050, L501.9520, L506.1000, L501.2300, L501.5200, L100.0100, L500.4100, L509.1000 #### [facility] [address] [place], [address] Hemoglobin (Bld) [Mass/Vol] 12.9 g/dL Normal 12.0-15.0 [facility] Comment on above: Order Comment: Order Date: 02/19/24 Order Info: 0184-1 - CBCD Performed By: #### L 500.4050, L501.9520, L506.1000, L501.2300, L501.5200, L100.0100, L500.4100, L509.1000 #### [facility] [address] [place], [address] IG% 0.200 Normal 0.0-0.9 [facility] Comment on above: Order Comment: Order Date: 02/19/24 Order Info: 0184-1 - CBCD Result Comment: IG% - Immature Granulocytes (promyelocytes, myelocytes and metamyelocytes) > 1% indicates that a LEFT SHIFT is Present. Performed By: #### L 500.4050, L501.9520, L506.1000, L501.2300, L501.5200, L100.0100, L500.4100, L509.1000 #### [facility] [address] [place], [address] Lymphocytes/100 WBC (Bld) 22.4 % Normal 19-41 [facility] Comment on above: Order Comment: Order Date: 02/19/24 Order Info: 0184-1 - CBCD Performed By: #### L 500.4050, L501.9520, L506.1000, L501.2300, L501.5200, L100.0100, L500.4100, L509.1000 #### [facility] [address] [place], [address] MCH (RBC) [Entitic mass] 29.4 pg Normal 27.0-32.0 [facility] Comment on above: Order Comment: Order Date: 02/19/24 Order Info: 0184- - CBCD Performed By: #### L 500.4050, L501.9520, L506.1000, L501.2300, L501.5200, L100.0100, L500.4100, L509.1000 #### [facility] [address] [place], [address] MCHC (RBC) [Mass/Vol] 31.9 g/dL Low 32-36 [facility] Comment on above: Order Comment: Order Date: 02/19/24 Order Info: 01811-10 - CBCD Performed By: #### L 500.4050, L501.9520, L506.1000, L501.2300, L501.5200, L100.0100, L500.4100, L509.1000 #### [facility] [address] [place], [address] MCV (RBC) [Entitic vol] 92.3 fL Normal 81-99 [facility] Comment on above: Order Comment: Order Date: 02/19/24 Order Info: 01811-10 - CBCD Performed By: #### L 500.4050, L501.9520, L506.1000, L501.2300, L501.5200, L100.0100, L500.4100, L509.1000 #### [facility] [address] [place], [address] Monocytes/100 WBC (Bld) 10.4 % High 0-10 [facility] Comment on above: Order Comment: Order Date: 02/19/24 Order Info: 0184- - CBCD Performed By: #### L 500.4050, L501.9520, L506.1000, L501.2300, L501.5200, L100.0100, L500.4100, L509.1000 #### [facility] [address] [place], [address] Neutrophils/100 WBC (Bld) 63.6 % Normal 47-70 [facility] Comment on above: Order Comment: Order Date: 02/19/24 Order Info: 0184-1 - CBCD Performed By: #### L 500.4050, L501.9520, L506.1000, L501.2300, L501.5200, L100.0100, L500.4100, L509.1000 #### [facility] [address] [place], [address] Nucleated RBC (Bld) [#/Vol] 0 10*3/uL Normal 0-5 [facility] Comment on above: Order Comment: Order Date: 02/19/24 Order Info: 0184- - CBCD Performed By: #### L 500.4050, L501.9520, L506.1000, L501.2300, L501.5200, L100.0100, L500.4100, L509.1000 #### [facility] [address] [place], [address] Platelet mean volume (Bld) [Entitic vol] 10.7 fL Normal 6.2-12.0 [facility] Comment on above: Order Comment: Order Date: 02/19/24 Order Info: 0184- - CBCD Performed By: #### L 500.4050, L501.9520, L506.1000, L501.2300, L501.5200, L100.0100, L500.4100, L509.1000 #### [facility] [address] [place], [address] Platelets (Bld) [#/Vol] 239 10*3/uL Normal 150-450 [facility] Comment on above: Order Comment: Order Date: 02/19/24 Order Info: 0184-1 - CBCD Performed By: #### L 500.4050, L501.9520, L506.1000, L501.2300, L501.5200, L100.0100, L500.4100, L509.1000 #### [facility] [address] [place], [address] RBC (Bld) [#/Vol] 4.39 10*6/uL Normal 4.2-5.4 [facility] Comment on above: Order Comment: Order Date: 02/19/24 Order Info: 0184- - CBCD Performed By: #### L 500.4050, L501.9520, L506.1000, L501.2300, L501.5200, L100.0100, L500.4100, L509.1000 #### [facility] [address] [place], [address] RDW SD 43.8 fl Normal 35.1-43.9 [facility] Comment on above: Order Comment: Order Date: 02/19/24 Order Info: 0184- - CBCD Performed By: #### L 500.4050, L501.9520, L506.1000, L501.2300, L501.5200, L100.0100, L500.4100, L509.1000 #### [facility] [address] [place], [address] WBC (Bld) [#/Vol] 6.0 10*3/uL Normal 4.4-11.0 [facility] Comment on above: Order Comment: Order Date: 02/19/24 Order Info: 0184- - CBCD Performed By: #### L 500.4050, L501.9520, L506.1000, L501.2300, L501.5200, L100.0100, L500.4100, L509.1000 #### [facility] [address] [place], [place], [phone] Comprehensive Metabolic Prof rion 02-19-2024 Albumin [Mass/Vol] 3.5 g/dL Normal 3.2-5.0 [facility] Comment on above: Order Comment: Order Date: 02/19/24 Order Info: 0786-1 - CMP Order Info: [id number] - LIPID Order Info: [id number] - PHOS Order Info: [id number] - MG Order Info: 6-3 - TSH Performed By: #### L 500.4050, L501.9520, L506.1000, L501.2300, L501.5200, L100.0100, L500.4100, L509.1000 #### [facility] [address] [place], [address] Albumin/Globulin [Mass ratio] 0.9 {ratio} Normal 0.9-2.4 [facility] Comment on above: Order Comment: Order Date: 02/19/24 Order Info: 785- - CMP Order Info: - LIPID Order Info: [id number] - PHOS Order Info: [id number] - MG Order Info: 3015-3 - TSH Performed By: #### L 500.4050, L501.9520, L506.1000, L501.2300, L501.5200, L100.0100, L500.4100, L509.1000 #### [facility] [address] [place], [address] ALK P 88 U/L Normal 45-117 [facility] Comment on above: Order Comment: Order Date: 02/19/24 Order Info: [id number] - CMP Order Info: - LIPID Order Info: [id number] - PHOS Order Info: [id number] - MG Order Info: 301-3 - TSH Performed By: #### L 500.4050, L501.9520, L506.1000, L501.2300, L501.5200, L100.0100, L500.4100, L509.1000 #### [facility] [address] [place], [address] ALT [Catalytic activity/Vol] 22 U/L Normal 13-56 [facility] Comment on above: Order Comment: Order Date: 02/19/24 Order Info: 785- - CMP Order Info: [id number] - LIPID Order Info: [id number] - PHOS Order Info: [id number] - MG Order Info: 3015-3 - TSH Performed By: #### L 500.4050, L501.9520, L506.1000, L501.2300, L501.5200, L100.0100, L500.4100, L509.1000 #### [facility] [address] [place], [place], [id number] AST [Catalytic activity/Vol] 21 U/L Normal 15-37 [facility] Comment on above: Order Comment: Order Date: 02/19/24 Order Info: [id number] - CMP Order Info: [id number] - LIPID Order Info: 2776-1 - PHOS Order Info: [id number] - MG Order Info: 3015-3 - TSH Performed By: #### L 500.4050, L501.9520, L506.1000, L501.2300, L501.5200, L100.0100, L500.4100, L509.1000 #### [facility] [address] [place], [place], [phone] Bilirubin [Mass/Vol] 0.40 mg/dL Normal 0.20-1.00 [facility] Comment on above: Order Comment: Order Date: 02/19/24 Order Info: 0786-1 - CMP Order Info: [id number] - LIPID Order Info: 2777-1 - PHOS Order Info: [id number] - MG Order Info: 3015-3 - TSH Result Comment: For patients on eltrombopag therapy, use of Dimension [place] TBIL is not recommended. Performed By: #### L 500.4050, L501.9520, L506.1000, L501.2300, L501.5200, L100.0100, L500.4100, L509.1000 #### [facility] [address] [place], [address] BUN/CRE 10.3 RATIO Normal 10-20 [facility] Comment on above: Order Comment: Order Date: 02/19/24 Order Info: 0786-1 - CMP Order Info: - LIPID Order Info: [id number] - PHOS Order Info: [id number] - MG Order Info: 3016-3 - TSH Performed By: #### L 500.4050, L501.9520, L506.1000, L501.2300, L501.5200, L100.0100, L500.4100, L509.1000 #### [facility] [address] [place], [address] CA,Total 9.5 mg/dL Normal 8.5-10.1 [facility] Comment on above: Order Comment: Order Date: 02/19/24 Order Info: 785- - CMP Order Info: - LIPID Order Info: [id number] - PHOS Order Info: [id number] - MG Order Info: 3016-3 - TSH Performed By: #### L 500.4050, L501.9520, L506.1000, L501.2300, L501.5200, L100.0100, L500.4100, L509.1000 #### [facility] [address] [place], [address] Chloride [Moles/Vol] 105 mmol/L Normal 98-107 [facility] Comment on above: Order Comment: Order Date: 02/19/24 Order Info: [id number] - CMP Order Info: - LIPID Order Info: [id number] - PHOS Order Info: [id number] - MG Order Info: 3016-3 - TSH Performed By: #### L 500.4050, L501.9520, L506.1000, L501.2300, L501.5200, L100.0100, L500.4100, L509.1000 #### [facility] [address] [place], [address] CO2 [Moles/Vol] 26.0 mmol/L Normal 21.0-32.0 [facility] Comment on above: Order Comment: Order Date: 02/19/24 Order Info: 785-1 - CMP Order Info: - LIPID Order Info: [id number] - PHOS Order Info: [id number] - MG Order Info: 3015-10 - TSH Performed By: #### L 500.4050, L501.9520, L506.1000, L501.2300, L501.5200, L100.0100, L500.4100, L509.1000 #### [facility] [address] [place], [place], [id number] Creatinine [Mass/Vol] 1.16 mg/dL High 0.55-1.02 [facility] Comment on above: Order Comment: Order Date: 02/19/24 Order Info: [id number] - CMP Order Info: - LIPID Order Info: [id number] - PHOS Order Info: [id number] - MG Order Info: 3015-10 - TSH Result Comment: The validity of the calculated GFR GFRAA in patients over 70 years has not been determined. Clinical correlation is essential. Performed By: #### L 500.4050, L501.9520, L506.1000, L501.2300, L501.5200, L100.0100, L500.4100, L509.1000 #### [facility] [address] [place], [address] EST GFR - AA 58 mL/min Low >60 [facility] Comment on above: Order Comment: Order Date: 02/19/24 Order Info: 0786 - CMP Order Info: - LIPID Order Info: [id number] - PHOS Order Info: [id number] - MG Order Info: 3 - TSH Result Comment: Afri can [place] GFR Calc Performed By: #### L 500.4050, L501.9520, L506.1000, L501.2300, L501.5200, L100.0100, L500.4100, L509.1000 #### [facility] [address] [place], [address] GAP 6 Normal 5-15 [facility] Comment on above: Order Comment: Order Date: 02/19/24 Order Info: 785- - CMP Order Info: [id number] - LIPID Order Info: [id number] - PHOS Order Info: [id number] - MG Order Info: 3016-3 - TSH Performed By: #### L 500.4050, L501.9520, L506.1000, L501.2300, L501.5200, L100.0100, L500.4100, L509.1000 #### [facility] [address] [place], [place], [phone] (390) GFR/1.73 sq M.predicted among non-blacks MDRD (S/P/Bld) [Vol rate/Area] 48 mL/min/{1.73_m2} Low >60 [facility] Comment on above: Order Comment: Order Date: 02/19/24 Order Info: [id number] - CMP Order Info: - LIPID Order Info: [id number] - PHOS Order Info: [id number] - MG Order Info: 3015-3 - TSH Result Comment: Non- GFR Calc Performed By: #### L 500.4050, L501.9520, L506.1000, L501.2300, L501.5200, L100.0100, L500.4100, L509.1000 #### [facility] [address] [place], [place], [phone] ([address]) Globulin (S) [Mass/Vol] 3.9 g/dL Normal 2.2-4.2 [facility] Comment on above: Order Comment: Order Date: 02/19/24 Order Info: [id number] - CMP Order Info: [id number] - LIPID Order Info: [id number] - PHOS Order Info: [id number] - MG Order Info: 3016-3 - TSH Performed By: #### L 500.4050, L501.9520, L506.1000, L501.2300, L501.5200, L100.0100, L500.4100, L509.1000 #### [facility] [address] [place], [address] Glucose [Mass/Vol] 92 mg/dL Normal 74-106 [facility] Comment on above: Order Comment: Order Date: 02/19/24 Order Info: 785-1 - CMP Order Info: [id number] - LIPID Order Info: [id number] - PHOS Order Info: [id number] - MG Order Info: 3016-3 - TSH Performed By: #### L 500.4050, L501.9520, L506.1000, L501.2300, L501.5200, L100.0100, L500.4100, L509.1000 #### [facility] [address] [place], [place], [phone] (260) Potassium [Moles/Vol] 4.3 mmol/L Normal 3.5-5.1 [facility] Comment on above: Order Comment: Order Date: 02/19/24 Order Info: [id number] - CMP Order Info: - LIPID Order Info: 7- - PHOS Order Info: [id number] - MG Order Info: 3016-3 - TSH Performed By: #### L 500.4050, L501.9520, L506.1000, L501.2300, L501.5200, L100.0100, L500.4100, L509.1000 #### [facility] [address] [place], [place], [phone] Sodium [Moles/Vol] 137 mmol/L Normal 136-145 [facility] Comment on above: Order Comment: Order Date: 02/19/24 Order Info: 785-08 - CMP Order Info: [id number] - LIPID Order Info: [id number] - PHOS Order Info: [id number] - MG Order Info: 3016-3 - TSH Performed By: #### L 500.4050, L501.9520, L506.1000, L501.2300, L501.5200, L100.0100, L500.4100, L509.1000 #### [facility] [address] [place], [place], [address] T PROT 7.4 g/dL Normal 6.4-8.2 [facility] Comment on above: Order Comment: Order Date: 02/19/24 Order Info: 785- - CMP Order Info: [id number] - LIPID Order Info: [id number] - PHOS Order Info: [id number] - MG Order Info: 3016-3 - TSH Performed By: #### L 500.4050, L501.9520, L506.1000, L501.2300, L501.5200, L100.0100, L500.4100, L509.1000 #### [facility] [address] [place], [address] Urea nitrogen [Mass/Vol] 12 mg/dL Normal 7-18 [facility] Comment on above: Order Comment: Order Date: 02/19/24 Order Info: [id number] - CMP Order Info: - LIPID Order Info: [id number] - PHOS Order Info: [id number] - MG Order Info: 301-3 - TSH Performed By: #### L 500.4050, L501.9520, L506.1000, L501.2300, L501.5200, L100.0100, L500.4100, L509.1000 #### [facility] [address] [place], [place], [id number] Lipid Profileon 02-19-2024 Cholesterol [Mass/Vol] 225 mg/dL High 200 [facility] Comment on above: Order Comment: Order Date: 02/19/24 Order Info: [id number] - CMP Order Info: - LIPID Order Info: [id number] - PHOS Order Info: [id number] - MG Order Info: 3016-3 - TSH Result Comment: <200 mg/dL Desirable 200-240 mg/dL Borderline >240 mg/dL High Risk Performed By: #### L 500.4050, L501.9520, L506.1000, L501.2300, L501.5200, L100.0100, L500.4100, L509.1000 #### [facility] [address] [place], [place], [phone] Cholesterol in HDL [Mass/Vol] 56 mg/dL Normal [facility] Comment on above: Order Comment: Order Date: 02/19/24 Order Info: [id number] - CMP Order Info: - LIPID Order Info: [id number]- - PHOS Order Info: [id number] - MG Order Info: 3016-3 - TSH Result Comment: The drugs N-Acetylcysteine and Metamizole may falsely depress this assay. Reference Range HDL <40 mg/dL Low HDL Cholesterol HDL >or= 60 mg/dL High HDL Cholesterol Performed By: #### L 500.4050, L501.9520, L506.1000, L501.2300, L501.5200, L100.0100, L500.4100, L509.1000 #### [facility] [address] [place], [address] Cholesterol in LDL [Mass/Vol] 138 mg/dL High 0-130 [facility] Comment on above: Order Comment: Order Date: 02/19/24 Order Info: [id number] - CMP Order Info: - LIPID Order Info: [id number] - PHOS Order Info: [id number] - MG Order Info: 3016-3 - TSH Performed By: #### L 500.4050, L501.9520, L506.1000, L501.2300, L501.5200, L100.0100, L500.4100, L509.1000 #### [facility] [address] [place], [address] Cholesterol in VLDL [Mass/Vol] 31 mg/dL Normal 5-40 [facility] Comment on above: Order Comment: Order Date: 02/19/24 Order Info: [id number] - CMP Order Info: - LIPID Order Info: [id number] - PHOS Order Info: [id number] - MG Order Info: [id number] - TSH Performed By: #### L 500.4050, L501.9520, L506.1000, L501.2300, L501.5200, L100.0100, L500.4100, L509.1000 #### [facility] [address] [place], [address] Triglyceride [Mass/Vol] 156 mg/dL Normal [facility] Comment on above: Order Comment: Order Date: 02/19/24 Order Info: [id number] - CMP Order Info: [id number] - LIPID Order Info: [id number] - PHOS Order Info: [id number] - MG Order Info: [id number] - TSH Result Comment: The drugs N-Acetylcysteine and Metamizole may falsely depress this assay. Serum Triglycerides Reference Interval Normal <150 mg/dL Borderline high 150 - 199 mg/dL High 200 - 499 mg/dL Very High > or = 500 mg/dL Performed By: #### L 500.4050, [id number], L506.1000, L501.2300, L501.5200, L100.0100, L500.4100, L509.1000 #### [facility] [address] [place], [address] Magnesiumon 02-19-2024 Magnesium [Mass/Vol] 2.3 mg/dL Normal 1.6-2.6 [facility] Comment on above: Order Comment: Order Date: 02/19/24 Order Info: [id number] - CMP Order Info: [id number] - LIPID Order Info: [id number] - PHOS Order Info: [id number] - MG Order Info: [id number] - TSH Performed By: #### L 500.4050, [id number], L506.1000, L501.2300, L501.5200, L100.0100, L500.4100, L509.1000 #### [facility] [address] [place], [address] PTHINon 02-19-2024 PTH 52.6 pg/mL Normal 18.4-80.1 [facility] Comment on above: Order Comment: Order Date: 02/19/24 Order Info: [id number] - PTHIN Performed By: #### L 500.4050, [id number], L506.1000, L501.2300, L501.5200, L100.0100, L500.4100, L509.1000 #### [facility] [address] [place], [address] Phosphoruson 02-19-2024 Phosphate [Mass/Vol] 3.8 mg/dL Normal 2.5-4.9 [facility] Comment on above: Order Comment: Order Date: 02/19/24 Order Info: [id number] - CMP Order Info: [id number] - LIPID Order Info: [id number] - PHOS Order Info: [id number] - MG Order Info: [id number] - TSH Performed By: #### L 500.4050, [id number], L506.1000, L501.2300, L501.5200, L100.0100, L500.4100, L509.1000 #### [facility] [address] [place], [address] Protein+Creatinine Ratio,Uri neon 02-19-2024 PROT:CRE RATIO 109 mg/g CRE Normal 0-200 [facility] Comment on above: Performed By: #### L 500.4050, [id number], L506.1000, L501.2300, L501.5200, L100.0100, L500.4100, L509.1000 #### [facility] [address] [place], [address] Protein (U) [Mass/Vol] 7.3 mg/dL Normal <11.9 [facility] Comment on above: Performed By: #### L 500.4050, [id number], L506.1000, L501.2300, L501.5200, L100.0100, L500.4100, L509.1000 #### [facility] [address] [place], [address] UR CREAT 66.80 mg/dL Normal NO RANGE EST. [facility] Comment on above: Performed By: #### L 500.4050, [id number], L506.1000, L501.2300, L501.5200, L100.0100, L500.4100, L509.1000 #### [facility] [address] [place], [address] Thyroid Stim Hormone (TSH)on 02-19-2024 TSH 1.18 uIU/mL Normal 0.358-3.74 [facility] Comment on above: Order Comment: Order Date: 02/19/24 Order Info: [id number] - CMP Order Info: [id number] - LIPID Order Info: [id number] - PHOS Order Info: [id number] - MG Order Info: [id number] - TSH Performed By: #### L 500.4050, [id number], L506.1000, L501.2300, L501.5200, L100.0100, L500.4100, L509.1000 #### [facility] [address] [place], [address] Urinalysis, Completeon 02-18 BACTERIA 1+ /hpf Normal None Seen [facility] Comment on above: Order Comment: CLEAN CATCH Performed By: #### L 501.0900, L400.0001 #### [facility] [address] [place], [address] EPI,SQUAMOUS 0-5 SEEN Normal 5-10 [facility] Comment on above: Order Comment: CLEAN CATCH Performed By: #### L 501.0900, L400.0001 #### [facility] [address] [place], [address] WBC 0-5 SEEN Normal 0-5 [facility] Comment on above: Order Comment: CLEAN CATCH Performed By: #### L 501.0900, L400.0001 #### [facility] [address] [place], [address] Mucus Ql (Urine sed) [address] [facility] Comment on above: Order Comment: CLEAN CATCH Performed By: #### L 501.0900, L400.0001 #### [facility] [address] [place], [address] RBC 0 SEEN Normal 0-5 [facility] Comment on above: Order Comment: CLEAN CATCH Performed By: #### L 501.0900, L400.0001 #### [facility] [address] [place], [address] Vitamin D,25 Hydroxyon 02-18 Vitamin D 25-OH 46.2 ng/mL Normal [facility] Comment on above: Order Comment: Order Date: 02/19/24 Order Info: [id number] - VITD25 Result Comment: Maribel min D 25(OH) Status Range Deficiency <20 ng/mL (50nmol/L) Insufficiency 20 - 30 ng/mL (50 - 75 nmol/L) Sufficiency 30 - 100 ng/mL (75 - 250 nmol/L) Toxicity >100 ng/mL (>250 nmol/L) Performed By: #### L 500.4050, [id number], L506.1000, L501.2300, L501.5200, L100.0100, L500.4100, L509.1000 #### [facility] [address] [place], [address] Absolute lymphocyte countOrd ered By: Georges Escobar on 10-14-2023 Lymphocytes Auto (Unsp spec) [#/Vol] 1.36 10*3/uL 0.83-4.51 [facility] Automated lymphocyte count a s percentage of total leukocytesOrdered By: Georges Escobar on 10-14-2023 Lymphocytes/100 WBC Auto (Unsp spec) 24.1 % 19-41 [facility] Basophil percentageOrdered B y: Georges Escobar on 10-14-2023 Basophil percentage 0-5 SEEN /hpf 0-5 [facility] Basophil percentage 3.8 mg/dL 2.5-4.9 [facility] Basophils/100 WBC (Bld) 0.9 % 0-1 [facility] Bilirubin [Mass/Vol] 0.50 mg/dL 0.20-1.00 [facility] Comment on above: For patients on eltr ombopag therapy, use of Dimension [place] TBIL is not recommended. Chloride [Moles/Vol] 109 mmol/L 98-107 [facility] Cholesterol [Mass/Vol] 217 mg/dL <200 [facility] Comment on above: <200 mg/dL Desirable 200-240 mg/dL Borderline >240 mg/dL High Risk Eosinophils/100 WBC (Bld) 3.0 % 0-5 [facility] Glucose [Mass/Vol] 89 mg/dL 74-106 [facility] Hemoglobin (Bld) [Mass/Vol] 13.0 g/dL 12.0-15.0 [facility] Monocytes/100 WBC (Bld) 9.4 % 0-10 [facility] Neutrophils (Bld) [#/Vol] 3.5 10*3/uL 2.0-7.7 [facility] Neutrophils/100 WBC (Bld) 62.2 % 47-70 [facility] Potassium [Moles/Vol] 4.0 mmol/L 3.5-5.1 [facility] Protein [Mass/Vol] 7.2 g/dL 6.4-8.2 [facility] Sodium [Moles/Vol] 140 mmol/L 136-145 [facility] Triglyceride [Mass/Vol] 115 mg/dL <199 [facility] Comment on above: The drugs N-Acetylcy steine and Metamizole may falsely depress this assay.Serum Triglycerides Reference Interval Normal <150 mg/dL Borderline high 150 - 199 mg/dL High 200 - 499 mg/dL Very High > or = 500 mg/dL WBC (Bld) [#/Vol] 5.6 10*3/uL 4.4-11.0 [facility] Bilirubin Test strip Ql (U)O rdered By: Georges Escobar on 10-14-2023 Bilirubin Ql (U) Negative Negative [facility] Determination of erythrocyte mean corpuscular volume (MCV)Ordered By: Georges Escobar on 10-14-2023 MCV (RBC) [Entitic vol] 92.9 fL 81-99 [facility] Erythrocyte distribution wid th ratioOrdered By: Georges Escobar on 10-14-2023 Erythrocyte distribution width (RBC) [Ratio] 12.9 % 11.6-14.6 [facility] Erythrocyte distribution wid th standard deviationOrdered By: Georges Escobar on 10-14-2023 Erythrocyte distribution width (RBC) [Entitic vol] 44.0 fL 35.1-43.9 [facility] Hematocrit Auto (Bld) [Volum e fraction]Ordered By: Georges Escobar on 10-14-2023 Hematocrit (Bld) [Volume fraction] 40.4 % 37-47 [facility] Immature granulocytes/100 WB C Auto (Bld)Ordered By: Georges Escobar on 10-14-2023 Immature granulocytes/100 WBC (Bld) 0.400 % 0.0-0.9 [facility] Comment on above: IG% - Immature Granu locytes (promyelocytes, myelocytes and metamyelocytes) > 1% indicates that a LEFT SHIFT is Present. Ketones Test strip Ql (U)Ord ered By: Georges Escobar on 10-14-2023 Ketones Ql (U) 5 mg/dl Negative [facility] - Chemistry and C hemistry - challengeOrdered By: Georges Escobar on 10-14-2023 Albumin/Globulin [Mass ratio] 0.9 {ratio} 0.9-2.4 [facility] ALP [Catalytic activity/Vol] 88 U/L 45-117 [facility] ALT [Catalytic activity/Vol] 19 U/L 13-56 [facility] Cholesterol in HDL [Mass/Vol] 60 mg/dL >40 [facility] Comment on above: The drugs N-Acetylcy steine and Metamizole may falsely depress this assay. Reference Range HDL <40 mg/dL Low HDL Cholesterol HDL >or= 60 mg/dL High HDL Cholesterol Cholesterol in LDL [Mass/Vol] 134 mg/dL 0-130 [facility] CO2 [Moles/Vol] 28.0 mmol/L 21.0-32.0 [facility] Globulin (S) [Mass/Vol] 3.8 g/dL 2.2-4.2 [facility] Urea nitrogen/Creatinine [Mass ratio] 11.6 mg/mg 10-20 [facility] - Hematology and Cell countsOrdered By: Georges Escobar on 10-14-2023 MCH (RBC) [Entitic mass] 29.9 pg 27.0-32.0 [facility] MCHC (RBC) [Mass/Vol] 32.2 g/dL 32-36 [facility] Nucleated RBC/100 WBC (Bld) [Ratio] 0 % 0-5 [facility] Platelet mean volume (Bld) [Entitic vol] 10.8 fL 6.2-12.0 [facility] Platelets (Bld) [#/Vol] 230 10*3/uL 150-450 [facility] Mucus LM Ql (Urine sed)Order ed By: Georges Escobar on 10-14-2023 Mucus Ql (Urine sed) 0 SEEN /hpf [facility] Nitrite Test strip Ql (U)Ord ered By: Georges Escobar on 10-14-2023 Nitrite Ql (U) Negative Negative [facility] No Panel InformationOrdered By: Georges Escobar on 10-14-2023 Urine RBC 0 SEEN /hpf 0-5 [facility] Estimated GFR (MDRD) Amer 55 mL/min >60 [facility] Comment on above: GFR Calc Estimated GFR (MDRD) Non-Af Amer 45 mL/min >60 [facility] Comment on above: Non- GFR Calc Parathyroid Hormone (Intact) 45.7 pg/mL 18.4-80.1 [facility] Vitamin D 25-Hydroxy 46.6 ng/mL [facility] Comment on above: Vitamin D 25(OH) Sta tus Range Deficiency <20 ng/mL (50nmol/L) Insufficiency 20 - 30 ng/mL (50 - 75 nmol/L) Sufficiency 30 - 100 ng/mL (75 - 250 nmol/L) Toxicity >100 ng/mL (>250 nmol/L) VLDL Cholesterol 23 mg/dL 5-40 [facility] Protein Test strip Ql (U)Ord ered By: Georges Escobar on 10-14-2023 Protein Ql (U) 15 mg/dl Negative [facility] RBC Auto (Bld) [#/Vol]Ordere d By: Georges Escobar on 10-14-2023 RBC (Bld) [#/Vol] 4.35 10*6/uL 4.2-5.4 [facility] Serum or plasma calcium jose urement (mass/volume)Ordered By: Georges Escobar on 10-14-2023 Calcium [Mass/Vol] 9.6 mg/dL 8.5-10.1 [facility] Serum or plasma creatinine m easurement (mass/volume)Ordered By: Georges Escobar on 10-14-2023 Creatinine [Mass/Vol] 1.21 mg/dL 0.55-1.02 [facility] Comment on above: The validity of the calculated GFR & GFRAA in patients over 70 years has not been determined. Clinical correlation is essential. Serum or plasma thyroid stim ulating hormone (TSH) measurement (units/volume)Ordered By: Georges Escobar on 10-14-2023 TSH Qn 1.59 uIU/mL 0.358-3.74 [facility] Serum or plasma urea nitroge n measurement (mass/volume)Ordered By: Georges Escobar on 10-14-2023 Urea nitrogen [Mass/Vol] 14 mg/dL 7-18 [facility] Squamous epithelial cells de tection in urine sediment by light microscopyOrdered By: Georges Escobar on 10-14-2023 Epithelial cells.squamous LM Ql (Urine sed) 0-5 SEEN /hpf 5-10 [facility] Thin prep Papanicolaou smear with manual screeningOrdered By: Georges Escobar on 10-14-2023 Protein (U) [Mass/Vol] 13.4 mg/dL 0.0-11.8 [facility] Thin prep Papanicolaou smear with manual screening 3.4 g/dL 3.2-5.0 [facility] Thin prep Papanicolaou smear with manual screening 16 U/L 15-37 [facility] Thin prep Papanicolaou smear with manual screening 3 5-15 [facility] Urine blood detectionOrdered By: Georges Escobar on 10-14-2023 RBC Ql (U) Negative Negative [facility] Urine clarityOrdered By: Demario Escobar on 10-14-2023 Clarity (U) Sl. Cloudy Clear [facility] Urine color determinationOrd ered By: Georges Escobar on 10-14-2023 Color (U) Yellow Yellow [facility] Urine creatinine measurement (mass/volume)Ordered By: Georges Escobar on 10-14-2023 Creatinine (U) [Mass/Vol] 149.00 mg/dL NO RANGE EST. [facility] Urine glucose detectionOrder ed By: Georges Escobar on 10-14-2023 Glucose Ql (U) Normal mg/dl Normal [facility] Urine leukocyte esterase det ection by dipstickOrdered By: Georges Escobar on 10-14-2023 Leukocyte esterase Test strip Ql (U) 25 /ul Negative [facility] Urine pHOrdered By: Georges bowles on 10-14-2023 pH (U) 6.5 [pH] 5.0 - 8.0 [facility] Urine protein/creatinine mas s ratioOrdered By: Georges Escobar on 10-14-2023 Protein/Creatinine (U) [Mass ratio] 90 mg/g CRE 0-200 [facility] Urine sediment bacteria coun t by microscopy (number/high power field)Ordered By: Georges Escobar on 10-14-2023 Bacteria LM.HPF (Urine sed) [#/Area] 0 /[HPF] None Seen [facility] Urine specific gravity measu rementOrdered By: Georges Escobar on 10-14-2023 Specific gravity (U) [Rel density] 1.010 1.002-1.030 [facility] Urine urobilinogen measureme ntOrdered By: Georges Escobar on 10-14-2023 Urobilinogen Ql (U) Normal mg/dl Normal [facility] Absolute lymphocyte countOrd ered By: Georges Escobar on 06-14-2023 Lymphocytes Auto (Unsp spec) [#/Vol] 1.15 10*3/uL 0.83-4.51 [facility] Basophil percentageOrdered B y: Georges Escobar on 06-14-2023 Basophil percentage 3.1 mg/dL 2.5-4.9 [facility] Basophils/100 WBC (Bld) 0.5 % 0-1 [facility] Bilirubin [Mass/Vol] 0.50 mg/dL 0.20-1.00 [facility] Comment on above: For patients on eltr ombopag therapy, use of Dimension [place] TBIL is not recommended. Chloride [Moles/Vol] 104 mmol/L 98-107 [facility] Eosinophils/100 WBC (Bld) 2.3 % 0-5 [facility] Glucose [Mass/Vol] 93 mg/dL 74-106 [facility] Neutrophils (Bld) [#/Vol] 3.7 10*3/uL 2.0-7.7 [facility] Neutrophils/100 WBC (Bld) 65.8 % 47-70 [facility] Potassium [Moles/Vol] 3.7 mmol/L 3.5-5.1 [facility] Protein [Mass/Vol] 7.6 g/dL 6.4-8.2 [facility] Sodium [Moles/Vol] 136 mmol/L 136-145 [facility] WBC (Bld) [#/Vol] 5.6 10*3/uL 4.4-11.0 [facility] Blood erythrocytes count (nu mber/volume)Ordered By: Georges Escobar on 06-14-2023 RBC (Bld) [#/Vol] 4.47 10*6/uL 4.2-5.4 [facility] Blood hemoglobin measurement (mass/volume)Ordered By: Georges Escobar on 06-14-2023 Hemoglobin (Bld) [Mass/Vol] 13.3 g/dL 12.0-15.0 [facility] Blood lymphocytes/100 leukoc ytesOrdered By: Georges Escobar on 06-14-2023 Lymphocytes/100 WBC (Bld) 20.5 % 19-41 [facility] Blood monocytes/100 leukocyt esOrdered By: Georges Escobar on 06-14-2023 Monocytes/100 WBC (Bld) 10.4 % 0-10 [facility] Blood platelet mean volumeOr dered By: Georges Escobar on 06-14-2023 Platelet mean volume (Bld) [Entitic vol] 10.6 fL 6.2-12.0 [facility] Determination of erythrocyte mean corpuscular volume (MCV)Ordered By: Georges Escobar on 06-14-2023 MCV (RBC) [Entitic vol] 94.6 fL 81-99 [facility] Hematocrit Auto (Bld) [Volum e fraction]Ordered By: Georges Escobar on 06-14-2023 Hematocrit (Bld) [Volume fraction] 42.3 % 37-47 [facility] - Chemistry and C hemistry - challengeOrdered By: Georges Escobar on 06-14-2023 ALP [Catalytic activity/Vol] 83 U/L 45-117 [facility] ALT [Catalytic activity/Vol] 30 U/L 13-56 [facility] CO2 [Moles/Vol] 27.0 mmol/L 21.0-32.0 [facility] Globulin (S) [Mass/Vol] 4.2 g/dL 2.2-4.2 [facility] Urea nitrogen/Creatinine [Mass ratio] 9.1 mg/mg 10-20 [facility] - Hematology and Cell countsOrdered By: Georges Escobar on 06-14-2023 Erythrocyte distribution width (RBC) [Entitic vol] 46.5 fL 35.1-43.9 [facility] Erythrocyte distribution width (RBC) [Ratio] 13.2 % 11.6-14.6 [facility] Immature granulocytes/100 WBC (Bld) 0.500 % 0.0-0.9 [facility] Comment on above: IG% - Immature Granu locytes (promyelocytes, myelocytes and metamyelocytes) > 1% indicates that a LEFT SHIFT is Present. MCH (RBC) [Entitic mass] 29.8 pg 27.0-32.0 [facility] Nucleated RBC/100 WBC (Bld) [Ratio] 0 % 0-5 [facility] MCHC Auto (RBC) [Mass/Vol]Or dered By: Georges Escobar on 06-14-2023 MCHC (RBC) [Mass/Vol] 31.4 g/dL 32-36 [facility] No Panel InformationOrdered By: Georges Escobar on 06-14-2023 Estimated GFR (MDRD) Amer 50 mL/min >60 [facility] Comment on above: GFR Calc Estimated GFR (MDRD) Non-Af Amer 41 mL/min >60 [facility] Comment on above: Non- GFR Calc Parathyroid Hormone (Intact) 69.4 pg/mL 18.4-80.1 [facility] Thyroid Stimulating Hormone (TSH) 1.60 uIU/mL 0.358-3.74 [facility] Vitamin D 25-Hydroxy 64.6 ng/mL [facility] Comment on above: Vitamin D 25(OH) Sta tus Range Deficiency <20 ng/mL (50nmol/L) Insufficiency 20 - 30 ng/mL (50 - 75 nmol/L) Sufficiency 30 - 100 ng/mL (75 - 250 nmol/L) Toxicity >100 ng/mL (>250 nmol/L) Platelets bldOrdered By: Demario Escobar on 06-14-2023 Platelets (Bld) [#/Vol] 257 10*3/uL 150-450 [facility] Serum or plasma albumin jose urement (mass/volume)Ordered By: Georges Escobar on 06-14-2023 Albumin [Mass/Vol] 3.4 g/dL 3.2-5.0 [facility] Serum or plasma albumin/glob ulin mass ratioOrdered By: Georges Escobar on 06-14-2023 Albumin/Globulin [Mass ratio] 0.8 {ratio} 0.9-2.4 [facility] Serum or plasma calcium jose urement (mass/volume)Ordered By: Georges Escobar on 06-14-2023 Calcium [Mass/Vol] 8.8 mg/dL 8.5-10.1 [facility] Serum or plasma creatinine m easurement (mass/volume)Ordered By: Georges Escobar on 06-14-2023 Creatinine [Mass/Vol] 1.32 mg/dL 0.55-1.02 [facility] Comment on above: The validity of the calculated GFR & GFRAA in patients over 70 years has not been determined. Clinical correlation is essential. Serum or plasma urea nitroge n measurement (mass/volume)Ordered By: Georges Escobar on 06-14-2023 Urea nitrogen [Mass/Vol] 12 mg/dL 7-18 [facility] Thin prep Papanicolaou smear with manual screeningOrdered By: Georges Escobar on 06-14-2023 Thin prep Papanicolaou smear with manual screening 22 U/L 15-37 [facility] Thin prep Papanicolaou smear with manual screening 5 5-15 [facility] Absolute lymphocyte countOrd ered By: Dr. Escobar on 01-14-2023 Lymphocytes Auto (Unsp spec) [#/Vol] 1.19 10*3/uL 0.83-4.51 [facility] Basophil percentageOrdered B y: Dr. Escobar on 01-14-2023 Basophil percentage 0-5 SEEN /hpf 0-5 [facility] Basophil percentage 3.3 mg/dL 2.5-4.9 [facility] Basophils/100 WBC (Bld) 0.9 % 0-1 [facility] Bilirubin [Mass/Vol] 0.50 mg/dL 0.20-1.00 [facility] Comment on above: For patients on eltr ombopag therapy, use of Dimension [place] TBIL is not recommended. Chloride [Moles/Vol] 109 mmol/L 98-107 [facility] Cholesterol [Mass/Vol] 212 mg/dL <200 [facility] Comment on above: <200 mg/dL Desirable 200-240 mg/dL Borderline >240 mg/dL High Risk Eosinophils/100 WBC (Bld) 2.9 % 0-5 [facility] Glucose [Mass/Vol] 93 mg/dL 74-106 [facility] Neutrophils (Bld) [#/Vol] 3.7 10*3/uL 2.0-7.7 [facility] Neutrophils/100 WBC (Bld) 66.6 % 47-70 [facility] Potassium [Moles/Vol] 4.7 mmol/L 3.5-5.1 [facility] Protein [Mass/Vol] 7.6 g/dL 6.4-8.2 [facility] Sodium [Moles/Vol] 140 mmol/L 136-145 [facility] Triglyceride [Mass/Vol] 114 mg/dL <199 [facility] Comment on above: The drugs N-Acetylcy steine and Metamizole may falsely depress this assay.Serum Triglycerides Reference Interval Normal <150 mg/dL Borderline high 150 - 199 mg/dL High 200 - 499 mg/dL Very High > or = 500 mg/dL WBC (Bld) [#/Vol] 5.5 10*3/uL 4.4-11.0 [facility] Bilirubin Test strip Ql (U)O rdered By: Dr. Escobar on 01-14-2023 Bilirubin Ql (U) Negative Negative [facility] Blood erythrocytes count (nu mber/volume)Ordered By: Dr. Escobar on 01-14-2023 RBC (Bld) [#/Vol] 4.35 10*6/uL 4.2-5.4 [facility] Blood hemoglobin measurement (mass/volume)Ordered By: Dr. Escobar on 01-14-2023 Hemoglobin (Bld) [Mass/Vol] 13.2 g/dL 12.0-15.0 [facility] Blood lymphocytes/100 leukoc ytesOrdered By: Dr. Escobar on 01-14-2023 Lymphocytes/100 WBC (Bld) 21.6 % 19-41 [facility] Blood monocytes/100 leukocyt esOrdered By: Dr. Escobar on 01-14-2023 Monocytes/100 WBC (Bld) 7.6 % 0-10 [facility] Blood platelet mean volumeOr dered By: Dr. Escobar on 01-14-2023 Platelet mean volume (Bld) [Entitic vol] 10.9 fL 6.2-12.0 [facility] Determination of erythrocyte mean corpuscular volume (MCV)Ordered By: Dr. Escobar on 01-14-2023 MCV (RBC) [Entitic vol] 92.0 fL 81-99 [facility] Hematocrit Auto (Bld) [Volum e fraction]Ordered By: Dr. Escobar on 01-14-2023 Hematocrit (Bld) [Volume fraction] 40.0 % 37-47 [facility] Ketones Test strip Ql (U)Ord ered By: Dr. Escobar on 01-14-2023 Ketones Ql (U) Negative Negative [facility] - Chemistry and C hemistry - challengeOrdered By: Dr. Escobar on 01-14-2023 ALP [Catalytic activity/Vol] 94 U/L 45-117 [facility] ALT [Catalytic activity/Vol] 20 U/L 13-56 [facility] CO2 [Moles/Vol] 26.0 mmol/L 21.0-32.0 [facility] Globulin (S) [Mass/Vol] 4.0 g/dL 2.2-4.2 [facility] Urea nitrogen/Creatinine [Mass ratio] 9.9 mg/mg 10-20 [facility] [facility] - Hematology and Cell countsOrdered By: Dr. Escobar on 01-14-2023 Erythrocyte distribution width (RBC) [Entitic vol] 42.9 fL 35.1-43.9 [facility] Erythrocyte distribution width (RBC) [Ratio] 12.8 % 11.6-14.6 [facility] Immature granulocytes/100 WBC (Bld) 0.400 % 0.0-0.9 [facility] Comment on above: IG% - Immature Granu locytes (promyelocytes, myelocytes and metamyelocytes) > 1% indicates that a LEFT SHIFT is Present. MCH (RBC) [Entitic mass] 30.3 pg 27.0-32.0 [facility] Nucleated RBC/100 WBC (Bld) [Ratio] 0 % 0-5 [facility] MCHC Auto (RBC) [Mass/Vol]Or dered By: Dr. Escobar on 01-14-2023 MCHC (RBC) [Mass/Vol] 33.0 g/dL 32-36 [facility] Mucus LM Ql (Urine sed)Order ed By: Dr. Escobar on 01-14-2023 Mucus Ql (Urine sed) RARE /hpf [facility] Nitrite Test strip Ql (U)Ord ered By: Dr. Escobar on 01-14-2023 Nitrite Ql (U) Negative Negative [facility] No Panel InformationOrdered By: Dr. Escobar on 01-14-2023 Estimated GFR (MDRD) Amer 50 mL/min >60 [facility] Comment on above: GFR Calc Estimated GFR (MDRD) Non-Af Amer 42 mL/min >60 [facility] Comment on above: Non- GFR Calc Parathyroid Hormone (Intact) 74.5 pg/mL 18.4-80.1 [facility] Vitamin D 25-Hydroxy 48.9 ng/mL [facility] Comment on above: Vitamin D 25(OH) Sta tus Range Deficiency <20 ng/mL (50nmol/L) Insufficiency 20 - 30 ng/mL (50 - 75 nmol/L) Sufficiency 30 - 100 ng/mL (75 - 250 nmol/L) Toxicity >100 ng/mL (>250 nmol/L) Platelets bldOrdered By: Dr. Escobar on 01-14-2023 Platelets (Bld) [#/Vol] 244 10*3/uL 150-450 [facility] Protein Test strip Ql (U)Ord ered By: Dr. Escobar on 01-14-2023 Protein Ql (U) 15 mg/dl Negative [facility] Serum or plasma albumin jose urement (mass/volume)Ordered By: Dr. Escobar on 01-14-2023 Albumin [Mass/Vol] 3.6 g/dL 3.2-5.0 [facility] Serum or plasma albumin/glob ulin mass ratioOrdered By: Dr. Escobar on 01-14-2023 Albumin/Globulin [Mass ratio] 0.9 {ratio} 0.9-2.4 [facility] Serum or plasma calcium jose urement (mass/volume)Ordered By: Dr. Escobar on 01-14-2023 Calcium [Mass/Vol] 9.4 mg/dL 8.5-10.1 [facility] Serum or plasma cholesterol in HDL measurement (mass/volume)Ordered By: Dr. Escobar on 01-14-2023 Cholesterol in HDL [Mass/Vol] 61 mg/dL >40 [facility] Comment on above: The drugs N-Acetylcy steine and Metamizole may falsely depress this assay. Reference Range HDL <40 mg/dL Low HDL Cholesterol HDL >or= 60 mg/dL High HDL Cholesterol Serum or plasma cholesterol in VLDL measurement (mass/volume)Ordered By: Dr. Escobar on 01-14-2023 Cholesterol in VLDL [Mass/Vol] 23 mg/dL 5-40 [facility] Serum or plasma creatinine m easurement (mass/volume)Ordered By: Dr. Escobar on 01-14-2023 Creatinine [Mass/Vol] 1.31 mg/dL 0.55-1.02 [facility] Comment on above: The validity of the calculated GFR & GFRAA in patients over 70 years has not been determined. Clinical correlation is essential. Serum or plasma low density lipoprotein (LDL) cholesterol measurement (mass/volume)Ordered By: Dr. Escobar on 01-14-2023 Cholesterol in LDL [Mass/Vol] 128 mg/dL 0-130 [facility] Serum or plasma urea nitroge n measurement (mass/volume)Ordered By: Dr. Escobar on 01-14-2023 Urea nitrogen [Mass/Vol] 13 mg/dL 7-18 [facility] Squamous epithelial cells de tection in urine sediment by light microscopyOrdered By: Dr. Escobar on 01-14-2023 Epithelial cells.squamous LM Ql (Urine sed) 0-5 SEEN /hpf 5-10 [facility] Thin prep Papanicolaou smear with manual screeningOrdered By: Dr. Escobar on 01-14-2023 Thin prep Papanicolaou smear with manual screening 17 U/L 15-37 [facility] Thin prep Papanicolaou smear with manual screening 5 5-15 [facility] Urine blood detectionOrdered By: Dr. Escobar on 01-14-2023 RBC Ql (U) 10 /ul Negative [facility] RBC Ql (U) 0-5 SEEN /hpf 0-5 [facility] Urine clarityOrdered By: Dr. Escobar on 01-14-2023 Clarity (U) Sl. Cloudy Clear [facility] Urine color determinationOrd ered By: Dr. Escobar on 01-14-2023 Color (U) Yellow Yellow [facility] Urine creatinine measurement (mass/volume)Ordered By: Dr. Escobar on 01-14-2023 Creatinine (U) [Mass/Vol] 195.00 mg/dL NO RANGE EST. [facility] Urine glucose detectionOrder ed By: Dr. Escobar on 01-14-2023 Glucose Ql (U) Normal mg/dl Normal [facility] Urine leukocyte esterase det ection by dipstickOrdered By: Dr. Escobar on 01-14-2023 Leukocyte esterase Test strip Ql (U) 25 /ul Negative [facility] Urine pHOrdered By: Dr. Yogesh mosquera on 01-14-2023 pH (U) 6.0 [pH] 5.0 - 8.0 [facility] Urine protein measurement (m ass/volume)Ordered By: Dr. Escobar on 01-14-2023 Protein (U) [Mass/Vol] 21.8 mg/dL 0.0-11.8 [facility] Urine protein/creatinine mas s ratioOrdered By: Dr. Escobar on 01-14-2023 Protein/Creatinine (U) [Mass ratio] 112 mg/g CRE 0-200 [facility] Urine sediment bacteria coun t by microscopy (number/high power field)Ordered By: Dr. Escobar on 01-14-2023 Bacteria LM.HPF (Urine sed) [#/Area] RARE /hpf None Seen [facility] Urine specific gravity measu rementOrdered By: Dr. Escobar on 01-14-2023 Specific gravity (U) [Rel density] 1.015 1.002-1.030 [facility] Urobilinogen Auto test strip Ql (U)Ordered By: Dr. Escobar on 01-14-2023 Urobilinogen Ql (U) Normal mg/dl Normal [facility] Absolute lymphocyte countOrd ered By: Dr. Escobar on 09-17-2022 Lymphocytes Auto (Unsp spec) [#/Vol] 1.39 10*3/uL 0.83-4.51 [facility] Basophil percentageOrdered B y: Dr. Escobar on 09-17-2022 Basophil percentage 0-5 SEEN /hpf 0-5 [facility] Basophils/100 WBC (Bld) 0.8 % 0-1 [facility] Bilirubin [Mass/Vol] 0.70 mg/dL 0.20-1.00 [facility] Comment on above: For patients on eltr ombopag therapy, use of Dimension [place] TBIL is not recommended. Chloride [Moles/Vol] 108 mmol/L 98-107 [facility] Eosinophils/100 WBC (Bld) 1.9 % 0-5 [facility] Glucose [Mass/Vol] 90 mg/dL 74-106 [facility] Neutrophils (Bld) [#/Vol] 3.3 10*3/uL 2.0-7.7 [facility] Neutrophils/100 WBC (Bld) 61.2 % 47-70 [facility] Potassium [Moles/Vol] 3.8 mmol/L 3.5-5.1 [facility] Protein [Mass/Vol] 7.3 g/dL 6.4-8.2 [facility] Sodium [Moles/Vol] 140 mmol/L 136-145 [facility] WBC (Bld) [#/Vol] 5.3 10*3/uL 4.4-11.0 [facility] Bilirubin Test strip Ql (U)O rdered By: Dr. Escobar on 09-17-2022 Bilirubin Ql (U) Negative Negative [facility] Blood erythrocytes count (nu mber/volume)Ordered By: Dr. Escobar on 09-17-2022 RBC (Bld) [#/Vol] 4.35 10*6/uL 4.2-5.4 [facility] Blood hemoglobin measurement (mass/volume)Ordered By: Dr. Escobar on 09-17-2022 Hemoglobin (Bld) [Mass/Vol] 12.8 g/dL 12.0-15.0 [facility] Blood lymphocytes/100 leukoc ytesOrdered By: Dr. Escobar on 09-17-2022 Lymphocytes/100 WBC (Bld) 26.1 % 19-41 [facility] Blood monocytes/100 leukocyt esOrdered By: Dr. Escobar on 09-17-2022 Monocytes/100 WBC (Bld) 9.6 % 0-10 [facility] Blood platelet mean volumeOr dered By: Dr. Escobar on 09-17-2022 Platelet mean volume (Bld) [Entitic vol] 10.9 fL 6.2-12.0 [facility] Determination of erythrocyte mean corpuscular volume (MCV)Ordered By: Dr. Escobar on 09-17-2022 MCV (RBC) [Entitic vol] 92.6 fL 81-99 [facility] Hematocrit Auto (Bld) [Volum e fraction]Ordered By: Dr. Escobar on 09-17-2022 Hematocrit (Bld) [Volume fraction] 40.3 % 37-47 [facility] Ketones Test strip Ql (U)Ord ered By: Dr. Escobar on 09-17-2022 Ketones Ql (U) Negative Negative [facility] Laboratory - Chemistry and C hemistry - challengeOrdered By: Dr. Escobar on 09-17-2022 ALP [Catalytic activity/Vol] 77 U/L 45-117 [facility] ALT [Catalytic activity/Vol] 19 U/L 13-56 [facility] CO2 [Moles/Vol] 26.0 mmol/L 21.0-32.0 [facility] Globulin (S) [Mass/Vol] 3.7 g/dL 2.2-4.2 [facility] Urea nitrogen/Creatinine [Mass ratio] 8.6 mg/mg 10-20 [facility] - Hematology and Cell countsOrdered By: Dr. Escobar on 09-17-2022 Erythrocyte distribution width (RBC) [Entitic vol] 45.2 fL 35.1-43.9 [facility] Erythrocyte distribution width (RBC) [Ratio] 13.4 % 11.6-14.6 [facility] Immature granulocytes/100 WBC (Bld) 0.400 % 0.0-0.9 [facility] Comment on above: IG% - Immature Granu locytes (promyelocytes, myelocytes and metamyelocytes) > 1% indicates that a LEFT SHIFT is Present. MCH (RBC) [Entitic mass] 29.4 pg 27.0-32.0 [facility] Nucleated RBC/100 WBC (Bld) [Ratio] 0 % 0-5 [facility] MCHC Auto (RBC) [Mass/Vol]Or dered By: Dr. Escobar on 09-17-2022 MCHC (RBC) [Mass/Vol] 31.8 g/dL 32-36 [facility] Mucus LM Ql (Urine sed)Order ed By: Dr. Escobar on 09-17-2022 Mucus Ql (Urine sed) 0 SEEN /hpf [facility] Nitrite Test strip Ql (U)Ord ered By: Dr. Escobar on 09-17-2022 Nitrite Ql (U) Negative Negative [facility] No Panel InformationOrdered By: Dr. Escobar on 09-17-2022 Estimated GFR (MDRD) Amer 52 mL/min >60 [facility] Comment on above: GFR Calc Estimated GFR (MDRD) Non-Af Amer 43 mL/min >60 [facility] Comment on above: Non- GFR Calc Parathyroid Hormone (Intact) 55.9 pg/mL 18.4-80.1 [facility] Vitamin D 25-Hydroxy 55.2 ng/mL [facility] Comment on above: Vitamin D 25(OH) Sta tus Range Deficiency <20 ng/mL (50nmol/L) Insufficiency 20 - 30 ng/mL (50 - 75 nmol/L) Sufficiency 30 - 100 ng/mL (75 - 250 nmol/L) Toxicity >100 ng/mL (>250 nmol/L) Platelets bldOrdered By: Dr. Escobar on 09-17-2022 Platelets (Bld) [#/Vol] 205 10*3/uL 150-450 [facility] Protein Test strip Ql (U)Ord ered By: Dr. Escobar on 09-17-2022 Protein Ql (U) Negative Negative [facility] Serum or plasma albumin jose urement (mass/volume)Ordered By: Dr. Escobar on 09-17-2022 Albumin [Mass/Vol] 3.6 g/dL 3.2-5.0 [facility] Serum or plasma albumin/glob ulin mass ratioOrdered By: Dr. Escobar on 09-17-2022 Albumin/Globulin [Mass ratio] 1.0 {ratio} 0.9-2.4 [facility] Serum or plasma calcium jose urement (mass/volume)Ordered By: Dr. Escobar on 09-17-2022 Calcium [Mass/Vol] 9.2 mg/dL 8.5-10.1 [facility] Serum or plasma creatinine m easurement (mass/volume)Ordered By: Dr. Ecsobar on 09-17-2022 Creatinine [Mass/Vol] 1.28 mg/dL 0.55-1.02 [facility] Comment on above: The validity of the calculated GFR & GFRAA in patients over 70 years has not been determined. Clinical correlation is essential. Serum or plasma urea nitroge n measurement (mass/volume)Ordered By: Dr. Escobar on 09-17-2022 Urea nitrogen [Mass/Vol] 11 mg/dL 7-18 [facility] Squamous epithelial cells de tection in urine sediment by light microscopyOrdered By: Dr. Escobar on 09-17-2022 Epithelial cells.squamous LM Ql (Urine sed) 0 SEEN /hpf 5-10 [facility] Thin prep Papanicolaou smear with manual screeningOrdered By: Dr. Escobar on 09-17-2022 Thin prep Papanicolaou smear with manual screening 21 U/L 15-37 [facility] Thin prep Papanicolaou smear with manual screening 6 5-15 [facility] Urine blood detectionOrdered By: Dr. Escobar on 09-17-2022 RBC Ql (U) Negative Negative [facility] RBC Ql (U) 0 SEEN /hpf 0-5 [facility] Urine clarityOrdered By: Dr. Escobar on 09-17-2022 Clarity (U) Sl. Cloudy Clear [facility] Urine color determinationOrd ered By: Dr. Escobar on 09-17-2022 Color (U) Yellow Yellow [facility] Urine creatinine measurement (mass/volume)Ordered By: Dr. Escobar on 09-17-2022 Creatinine (U) [Mass/Vol] 83.70 mg/dL NO RANGE EST. [facility] Urine glucose detectionOrder ed By: Dr. Escobar on 09-17-2022 Glucose Ql (U) Normal mg/dl Normal [facility] Urine leukocyte esterase det ection by dipstickOrdered By: Dr. Escobar on 09-17-2022 Leukocyte esterase Test strip Ql (U) 25 /ul Negative [facility] Urine pHOrdered By: Dr. Yogesh mosquera on 09-17-2022 pH (U) 6.0 [pH] 5.0 - 8.0 [facility] Urine protein measurement (m ass/volume)Ordered By: Dr. Escobar on 09-17-2022 Protein (U) [Mass/Vol] mg/dL 0.0-11.8 [facility] Urine protein/creatinine mas s ratioOrdered By: Dr. Escobar on 09-17-2022 Protein/Creatinine (U) [Mass ratio] TNP [facility] Comment on above: Test not performed Urine sediment bacteria coun t by microscopy (number/high power field)Ordered By: Dr. Escobar on 09-17-2022 Bacteria LM.HPF (Urine sed) [#/Area] 0 /[HPF] None Seen [facility] Urine specific gravity measu rementOrdered By: Dr. Escobar on 09-17-2022 Specific gravity (U) [Rel density] 1.010 1.002-1.030 [facility] Urobilinogen Auto test strip Ql (U)Ordered By: Dr. Escobar on 09-17-2022 Urobilinogen Ql (U) Normal mg/dl Normal [facility] Absolute lymphocyte counton 05-21-2022 Lymphocytes Auto (Unsp spec) [#/Vol] 1.01 10*3/uL 0.83-4.51 [facility] Work Phone: Basophil percentageon 2021 Basophil percentage 2.9 mg/dL 2.5-4.9 [facility]: Basophils/100 WBC (Bld) 0.7 % 0-1 [facility] Work Phone: Bilirubin [Mass/Vol] 0.50 mg/dL 0.20-1.00 [facility] Work Phone: Comment on above: For patients on eltr ombopag therapy, use of Dimension [place] TBIL is not recommended. Chloride [Moles/Vol] 108 mmol/L 98-107 [facility] Work Phone: Cholesterol [Mass/Vol] 205 mg/dL <200 [facility] Work Phone: Comment on above: <200 mg/dL Desirable 200-240 mg/dL Borderline >240 mg/dL High Risk Eosinophils/100 WBC (Bld) 2.2 % 0-5 [facility] Work Phone: Glucose [Mass/Vol] 91 mg/dL 74-106 [facility] Work Phone: Neutrophils (Bld) [#/Vol] 4.1 10*3/uL 2.0-7.7 [facility] Work Phone: Neutrophils/100 WBC (Bld) 70.8 % 47-70 [facility] Work Phone: Potassium [Moles/Vol] 4.2 mmol/L 3.5-5.1 [facility] Work Phone: Protein [Mass/Vol] 7.2 g/dL 6.4-8.2 [facility] Work Phone: Sodium [Moles/Vol] 141 mmol/L 136-145 [facility] Work Phone: [phone] Triglyceride [Mass/Vol] 140 mg/dL <199 [facility] Work Phone: [phone] Comment on above: The drugs N-Acetylcy steine and Metamizole may falsely depress this assay.Serum Triglycerides Reference Interval Normal <150 mg/dL Borderline high 150 - 199 mg/dL High 200 - 499 mg/dL Very High > or = 500 mg/dL WBC (Bld) [#/Vol] 5.8 10*3/uL 4.4-11.0 [facility] Work [facility]: [phone] Basophil percentage 0-5 SEEN /hpf 0-5 [facility] Work Phone: [phone] Bilirubin Test strip Ql (U)o n 05-21-2022 Bilirubin Ql (U) Negative Negative [facility] Work Phone: [phone] Blood erythrocytes count (nu mber/volume)on 05-21-2022 RBC (Bld) [#/Vol] 4.21 10*6/uL 4.2-5.4 [facility] Work Phone: Blood hemoglobin measurement (mass/volume)on 05-21-2022 Hemoglobin (Bld) [Mass/Vol] 12.7 g/dL 12.0-15.0 [facility] Work Phone: [phone] Blood lymphocytes/100 leukoc yteson 05-21-2022 Lymphocytes/100 WBC (Bld) 17.5 % 19-41 [facility] Work Phone: [phone] Blood monocytes/100 leukocyt eson 05-21-2022 Monocytes/100 WBC (Bld) 8.5 % 0-10 [facility] Work Phone: [phone] Blood platelet mean volumeon 05-21-2022 Platelet mean volume (Bld) [Entitic vol] 10.8 fL 6.2-12.0 [facility] Work Phone: [phone] Determination of erythrocyte mean corpuscular volume (MCV)on 05-21-2022 MCV (RBC) [Entitic vol] 94.3 fL 81-99 [facility] Work Phone: Hematocrit Auto (Bld) [Volum e fraction]on 05-21-2022 Hematocrit (Bld) [Volume fraction] 39.7 % 37-47 [facility] Work Phone: [phone] Ketones Test strip Ql (U)on 05-21-2022 Ketones Ql (U) Negative Negative [facility] Work Phone: [phone] Laboratory - Chemistry and C hemistry - challengeon 05-21-2022 ALP [Catalytic activity/Vol] 72 U/L 45-117 [facility] Work Phone: [phone] ALT [Catalytic activity/Vol] 19 U/L 13-56 [facility] Work Phone: [phone] CO2 [Moles/Vol] 27.0 mmol/L 21.0-32.0 [facility] Work Phone: [phone] Globulin (S) [Mass/Vol] 3.8 g/dL 2.2-4.2 [facility] Work Phone: [phone] Urea nitrogen/Creatinine [Mass ratio] 12.1 mg/mg 10-20 [facility] Work Phone: [phone] Laboratory - Hematology and Cell countson 05-21-2022 Erythrocyte distribution width (RBC) [Entitic vol] 44.9 fL 35.1-43.9 [facility] Work Phone: [phone] Erythrocyte distribution width (RBC) [Ratio] 13.1 % 11.6-14.6 [facility] Work Phone: [phone] Immature granulocytes/100 WBC (Bld) 0.300 % 0.0-0.9 [facility] Work Phone: [phone] Comment on above: IG% - Immature Granu locytes (promyelocytes, myelocytes and metamyelocytes) > 1% indicates that a LEFT SHIFT is Present. MCH (RBC) [Entitic mass] 30.2 pg 27.0-32.0 [facility] Work Phone: [phone] Nucleated RBC/100 WBC (Bld) [Ratio] 0 % 0-5 [facility] Work Phone: [phone] MCHC Auto (RBC) [Mass/Vol]on 05-21-2022 MCHC (RBC) [Mass/Vol] 32.0 g/dL 32-36 [facility] Work Phone: Mucus LM Ql (Urine sed)on Mucus Ql (Urine sed) 0 SEEN /hpf [facility] Work Phone: Nitrite Test strip Ql (U)on 05-21-2022 Nitrite Ql (U) Negative Negative [facility] Work Phone: No Panel Informationon 05-21 Estimated GFR (MDRD) Amer 54 mL/min >60 [facility] Work Phone: Comment on above: GFR Calc Estimated GFR (MDRD) Non-Af Amer 44 mL/min >60 [facility] Work Phone: Comment on above: Non- GFR Calc Parathyroid Hormone (Intact) 47.9 pg/mL 18.4-80.1 [facility] Work Phone: Thyroid Stimulating Hormone (TSH) 1.24 uIU/mL 0.358-3.74 [facility] Work Phone: Vitamin D 25-Hydroxy 47.6 ng/mL [facility] Work Phone: Comment on above: Vitamin D 25(OH) Sta tus Range Deficiency <20 ng/mL (50nmol/L) Insufficiency 20 - 30 ng/mL (50 - 75 nmol/L) Sufficiency 30 - 100 ng/mL (75 - 250 nmol/L) Toxicity >100 ng/mL (>250 nmol/L) Platelets bldon 05-21-2022 Platelets (Bld) [#/Vol] 213 10*3/uL 150-450 [facility] Work Phone: Protein Test strip Ql (U)on 05-21-2022 Protein Ql (U) Negative Negative [facility] Work Phone: [phone] Serum or plasma albumin jose urement (mass/volume)on 05-21-2022 Albumin [Mass/Vol] 3.4 g/dL 3.2-5.0 [facility] Work Phone: Serum or plasma albumin/glob ulin mass ratioon 05-21-2022 Albumin/Globulin [Mass ratio] 0.9 {ratio} 0.9-2.4 [facility] Work Phone: Serum or plasma calcium jose urement (mass/volume)on 05-21-2022 Calcium [Mass/Vol] 9.4 mg/dL 8.5-10.1 [facility] Work Phone: Serum or plasma cholesterol in HDL measurement (mass/volume)on 05-21-2022 Cholesterol in HDL [Mass/Vol] 60 mg/dL >40 [facility] Work Phone: Comment on above: The drugs N-Acetylcy steine and Metamizole may falsely depress this assay. Reference Range HDL <40 mg/dL Low HDL Cholesterol HDL >or= 60 mg/dL High HDL Cholesterol Serum or plasma cholesterol in VLDL measurement (mass/volume)on 05-21-2022 Cholesterol in VLDL [Mass/Vol] 28 mg/dL 5-40 [facility] Work Phone: [phone] Serum or plasma creatinine m easurement (mass/volume)on 05-21-2022 Creatinine [Mass/Vol] 1.24 mg/dL 0.55-1.02 [facility] Work Phone: Comment on above: The validity of the calculated GFR & GFRAA in patients over 70 years has not been determined. Clinical correlation is essential. Serum or plasma low density lipoprotein (LDL) cholesterol measurement (mass/volume)on 05-21-2022 Cholesterol in LDL [Mass/Vol] 117 mg/dL 0-130 [facility] Work Phone: [phone] Serum or plasma urea nitroge n measurement (mass/volume)on 05-21-2022 Urea nitrogen [Mass/Vol] 15 mg/dL 7-18 [facility] Work Phone: [phone] Squamous epithelial cells de tection in urine sediment by light microscopyon 05-21-2022 Epithelial cells.squamous LM Ql (Urine sed) 0-5 SEEN /hpf 5-10 [facility] Work Phone: [phone] Thin prep Papanicolaou smear with manual screeningon 05-21-2022 Thin prep Papanicolaou smear with manual screening 17 U/L 15-37 [facility] Work Phone: Thin prep Papanicolaou smear with manual screening 6 5-15 [facility] Work Phone: Urine blood detectionon 05-12 RBC Ql (U) Negative Negative [facility] Work Phone: [phone] RBC Ql (U) 0 SEEN /hpf 0-5 [facility] Work Phone: Urine clarityon 05-21-2022 Clarity (U) Clear Clear [facility] Work Phone: Urine color determinationon 05-21-2022 Color (U) Yellow Yellow [facility] Work Phone: Urine creatinine measurement (mass/volume)on 05-21-2022 Creatinine (U) [Mass/Vol] 176.00 mg/dL NO RANGE EST. [facility] Work Phone: Urine glucose detectionon Glucose Ql (U) Normal mg/dl Normal [facility] Work Phone: Urine leukocyte esterase det ection by dipstickon 05-21-2022 Leukocyte esterase Test strip Ql (U) 25 /ul Negative [facility] Work Phone: Urine pHon 05-21-2022 pH (U) 6.5 [pH] 5.0 - 8.0 [facility] Work Phone: Urine protein measurement (m ass/volume)on 05-21-2022 Protein (U) [Mass/Vol] 16.4 mg/dL 0.0-11.8 [facility] Work Phone: Urine protein/creatinine mas s ratioon 05-21-2022 Protein/Creatinine (U) [Mass ratio] 93 mg/g CRE 0-200 [facility] Work Phone: Urine sediment bacteria coun t by microscopy (number/high power field)on 05-21-2022 Bacteria LM.HPF (Urine sed) [#/Area] 0 /[HPF] None Seen [facility] Work Phone: Urine specific gravity measu rementon 05-21-2022 Specific gravity (U) [Rel density] 1.010 1.002-1.030 [facility] Work Phone: Urobilinogen Auto test strip Ql (U)on 05-21-2022 Urobilinogen Ql (U) Normal mg/dl Normal [facility] Work Phone: Absolute lymphocyte counton 12-29-2021 Lymphocytes Auto (Unsp spec) [#/Vol] 1.36 10*3/uL 0.83-4.51 [facility] Work Phone: Basophil percentageon 2021 Basophil percentage 0 SEEN /hpf [facility] Work Phone: Basophil percentage 2.9 mg/dL 2.5-4.9 [facility] Work Phone: Basophils/100 WBC (Bld) 1.2 % 0-1 [facility] Work Phone: Bilirubin [Mass/Vol] 0.40 mg/dL 0.20-1.00 [facility] Work Phone: Comment on above: For patients on eltr ombopag therapy, use of Dimension [place] TBIL is not recommended. Chloride [Moles/Vol] 109 mmol/L 98-107 [facility] Work Phone: Cholesterol [Mass/Vol] 234 mg/dL <200 [facility] Work Phone: Comment on above: <200 mg/dL Desirable 200-240 mg/dL Borderline >240 mg/dL High Risk Eosinophils/100 WBC (Bld) 2.5 % 0-5 [facility] Work Phone: Glucose [Mass/Vol] 87 mg/dL 74-106 [facility] Work Phone: Neutrophils (Bld) [#/Vol] 3.1 10*3/uL 2.0-7.7 [facility] Work Phone: Neutrophils/100 WBC (Bld) 60.6 % 47-70 [facility] Work Phone: [phone] Potassium [Moles/Vol] 4.1 mmol/L 3.5-5.1 [facility] Work Phone: [phone] Protein [Mass/Vol] 7.4 g/dL 6.4-8.2 [facility] Work Phone: [phone] Sodium [Moles/Vol] 140 mmol/L 136-145 [facility] Work Phone: [phone] Triglyceride [Mass/Vol] 143 mg/dL [facility] Work Phone: [phone] Comment on above: The drugs N-Acetylcy steine and Metamizole may falsely depress this assay.Serum Triglycerides Reference Interval Normal <150 mg/dL Borderline high 150 - 199 mg/dL High 200 - 499 mg/dL Very High > or = 500 mg/dL WBC (Bld) [#/Vol] 5.1 10*3/uL 4.4-11.0 [facility] Work Phone: [phone] Bilirubin Test strip Ql (U)o n 12-29-2021 Bilirubin Ql (U) Negative Negative [facility] Work Phone: [phone] Blood erythrocytes count (nu mber/volume)on 12-29-2021 RBC (Bld) [#/Vol] 4.32 10*6/uL 4.2-5.4 [facility] Work Phone: [phone] Blood hemoglobin measurement (mass/volume)on 12-29-2021 Hemoglobin (Bld) [Mass/Vol] 12.9 g/dL 12.0-15.0 [facility] Work Phone: [phone] Blood lymphocytes/100 leukoc yteson 12-29-2021 Lymphocytes/100 WBC (Bld) 26.5 % 19-41 [facility] Work Phone: [phone] Blood monocytes/100 leukocyt eson 12-29-2021 Monocytes/100 WBC (Bld) 8.8 % 0-10 [facility] Work Phone: [phone] Blood platelet mean volumeon 12-29-2021 Platelet mean volume (Bld) [Entitic vol] 10.7 fL 6.2-12.0 [facility] Work Phone: [phone] Determination of erythrocyte mean corpuscular volume (MCV)on 12-29-2021 MCV (RBC) [Entitic vol] 93.3 fL 81-99 [facility] Work Phone: [phone] Hematocrit Auto (Bld) [Volum e fraction]on 12-29-2021 Hematocrit (Bld) [Volume fraction] 40.3 % 37-47 [facility] Work Phone: [phone] Ketones Test strip Ql (U)on 12-29-2021 Ketones Ql (U) Negative Negative [facility] Work Phone: [phone] Laboratory - Chemistry and C hemistry - challengeon 12-29-2021 ALP [Catalytic activity/Vol] 88 U/L 45-117 [facility] Work Phone: [phone] ALT [Catalytic activity/Vol] 19 U/L 13-56 [facility] Work Phone: [phone] CO2 [Moles/Vol] 26.0 mmol/L 21.0-32.0 [facility] Work Phone: [phone] Globulin (S) [Mass/Vol] 4.0 g/dL 2.2-4.2 [facility] Work Phone: [phone] Urea nitrogen/Creatinine [Mass ratio] 10.1 mg/mg 10-20 [facility] Work Phone: [phone] Laboratory - Hematology and Cell countson 12-29-2021 Erythrocyte distribution width (RBC) [Entitic vol] 46.2 fL 35.1-43.9 [facility] Work Phone: [phone] Erythrocyte distribution width (RBC) [Ratio] 13.5 % 11.6-14.6 [facility] Work Phone: [phone] Immature granulocytes/100 WBC (Bld) 0.400 % 0.0-0.9 [facility] Work Phone: [phone] Comment on above: IG% - Immature Granu locytes (promyelocytes, myelocytes and metamyelocytes) > 1% indicates that a LEFT SHIFT is Present. MCH (RBC) [Entitic mass] 29.9 pg 27.0-32.0 [facility] Work Phone: Nucleated RBC/100 WBC (Bld) [Ratio] 0 % 0-5 [facility] Work Phone: [phone] MCHC Auto (RBC) [Mass/Vol]on 12-29-2021 MCHC (RBC) [Mass/Vol] 32.0 g/dL 32-36 [facility] Work Phone: Mucus LM Ql (Urine sed)on Mucus Ql (Urine sed) 0 SEEN /hpf [facility] Work Phone: Nitrite Test strip Ql (U)on 12-29-2021 Nitrite Ql (U) Negative Negative [facility] Work Phone: No Panel Informationon 12-29 Estimated GFR (MDRD) Amer 51 mL/min >60 [facility] Work Phone: Comment on above: GFR Calc Estimated GFR (MDRD) Non-Af Amer 42 mL/min >60 [facility] Work Phone: Comment on above: Non- GFR Calc Parathyroid Hormone (Intact) 45.6 pg/mL 18.4-80.1 [facility] Work Phone: [phone] Thyroid Stimulating Hormone (TSH) 1.21 uIU/mL 0.358-3.74 [facility] Work Phone: [phone] Vitamin D 25-Hydroxy 41.2 ng/mL [facility] Work Phone: [phone] Comment on above: Vitamin D 25(OH) Sta tus Range Deficiency <20 ng/mL (50nmol/L) Insufficiency 20 - 30 ng/mL (50 - 75 nmol/L) Sufficiency 30 - 100 ng/mL (75 - 250 nmol/L) Toxicity >100 ng/mL (>250 nmol/L) Platelets bldon 12-29-2021 Platelets (Bld) [#/Vol] 218 10*3/uL 150-450 [facility] Work Phone: Protein Test strip Ql (U)on 12-29-2021 Protein Ql (U) Negative Negative [facility] Work Phone: Serum or plasma albumin jose urement (mass/volume)on 12-29-2021 Albumin [Mass/Vol] 3.4 g/dL 3.2-5.0 [facility] Work Phone: Serum or plasma albumin/glob ulin mass ratioon 12-29-2021 Albumin/Globulin [Mass ratio] 0.8 {ratio} 0.9-2.4 [facility] Work Phone: Serum or plasma calcium jose urement (mass/volume)on 12-29-2021 Calcium [Mass/Vol] 9.4 mg/dL 8.5-10.1 [facility] Work Phone: Serum or plasma cholesterol in HDL measurement (mass/volume)on 12-29-2021 Cholesterol in HDL [Mass/Vol] 64 mg/dL [facility] Work Phone: Comment on above: The drugs N-Acetylcy steine and Metamizole may falsely depress this assay. Reference Range HDL <40 mg/dL Low HDL Cholesterol HDL >or= 60 mg/dL High HDL Cholesterol Serum or plasma cholesterol in VLDL measurement (mass/volume)on 12-29-2021 Cholesterol in VLDL [Mass/Vol] 29 mg/dL 5-40 [facility] Work Phone: Serum or plasma creatinine m easurement (mass/volume)on 12-29-2021 Creatinine [Mass/Vol] 1.29 mg/dL 0.55-1.02 [facility] Work Phone: Comment on above: The validity of the calculated GFR & GFRAA in patients over 70 years has not been determined. Clinical correlation is essential. Serum or plasma low density lipoprotein (LDL) cholesterol measurement (mass/volume)on 12-29-2021 Cholesterol in LDL [Mass/Vol] 141 mg/dL 0-130 [facility] Work Phone: Serum or plasma urea nitroge n measurement (mass/volume)on 12-29-2021 Urea nitrogen [Mass/Vol] 13 mg/dL 7-18 [facility] Work Phone: Squamous epithelial cells de tection in urine sediment by light microscopyon 12-29-2021 Epithelial cells.squamous LM Ql (Urine sed) 0 SEEN /hpf [facility] Work Phone: Thin prep Papanicolaou smear with manual screeningon 12-29-2021 Thin prep Papanicolaou smear with manual screening 20 U/L 15-37 [facility] Work Phone: [phone] Thin prep Papanicolaou smear with manual screening 5 5-15 [facility] Work Phone: Urine blood detectionon 2 RBC Ql (U) Negative Negative [facility] Work Phone: [phone] RBC Ql (U) 0 SEEN /hpf [facility] Work Phone: Urine clarityon 12-29-2021 Clarity (U) Clear Clear [facility] Work Phone: Urine color determinationon 12-29-2021 Color (U) Yellow Yellow [facility] Work Phone: Urine creatinine measurement (mass/volume)on 12-29-2021 Creatinine (U) [Mass/Vol] 79.30 mg/dL NO RANGE EST. [facility] Work Phone: Urine glucose detectionon Glucose Ql (U) Normal mg/dl Normal [facility] Work Phone: Urine leukocyte esterase det ection by dipstickon 12-29-2021 Leukocyte esterase Test strip Ql (U) 25 /ul Negative [facility] Work Phone: Urine pHon 12-29-2021 pH (U) 6.0 [pH] [facility] Work Phone: Urine protein measurement (m ass/volume)on 12-29-2021 Protein (U) [Mass/Vol] 9.1 mg/dL 0.0-11.8 [facility] Work Phone: Urine protein/creatinine mas s ratioon 12-29-2021 Protein/Creatinine (U) [Mass ratio] 115 mg/g CRE 0-200 [facility] Work Phone: Urine sediment bacteria coun t by microscopy (number/high power field)on 12-29-2021 Bacteria LM.HPF (Urine sed) [#/Area] 0 /[HPF] None Seen [facility] Work Phone: Urine specific gravity measu rementon 12-29-2021 Specific gravity (U) [Rel density] 1.010 [facility] Work Phone: Urobilinogen Auto test strip Ql (U)on 12-29-2021 Urobilinogen Ql (U) Normal mg/dl Normal [facility] Work Phone: PROGRESSon 09-30-2017 PROGRESS HNO ID: [id number]: Inocencia Jung (Rt) Nicolas Houston: (none)Author Type: TechnicianType: Progress NotesFiled: 09/30/2017 9:03 AMNote Text: Radiology Service Progress NotePATIENT NAME: Haydee StraussMRN: [id number] OF SERVICE: September 30, 2017TIME: 8:54 AMPATIENT IDENTITY VERIFICATION COMPLETED USING TWO (2) METHODS: Patientconfirmed name verbally and Date of .PATIENT GENDER DATA: Female. status: : NoBreastfeeding status: NO.PATIENT RELEVANT IMPLANT DATA REVIEWED: Not ApplicableRADIOLOGY DEPARTMENT: General X-ray: Exam(s) Completed: Chest X-RayPERIPHERAL IV DATA: Not applicableSIGNED BY: RT MarcinFebruary 2017 8:54 AM Normal [facility] XR CHEST 2V FRONTAL/LATon XR CHEST 2V FRONTAL/LAT * * *Final Repor t* * *DATE OF EXAM: Sep 30 2017 9:02AM [id number] [id number] - XR CHEST 2V FRONTAL/LAT / REASON: lung nodule * * * * Physician Interpretation * * * * EXAMINATION: CHEST RADIOGRAPH (2 VIEW FRONTAL and LATERAL)Clinical History: lung noduleM: [id number]: 02/15/2012RESULT:Lines , tubes, and devices: None.Lungs and pleura: There is a stable 1 cm nodule within the left upper lobe and areas of scarring within the right middle lobe, lingula and left lower lobe. No additional nodules are identified. There is no evidence of consolidation, pleural effusion or pneumothorax. Pulmonary vascularity is normal.Cardiomediastin al silhouette: Normal cardiomediastinal silhouette. There is atherosclerotic calcification within the aortic arch.Other: There is diffuse osteopenia and multilevel degenerative disc disease predominantly involving the mid to upper thoracic spine.IMPRESSION:NO ACUTE RADIOGRAPHIC ABNORMALITY. STABLE LEFT UPPER LOBE NODULE AND AREAS OF SCARRING WITHIN BOTH LUNGS.Senior Systems Analyst : PSCB Transcribe Date/Time: Sep 30 2017 10:37ADictated by : DEIRDRE ZIMMERMAN MDThis examination was interpreted and the report reviewed and electronically signed by: DEIRDRE ZIMMERMAN MD on Sep 30 2017 10:41AM [id number] Normal [facility] Vital Signs Date Time Vital Sign Value Performing Clinician Popeye rolon 02-07-2023 12:52-0400 Body height 154.[address] Georges Escobar Work Phone: [facility] Encounters Encounter Date Encounter Type Care Provider Facility Start: 01-22-2025 End: 01-22-[address] Georges Escobar MD Work Phone: [facility] Work Phone: Start: 01-22-2025 End: 01-22-[address] Georges Escobar MD -Laboratory [facility] Start: 01-22-2025 End: 01-22-2025 ambulatory Georges Escobar Facility:[facility] Start: 09-23-2024 End: 09-23-2024 ambulatory Georges Escobar Facility:[facility] Start: 02-19-2024 End: 02-19-2024 ambulatory Georges Snow Escobar Facility:[facility] Start: 10-14-2023 End: 10-14-2023 ambulatory [facility] Work Phone: Start: 10-14-2023 End: 10-14-2023 Patient encounter procedure [facility] Start: 09-11-2023 End: 09-11-2023 ambulatory [facility] Work Phone: Start: 09-11-2023 End: 09-11-2023 Discharged Recurring [facility]-Physical Therapy Work Phone: Start: 06-14-2023 End: 06-14-2023 ambulatory [facility] Work Phone: Start: 06-14-2023 End: 06-14-2023 [facility] Start: 03-07-2023 End: 03-07-2023 Patient encounter procedure [facility] Work Phone: Start: 02-07-2023 End: 02-07-[address] Georges Escobar Work Phone: [facility] Work Phone: Start: 02-07-2023 End: 02-07-[address] Georges Escobar Work Phone: [facility]-Outpatient Bone Densitometry Work Phone: Start: 01-27-2023 Non-patient / Non-visit Dr. Pam Escobar Work Phone: [facility] Start: 01-25-2023 End: 01-25-[address] Georges Escobar Work Phone: [facility] Work Phone: Start: 01-25-2023 End: 01-25-[address] Georges Escobar Work Phone: [facility]-Cardiovascular Services Start: 01-25-2023 Non-patient / Non-visit Dr. Pam Escobar Work Phone: [facility] Start: 01-18-2023 End: 01-18-2023 ambulatory [facility] Work Phone: Start: 01-18-2023 End: 01-18-2023 Patient encounter procedure [facility] Start: 01-14-2023 End: 01-14-2023 ambulatory [facility] Work Phone: Start: 01-14-2023 End: 01-14-2023 Patient encounter procedure [facility] Start: 09-17-2022 End: 09-17-2022 ambulatory [facility] Work Phone: Start: 09-17-2022 End: 09-17-2022 Patient encounter procedure [facility] Start: 05-21-2022 End: 05-21-2022 ambulatory [facility] Work Phone: Start: 05-21-2022 End: 05-21-2022 Patient encounter procedure [facility] Start: 12-29-2021 End: 12-29-2021 Patient encounter procedure [facility] Start: 09-30-2017 End: 09-30-2017 Ambulatory GEORGES ESCOBAR [facility] Procedures Date Procedure Procedure Detail Performing Clinician Start: 01-22-2025 Urnls dip stick/tabl et reagent auto microscopy Dr. Georges Escobar MD Work Phone: Start: 01-22-[address] Georges Escobar MD Work Phone: Start: 01-22-2025 Vitamin D, 25-hydrox y measurement Dr. Georges Escobar MD Work Phone: Comment on above: Vitamin D StatusDefi ciency: <20 ng/mL (50nmol/L)Insufficiency: 20-30 ng/mL (50-75 nmol/L)Sufficiency: 30-100 ng/mL (75-250 nmol/L)Toxicity: >100 ng/mL (>250 nmol/L) Start: 06-14-2023 Plain X-ray of shoulder Start: 03-07-2023 Plain x-ray of pelvi s and lower extremity Start: 02-07-2023 Dual energy X-ray absorptiometry Dr. Georges Escobar Work Phone: Start: 01-25-2023 Radionuclide imaging of perfusion of myocardium under exercise stress Dr. Georges Escobar Work Phone: Start: 01-18-2023 X-ray of lumbar spin e, two or three views Payers Date Payer Category Payer Self-pay [id number] 2024 Unknown [id number] 2009 Unknown [id number] 2008 Medicare [id number] Private Health Insurance [facility] [id number] Unknown [id number] Unknown [id number] Unknown [id number] Social History Date Type Detail Facility Start: 11-20-2017 End: 11-20-2017 Tobacco smoking status NHIS Unknown if ever smoked [facility] Start: 1945 Sex Assigned At Female [facility] Start: 11-20-2017 Tobacco smoking stat us NHIS Ex-smoker (finding) [facility] Goals Date Patient Goal Desired Activity /State Discharge summary 09-13-2023 Note Date & Type Note Facility 09-13-2023 Discharge summary Note Date/Time September 13, 2023 1:46pm [facility] Physical Therapy [facility] [address] [place] [address]. [address] [place] [address] / REHABILITATION SERVICES DISCHARGE SUMMARY MR#: [id number] Acct: [id number] Name: HAYDEE STRAUSS Rep #: [id number] 2 : 1945 78 From: Ru Hernandez PT, ATC Referring Dr.: Dr. Georges Escobar MD Status: REG RCR Insurance: [facility] MEDICARE OTHER SELF PAY INSURANCE Discharge Summary D/C summary: It has been my pleasure to treat HAYDEE STRAUSS referred by Dr. Georges Escobar MD, with the diagnosis of L shoulder impingement for a total of 23 visit(s). Discharge Date: Please see the following information for a summary of their discharge status. Subjective Subjective: Pt reports she is ready for discharge Pain L shoulder: Pain Intensity (Out of 10): 0 LBP: Pain Intensity (Out of 10): 0 Overall Improvement % Improvement: 50 Objective Objective/Function: L shoulder pain ranges from 0-3/10 MMT: L shoulder flex= 0, abd= 8, ER= 8, IR= 15 #F L shoulder ROM: flex= 87, abd= 65 degrees Pt is I with HEP Goals Goal 1:: Decrease L shoulder pain x 50% to aid with IADL's Goal Progress: Goal Met Goal 2:: Increase L shoulder flex and abd ROM x 20 degrees to aid with overhead lifting activities Goal Progress: Progressing Goal 3:: Increase L shoulder strength x 5#F in all planes to aid with IADL's Goal Progress: Progressing Goal 4:: I with HEP Goal Progress: Goal Met Plan Plan: Discharge to HEP D/C Information d/c sentence: If there are questions or concerns regarding this patient's physical therapy, please feel free to call me at [phone]. Thank you for the referral of thispatient. Sincerely, Ru Hernandez, PT, ATC Balance/Gait/Functional tests Balance/Special Test Scores Quick DASH Score: 31.8175 Improvement % Improvement: 50 <Electronically signed by Ru Hernandez PT, ATC> 09/13/23 [id number] CC: Dr. Georges Escobar MD ~ [facility] Signed [facility] Work Phone: Evaluation note Note Date & Type Note Facility Evaluation note No assessment information availa ble [facility] Work Phone: Reason for referral (narrative) Note Date & Type Note Facility Reason for referral (narrative) No reason for referral information available [facility] Work Phone: Summary Purpose Family History No Family History Records FoundNo Family History Records Found Advance Directives No Advanced Directives Records FoundNo Advanced Directives Records Found Chief Complaint and Reason for Visit Chief Complaint EORDER Chief Complaint EORDER pain, fall on december 31 Chief Complaint EORDER pain, fall on december 31 CHEST PAIN CHEST PAIN CHEST PAIN Chief Complaint EORDER pain, fall on december 31 CHEST PAIN CHEST PAIN CHEST PAIN OSTEOPOROSIS Chief Complaint E ORDER EORDER- LABS AND XRAY- LEFT SHOULDER Chief Complaint EORDER- LABS AND XRA Y- LEFT SHOULDER LT SHLD IMPINGE,LIKELY RTC TENDINOPATHY/RX HERE Chief Complaint LT SHLD IMPINGE,LIKE LY RTC TENDINOPATHY/RX HERE Additional Source Comments INFORMATION SOURCE (unrecogn ized section and content) DATE CREATED AUTHOR 01/31/2018 [facility] DATE CREATED AUTHOR AUTHOR'S ORGANIZ ATION 01/31/2025 [facility] Care Teams (unrecognized sec tion and content) Team Status: Active Member Role Status Dates Dr. Georges Escobar MD Family Provider Active Dr. Georges Escobar MD Primary Care Provider Active Team Status: Inactive Member Role Status Dates Dr. Georges Escobar MD Primary Care Pr ovider, Attending Provider, Referring Provider Active Team Status: Active Member Role Status Dates Dr. Georges Escobar MD Primary Care Pr ovider, Referring Provider, Other Provider Active Dr. Donald Ingram MD Attending Provider Activ e Team Status: Active Member Role Status Dates Dr. Georges Escobar MD Primary Care Provider, Referr ing Provider Active Dr. Donald Ingram MD Attending Provider Activ e Team Status: Inactive Member Role Status Dates Dr. Georges Escobar MD Primary Care Provider, Attend ing Provider Active Team Status: Inactive Member Role Status Dates Dr. Georges Escobar MD Primary Care Provider Active Start: January 22, 2025 End: January 22, 2025 Dr. Georges Escobar MD Attending Provider Active Start: January 22, 2025 End: January 22, 2025 Dr. Georges Escobar MD Referring Provider Active Start: January 22, 2025 End: January 22, 2025 FOR RECORDS PERTAINING TO PATIENTS WHO ARE [...] BE BASED ON THE PRIMARY CLINICAL RECORDS. [facility]. provides no warranty or guarantee of the accuracy or completeness of information in this document.
[2025-06-07 12:17] LABS: Color, Urine Yellow (Yellow); Glucose, Dipstick Normal (Normal); Ketone-Dipstick Negative (Negative); Leukocyte Esterase-Dipstick 25 /ul (Negative); Nitrite-Dipstick Negative (Negative); Occult Blood-Urine 10 /ul (Negative); Protein-Dipstick 30 mg/dl (Negative); Specific Gravity, Urine 1.020 (1.002-1.030); Urine Bilirubin Dipstick Negative (Negative)
[2025-06-07 12:20] LABS: Hematocrit 41.6 % (37-47); Hemoglobin 13.3 g/dL (12.0-15.0); Immature Granulocytes Count 0.020 X10^3/uL (0.0-0.0); Mean Corp Hgb Conc 32.0 g/dL (32-36); Mean Corpuscular Volume 92.7 fL (81-99); Mean Platelet Vol. 10.9 fl (6.2-12.0); NRBC Flagged by Analyzer 0 % (0-5); Platelet Count 229 K/mm3 (150-450); RBC Distribution Width CV 12.8 % (11.6-14.6); RBC Distribution Width SD 43.4 fl (35.1-43.9); Red Blood Count 4.49 M/mm3 (4.2-5.4); White Blood Count 5.0 K/mm3 (4.4-11.0)
[2025-06-07 12:27] LABS: Mucous, Urine 1+ /hpf (<or=2+); Squamous Epithelial Cells - UA 0-5 SEEN /hpf (5-10)
[2025-06-07 13:08] LABS: AST(SGOT) 21 U/L (<=31); Alanine Aminotransfer ALT/SGPT 10 U/L (<=34); Albumin, Serum 3.9 g/dL (3.4-4.8); Alkaline Phosphatase 82 U/L (35-104); Anion Gap 8 (5-15); BUN 13 mg/dL (4-19); BUN/Creat Ratio 10.8 RATIO (10-20); Calcium,Total 9.3 mg/dL (7.6-11.0); Carbon Dioxide 25.9 mmol/L (21.0-32.0); Chloride 106 mmol/L (98-108); Globulin 3.0 g/dL (2.2-4.2); Glucose 91 mg/dL (70-99); Potassium 4.2 mmol/L (3.3-5.1); Vitamin D,25 Hydroxy 41.8 ng/mL (30-100)
== END | disposition home or self-care (01) ==
LOC: MTLAB 09:26
PROVIDERS: PCP Family Medicine; Referring Provider Family Medicine; Visit Provider Family Medicine
DX: I10 Essential (primary) hypertension (principal)
CPT/HCPCS: 36415; 80053; 81001; 82306; 85025

== ENCOUNTER → 2025-07-06 | Outpatient (CLI) | payer MEDICARE, SELFPAY ==
--- NOTE | 2025-07-06 13:28 | BD_ITS ---
PROCEDURE: DEXA BONE DENSITY STUDY 07/06/2025 REASON FOR EXAM: F, age 80 y/o . Patient is postmenopausal. TECHNIQUE: Procedure Code: BDDBD Modality: DX Procedure: DEXA BONE DENSITY STUDY COMPARISON: DEXA examination dated 02/07/2023 FINDINGS: BMD and T-SCORES Lumbar spine: 0.869 g/cm2, T-score -2.1 Levels: L3 through L4 Change from prior: There has been a decrease in the bone mineral density of the lumbar spine by 0.7% since the prior study dated 02/07/2023. Left femoral neck: 0.519 g/cm2, T-score -3.0 Left total hip: 0.698 g/cm2, T-score -2.0 Change from prior: There has been a significant decrease in the bone mineral density of the left hip by 7.7% since the prior study dated 02/07/2023.. Right femoral neck: 0.492 g/cm2, T-score -3.2 Right total hip: 0.655 g/cm2, T-score -2.4 Change from prior: There has been a significant decrease in the bone mineral density of the right hip by 6.1% since the prior study dated 02/07/2023. The World Health Organization has defined the following categories based on bone density: Normal bone density: T-score equal to or greater than -1.0 Osteopenia: T-score between -1.0 and -2.5 Osteoporosis: T-score equal to or less than -2.5 FRAX (or Comparable) Fracture Risk Assessment: 10 Year Probability of Fracture: Major Osteoporotic Fracture: 30% Hip Fracture: 11% (Note: FRAX is not to be reported in setting of normal range bone density, osteoporosis on DEXA, known history of osteoporosis, prior osteoporotic hip or vertebral fracture, or for any patient undergoing pharmacological treatment for bone loss.) The National Osteoporosis Foundation (NOF) recommends pharmacological treatment for patients with a FRAX 10-year risk of 3% or higher for a hip fracture, or 20% or higher for a major osteoporotic fracture, to prevent osteoporosis and reduce fracture risk. The patient does meet the pharmacological treatment recommendations for prevention of osteoporosis. BD/Dexa Bone Density Study IMPRESSION: OSTEOPOROSIS. Recommend follow-up as clinically warranted. Reading Location: [facility]
== END | disposition home or self-care (01) ==
LOC: OPBD 13:18
PROVIDERS: PCP Family Medicine; Referring Provider Family Medicine; Visit Provider Family Medicine
DX: Z78.0 Asymptomatic menopausal state (principal); M81.0 Age-related osteoporosis without current pathological fracture
CPT/HCPCS: 77080

== ENCOUNTER → 2025-07-12 | Outpatient (CLI) | payer MEDICARE, SELFPAY ==
[2025-07-12 10:40] LABS: Red Blood Cells-Urine 0 SEEN /hpf (0-5)
[2025-07-12 12:20] LABS: Hematocrit 42.1 % (37-47); Hemoglobin 13.5 g/dL (12.0-15.0); Immature Granulocytes Count 0.020 X10^3/uL (0.0-0.0); Mean Corp Hgb Conc 32.1 g/dL (32-36); Mean Corpuscular Volume 92.7 fL (81-99); Mean Platelet Vol. 10.8 fl (6.2-12.0); NRBC Flagged by Analyzer 0 % (0-5); Platelet Count 234 K/mm3 (150-450); RBC Distribution Width CV 13.0 % (11.6-14.6); RBC Distribution Width SD 44.1 fl (35.1-43.9); Red Blood Count 4.54 M/mm3 (4.2-5.4); White Blood Count 5.2 K/mm3 (4.4-11.0)
[2025-07-12 12:23] LABS: Color, Urine Yellow (Yellow); Glucose, Dipstick Normal (Normal); Ketone-Dipstick Negative (Negative); Leukocyte Esterase-Dipstick 25 /ul (Negative); Nitrite-Dipstick Negative (Negative); Occult Blood-Urine Negative /ul (Negative); Protein-Dipstick 15 mg/dl (Negative); Specific Gravity, Urine 1.015 (1.002-1.030); Urine Bilirubin Dipstick Negative (Negative)
[2025-07-12 12:28] LABS: Squamous Epithelial Cells - UA 0-5 SEEN /hpf (5-10)
[2025-07-12 12:29] LABS: Mucous, Urine 1+ /hpf (<or=2+)
[2025-07-12 15:41] LABS: AST(SGOT) 24 U/L (<=31); Alanine Aminotransfer ALT/SGPT 13 U/L (<=34); Albumin, Serum 4.0 g/dL (3.4-4.8); Alkaline Phosphatase 82 U/L (35-104); Anion Gap 11 (5-15); BUN 13 mg/dL (4-19); BUN/Creat Ratio 10.3 RATIO (10-20); Calcium,Total 9.6 mg/dL (7.6-11.0); Carbon Dioxide 23.2 mmol/L (21.0-32.0); Chloride 106 mmol/L (98-108); Globulin 3.2 g/dL (2.2-4.2); Glucose 90 mg/dL (70-99); Potassium 4.0 mmol/L (3.3-5.1); Vitamin D,25 Hydroxy 45.6 ng/mL (30-100)
== END | disposition home or self-care (01) ==
LOC: MFPLAB 10:36
PROVIDERS: PCP Family Medicine; Visit Provider Family Medicine
DX: E55.9 Vitamin D deficiency, unspecified (principal); I10 Essential (primary) hypertension
CPT/HCPCS: 36415; 80053; 81001; 82306; 85025